=== PATIENT | female | born 1935 | race Caucasian/White ===

== ENCOUNTER 2016-04-01 12:51 | Inpatient (IN) | payer MEDICARE ==
[~2016-04-01] VITALS: Ht 152.4 cm; Wt 54.7 kg
[~2016-04-01 12:51] MED LIST: ASP325T PO; ATR20T PO; DEPRESSION MED; METO-333 PO; SERT50TA PO
[2016-04-01] MEDS ORDERED: AZITHROMYCIN IV ADD-VANTAGE 500 MG in SODIUM CHLORIDE (ADD-VANTAGE) 250 ML IV NR (13:07)
[2016-04-01] MEDS ORDERED: RT-ALBUTEROL/IPRATROPIUM 3 ML (DUONEB) VIAL INH NR (13:15)
--- NOTE | 2016-04-01 13:15 | History & Physicial ---
History of Present Illness History of Present Illness Reason for visit/HPI MRS. ASHER PRESENTED TO THE [facility] [place] WITH CONCERN FOR CONFUSION, WEAKNESS , FEVER. HER GRANDDAUGHTER TOOK HER OUT TO BE ACUTELY EVALUATED BECAUSE OF THE AFOREMENTIONED CONCERNS. SHE WAS FOUND TO HAVE A FEVER OF 102F, POSITIVE FOR INFLUENZA A AND CHEST XRAY SHOWED POSSIBLE PNEUMONIA. UA WAS OBTAINED WELL WHICH WAS POSITIVE FOR URINARY TRACT INFECTION. THE NURSE PRACTITIONER AT THE URGENT CARE CALLED FOR ADMISSION OF PT TO THE HOSPITAL. Date of Admission I consulted on this patient on 04/01/16 13:10 Attending Physician Jeanette Balbuena MD Admitting Physician JEANETTE BALBUENA MD Consult Allergies and Home Medications Allergies Coded Allergies: No Known Drug Allergies (Unverified , 08/15/13) Home Medications (Reported) Aspirin 325 Mg Tab #30 325 MG PO DAILY@0900 Prescribed by: RUBEN BAEZ on 08/17/13 0750 Atorvastatin 20 Mg Tablet #30 1 EACH PO DAILY Prescribed by: RACHID COBIAN on 08/17/13 0807 Metoprolol Tartrate 25 Mg Tablet #60 1 EACH PO BID Prescribed by: RACHID COBIAN on 08/17/13 0807 Sertraline Hcl 50 Mg Tablet 50 MG PO DAILY (Reported) Past Gurngom-Edeuvq-Jfvgwi Hx Patient Social History Marrital Status: Living Status: LIVES AT HOME ALONE, FAMILY CHECKS ON PT FREQUENTLY Employed/Student: retired Alcohol Use: Rarely Uses Smoking Status: Current Everyday Smoker (1/2PPD) 2nd Hand Smoke Exposure: Yes Physical Abuse Screen: No Sexual Abuse: No Recent Foreign Travel: No Contact w/other who traveled: No Recent Hopitalizations: No Recent Infectious Disease Expo: No Immunizations Up To Date Tetanus Booster (TDap): Unknown Seasonal Allergies Seasonal Allergies: No Surgeries HX Surgeries: Yes (PT HAS REFUSED COLONOSCOPY IN THE PAST) Surgeries: Cystectomy (MAY 1999) Respiratory Hx Respiratory Disorders: No Cardiovascular Hx Cardiovascular Disorders: Yes Cardiac Disorders: Coronary Artery Disease (NONSTMI), High Cholesterol, Hypertension Neurological Hx Neurological Disorders: Yes Neurological Disorders: Stroke (PT REFUSES TO TAKE PLAVIX) Reproductive System : No Female Reproductive Disorders: Denies PORTER BATH Hx: Menopausal Genitourinary Hx Genitourinary Disorders: No Gastrointestinal Hx Gastrointestinal Disorders: No Musculoskeletal Hx Musculoskeletal Disorders: Yes Musculoskeletal Disorders: Arthritis Endocrine Hx Endocrine Disorders: No HEENT HX ENT Disorders: No Loss of Vision: Denies Hearing Impairment: Denies Cancer Hx Cancer: No Psychosocial Hx Psychiatric Problems: Yes Behavioral Health Disorders: Anxiety, Depression Integumentary HX Skin/Integumentary Disorder: No Blood Transfusions Adverse Reaction to a Blood Tr: No Reviewed Nursing Assessment Reviewed/Agree w Nursing PMH: Yes Family Medical History Significant Family History: Diabetes (DAUGHTER), Hypertension (DAUGHTER AND PT' S FATHER) Constitutional: chills fever malaise weakness EENTM: No hoarseness, No mouth pain, No throat pain, No throat swelling Respiratory: coughNo dyspnea on exertion, No short of breath Cardiovascular: No chest pain, No edema, No palpitations Gastrointestinal: No abdominal pain, No constipation, No diarrhea, No nausea Genitourinary: frequency Musculoskeletal: No back pain, muscle stiffness Skin: no symptoms reportedNo lesions, No lumps, No rash Psychiatric/Neurological: Depressed Weakness All Other Systems Reviewed Negative Unless Noted: Yes Physical Exam Vital Signs Capillary Refill : General Appearance: No Apparent Distress WD/WN Eyes: Bilateral Eye EOMI, Bilateral Eye Normal Inspection, Bilateral Eye PERRL HEENT: PERRL/EOMI Pharynx Normal Neck: Full Range of Motion Supple Respiratory: Chest Non Tender No Accessory Muscle Use No Respiratory Distress Crackles Cardiovascular: Regular Rate, Rhythm No Edema Gastrointestinal: Normal Bowel Sounds No Organomegaly Non Tender Soft Rectal: Deferred Back: Normal Inspection Extremity: Normal Capillary Refill No Pedal Edema Neurologic/Psychiatric: Alert Oriented x3 No Motor/Sensory Deficits Normal 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 URINARY TRACT INFECTION - REPEAT UA - CULTURE IF POSITIVE, PT STARTED ON ROCEPHIN, SHOULD COVER MOST URINARY ORGANISMS. HYPERTENSION - MONITOR PRESSURE - IF NEEDED RESTART HOME MEDS - PT HAS NOT BEEN REFILLING HER MEDICATIONS - NOT SURE IF SHE IS TAKING ANY MEDICATIONS AT ALL AT THIS TIME. HYPERLIPIDEMIA - CHECK LABS PRIOR TO DISCHARGE HX OF NON STMI- PT HAS BEEN NON COMPLIANT AND REFUSES USE OF PLAVIX, WILL CONTINUE WITH ASPIRIN. HX OF CVA - REFUSED PLAVIX ON PREVIOUS EXAM AND CONTINUE WITH ASPIRIN DEPRESSION - ANXIETY- PT RECENTLY LOST HER AND DAUGHTER ON THE SAME DAY WITHIN 4 HOURS OF PASSING, HER DAUGHTER . Admission Diagnosis INFLUENZA POSITIVE PNEUMONIA URINARY TRACT INFECTION HYPERTENSION HYPERLIPIDEMIA HX OF NON STMI HX OF CVA DEPRESSION ANXIETY JEANETTE BALBUENA MD Apr 01, 2016 13:15
--- OUTSIDE RECORDS SUMMARY | 2016-04-01 13:51 | XMS REPORT | Continuity of Care Document ---
Author Author [facility] Organization [facility] Address Unknown Phone Unavailable Allergies Medications Problems Procedures Results Encounters ACCT No. Visit Date/Time Discharge Status Pt. Type Provider Facility Loc./Unit Complaint [id number] 08/15/2013 14:05:00 2013 09:41:00 DIS Inpatient
[2016-04-01] MEDS ORDERED: CATHETER FLUSH 10 ML SYR IV PRN (14:15)
[2016-04-01] MEDS ORDERED: ONDANSETRON 4 MG/2 ML (SDV) Z0FRAN IVP PRN (14:30)
[2016-04-01] MEDS ORDERED: ACETAMINOPHEN 500 MG TAB (TYLENOL) PO PRN (14:30)
[2016-04-01] MEDS ORDERED: FLU TRIvalent (5 YOA+) 2016-17 (AFLURIA) 0.5 ML IM ONE (14:45)
--- NOTE | 2016-04-01 15:08 | Diagnostic Imaging Report ---
INDICATION: Shortness of breath. EXAMINATION: PA and lateral chest. FINDINGS: Heart size and pulmonary vascularity are normal. Lungs are clear. There are no effusions or pneumothoraces. IMPRESSION: Negative chest. Dictated by: Dictated on workstation # [id number]
[2016-04-01] MEDS: NS IV 1000 ML 1,000 ML IV SCH ×2 (15:22→23:15)
[2016-04-01] MEDS: ENOXAPARIN 40 MG/0.4 ML (LOVENOX) SYR SC SCH (15:22)
[2016-04-01] MEDS: cefTRIAXone INJECTION 1,000 MG in NS (IVPB) 50 ML IV SCH (15:22)
[2016-04-01] MEDS: LACTOBACILLUS Acidoph/Bulgar 1 GM (LACTINEX) PACKET PO SCH ×2 (15:22→20:12)
[2016-04-01] MEDS ORDERED: ASPI-808 PO (15:25)
[2016-04-01] MEDS ORDERED: FAMO20TA45 PO (15:25)
[2016-04-01 16:03] LABS: BILIRUBIN,URINE NEGATIVE (NEGATIVE); KETONES,URINE 1+ (NEGATIVE); LEUKOCYTE ESTERASE ,URINE NEGATIVE (NEGATIVE); NITRITE,URINE NEGATIVE (NEGATIVE); PH,URINE 6 (5-9); PROTEIN,URINE 1+ (NEGATIVE); UROBILINOGEN,URINE NORMAL (NORMAL)
[2016-04-01] MEDS ORDERED: RT-ALBUTEROL/IPRATROPIUM 3 ML (DUONEB) VIAL INH PRN (16:30)
[2016-04-01 16:45] VITALS: BP 157/78
[2016-04-01 16:48] LABS: BASOPHILS % (AUTO) 0 % (0-10); EOSINOPHILS % (AUTO) 0 % (0-10); LYMPHOCYTES # (AUTO) 0.7 X 10^3 (1.0-4.0); LYMPHOCYTES % (AUTO) 15 % (12-44); MEAN CORPUSCULAR HEMOGLOBIN 31 PG (25-34); MEAN CORPUSCULAR HGB CONC 34 G/DL (32-36); MEAN CORPUSCULAR VOLUME 90 FL (80-99); MEAN PLATELET VOLUME 11.4 FL (7.4-10.4); MONOCYTES # (AUTO) 0.3 X 10^3 (0.0-1.0); MONOCYTES % (AUTO) 7 % (0-12); NEUTROPHILS # (AUTO) 3.3 X 10^3 (1.8-7.8); NEUTROPHILS % (AUTO) 77 % (42-75); PLATELET COUNT 126 10^3/uL (130-400); RED BLOOD COUNT 4.31 10^6/uL (4.35-5.85); RED CELL DISTRIBUTION WIDTH 14.4 % (10.0-14.5); WHITE BLOOD COUNT 4.3 10^3/uL (4.3-11.0)
[2016-04-01 17:10] LABS: ALANINE AMINOTRANSFERASE 16 U/L (0-55); ALBUMIN 3.7 G/DL (3.2-4.5); ANION GAP 12 MMOL/L (5-14); ASPARTATE AMINO TRANSFERASE 20 U/L (5-34); BILIRUBIN,TOTAL 0.4 MG/DL (0.1-1.0); BLOOD UREA NITROGEN 11 MG/DL (7-18); BUN/CREATININE RATIO 14; CALCIUM 8.3 MG/DL (8.5-10.1); CARBON DIOXIDE 23 MMOL/L (21-32); CHLORIDE 104 MMOL/L (98-107); CREATININE SERUM 0.78 MG/DL (0.60-1.30); GFR ESTIMATED > 60; GLUCOSE 88 MG/DL (70-105); POTASSIUM 3.3 MMOL/L (3.6-5.0); SODIUM 139 MMOL/L (135-145); TOTAL PROTEIN 6.2 G/DL (6.4-8.2)
[2016-04-01] MEDS: RT-ALBUTEROL/IPRATROPIUM 3 ML (DUONEB) VIAL INH SCH (20:05)
[2016-04-01] MEDS: FAMOTIDINE 20 MG (PEPCID) TABLET PO SCH (20:12)
[2016-04-01] MEDS: OSELTAMIVIR 75 MG (TAMIFLU) BOX OF 10 PO SCH (20:12)
[2016-04-01 20:30] VITALS: BP 192/85
[2016-04-02 00:47] VITALS: BP 160/84
[2016-04-02 04:00] VITALS: BP 120/64
[2016-04-02 06:25] LABS: RED BLOOD COUNT 3.94 10^6/uL (4.35-5.85); RED CELL DISTRIBUTION WIDTH 14.2 % (10.0-14.5); WHITE BLOOD COUNT 5.2 10^3/uL (4.3-11.0)
[2016-04-02] MEDS: LACTOBACILLUS Acidoph/Bulgar 1 GM (LACTINEX) PACKET PO SCH ×4 (06:33→20:50)
[2016-04-02 06:50] LABS: ALANINE AMINOTRANSFERASE 81 U/L (0-55); ALBUMIN 3.2 G/DL (3.2-4.5); ANION GAP 9 MMOL/L (5-14); ASPARTATE AMINO TRANSFERASE 98 U/L (5-34); BILIRUBIN,TOTAL 0.3 MG/DL (0.1-1.0); BLOOD UREA NITROGEN 11 MG/DL (7-18); BUN/CREATININE RATIO 15; CALCIUM 7.8 MG/DL (8.5-10.1); CARBON DIOXIDE 23 MMOL/L (21-32); CHLORIDE 107 MMOL/L (98-107); CREATININE SERUM 0.73 MG/DL (0.60-1.30); GFR ESTIMATED > 60; GLUCOSE 120 MG/DL (70-105); POTASSIUM 3.1 MMOL/L (3.6-5.0); SODIUM 139 MMOL/L (135-145); TOTAL PROTEIN 5.2 G/DL (6.4-8.2)
[2016-04-02] MEDS: RT-ALBUTEROL/IPRATROPIUM 3 ML (DUONEB) VIAL INH SCH ×3 (07:00→20:35)
[2016-04-02] MEDS: OSELTAMIVIR 75 MG (TAMIFLU) BOX OF 10 PO SCH ×2 (07:38→20:51)
[2016-04-02] MEDS: FAMOTIDINE 20 MG (PEPCID) TABLET PO SCH ×2 (07:38→20:50)
[2016-04-02] MEDS: NS IV 1000 ML 1,000 ML IV SCH (07:40)
[2016-04-02 08:00] VITALS: BP 142/75
--- NOTE | 2016-04-02 08:09 | Progress Note (SOAP) ---
Subjective Subjective/Events-last exam PT REPORTS THAT SHE IS FEELING BETTER TODAY - SHE STATES THAT SHE WOULD LIKE TO GO HOME TODAY. SHE REPORTS THAT SHE DOES NOT HAVE ANY ABDOMINAL PAIN, NO NAUSEA, NO CHEST PAIN , NO SHORTNESS OF BREATH. Review of Systems General: No Chills, No Fatigue HEENT: No Head Aches Pulmonary: No Dyspnea, Cough Cardiovascular: No: Chest Pain, Palpitations Gastrointestinal: No: Abdominal Pain, Nausea Genitourinary: No Dysuria Musculoskeletal: No: back pain Neurological: No: Confusion, Weakness Objective Exam Vital Signs Date Time Temp Pulse Resp B/P Pulse Ox O2 Delivery O2 Flow Rate FiO2 04/02/16 07:00 92 04/02/16 04:00 98.4 83 18 120/64 95 Nasal Cannula 2.00 04/02/16 02:02 100.3 04/02/16 00:57 101.1 04/02/16 00:47 101.1 112 16 160/84 95 Nasal Cannula 2.00 04/01/16 23:08 93 04/01/16 21:00 Nasal Cannula 1.00 04/01/16 20:30 98.2 100 24 192/85 92 Room Air 04/01/16 20:05 92 04/01/16 16:45 97.8 74 18 157/78 95 Room Air 04/01/16 16:05 93 I & O 04/02/16 07:00 Intake Total 1240 ml Output Total 500 ml Balance 740 ml Capillary Refill : General Appearance: No Apparent Distress WD/WN Thin HEENT: PERRL/EOMI Pharynx Normal Neck: Full Range of Motion Supple Respiratory: Chest Non Tender Decreased Breath Sounds Cardiovascular: Regular Rate, Rhythm No Edema Gastrointestinal: normal bowel sounds non tender soft no organomegaly Extremity: Normal Capillary Refill No Pedal Edema Neurologic/Psychiatric: Alert Oriented x3 No Motor/Sensory Deficits Normal Mood/Affect Skin: Warm/Dry Lymphatic: No Adenopathy Results Lab Laboratory Tests 04/01/16 15:30: Urine Bacteria NEGATIVE, Urine Bilirubin NEGATIVE, Urine Casts NONE, Urine Clarity CLEAR, Urine Color YELLOW, Urine Crystals NONE, Urine Culture Indicated NO, Urine Glucose (UA) NEGATIVE, Urine Ketones 1+H, Urine Leukocyte Esterase NEGATIVE, Urine Mucus NEGATIVE, Urine Nitrite NEGATIVE, Urine Protein 1+H, Urine RBC 0-2, Urine RBC (Auto) 5+H, Urine Specific [place] 1.010L, Urine Squamous Epithelial Cells 2-5, Urine Urobilinogen NORMAL, Urine WBC NONE, Urine pH 6 04/01/16 16:30: Alanine Aminotransferase (ALT/SGPT) 16, Albumin 3.7, Alkaline Phosphatase 55, Anion Gap 12, Aspartate Amino Transf (AST/SGOT) 20, BUN/Creatinine Ratio 14, Basophils # (Auto) 0.0, Basophils (%) (Auto) 0, Blood Urea Nitrogen 11, Calcium Level 8.3L, Carbon Dioxide Level 23, Chloride Level 104, Creatinine 0.78, Eosinophils # (Auto) 0.0, Eosinophils (%) (Auto) 0, Estimat Glomerular Filtration Rate > 60, Glucose Level 88, Hematocrit 39, Hemoglobin 13.3, Lactic Acid Level 1.2, Lymphocytes # (Auto) 0.7L, Lymphocytes (%) (Auto) 15, Mean Corpuscular Hemoglobin 31, Mean Corpuscular Hemoglobin Concent 34, Mean Corpuscular Volume 90, Mean Platelet Volume 11.4H, Monocytes # (Auto) 0.3, Monocytes (%) (Auto) 7, Neutrophils # (Auto) 3.3, Neutrophils (%) (Auto) 77H, Platelet Count 126L, Potassium Level 3.3L, Red Blood Count 4.31L, Red Cell Distribution Width 14.4, Sodium Level 139, Total Bilirubin 0.4, Total Protein 6.2L, White Blood Count 4.3 04/02/16 06:10: Alanine Aminotransferase (ALT/SGPT) 81H, Albumin 3.2, Alkaline Phosphatase 61, Anion Gap 9, Aspartate Amino Transf (AST/SGOT) 98H, BUN/Creatinine Ratio 15, Blood Urea Nitrogen 11, Calcium Level 7.8L, Carbon Dioxide Level 23, Chloride Level 107, Creatinine 0.73, Estimat Glomerular Filtration Rate > 60, Glucose Level 120H, Hematocrit 35, Hemoglobin 12.0, Mean Corpuscular Hemoglobin 31, Mean Corpuscular Hemoglobin Concent 34, Mean Corpuscular Volume 90, Mean Platelet Volume 11.0H, Platelet Count 111L, Potassium Level 3.1L, Red Blood Count 3.94L, Red Cell Distribution Width 14.2, Sodium Level 139, Total Bilirubin 0.3, Total Protein 5.2L, White Blood Count 5.2 Assessment/Plan Assessment/Plan Assess & Plan/Chief Complaint INFLUENZA POSITIVE PNEUMONIA URINARY TRACT INFECTION HYPERTENSION HYPERLIPIDEMIA HX OF NON STMI HX OF CVA DEPRESSION ANXIETY ELEVATED LIVER ENZYMES INFLUENZA POSITIVE AND DX OF PNEUMONIA BY OUTSIDE XRAY - REPEAT CHEST XRAY NEGATIVE - STARTED ON TAMIFLU FOR TREATMENT OF FLU, MONITOR SERIAL CHEST XRAYS, MAT PROTOCOL AND BREATHING TREATMENTS. URINARY TRACT INFECTION - REPEAT UA - CULTURE IF POSITIVE, PT STARTED ON ROCEPHIN, SHOULD COVER MOST URINARY ORGANISMS. HYPERTENSION - MONITOR PRESSURE - IF NEEDED RESTART HOME MEDS - PT HAS NOT BEEN REFILLING HER MEDICATIONS - NOT SURE IF SHE IS TAKING ANY MEDICATIONS AT ALL AT THIS TIME. HYPERLIPIDEMIA - CHECK LABS PRIOR TO DISCHARGE HX OF NON STMI- PT HAS BEEN NON COMPLIANT AND REFUSES USE OF PLAVIX, WILL CONTINUE WITH ASPIRIN. HX OF CVA - REFUSED PLAVIX ON PREVIOUS EXAM AND CONTINUE WITH ASPIRIN DEPRESSION - ANXIETY- PT RECENTLY LOST HER AND DAUGHTER ON THE SAME DAY WITHIN 4 HOURS OF PASSING, HER DAUGHTER . ELEVATED LIVER ENZYMES - REPEAT LABS - CONTINUE WITH FLUIDS Diagnosis/Problems: Clinical Quality Measures DVT/VTE Risk/Contraindication: Risk Factor Score Per Nursin RFS Level Per Nursing on Admit: 3=High JEANETTE MASTERS MD Apr 02, 2016 08:09
[2016-04-02] MEDS ORDERED: KCL 20 MEQ TAB (K-DUR) PO NR (08:31)
[2016-04-02 12:00] VITALS: BP 157/82
[2016-04-02] MEDS ORDERED: cefTRIAXone 1 GM (ROCEPHIN) VIAL ONE (13:38)
[2016-04-02] MEDS ORDERED: NS (IVPB) 50 ML ONE (13:38)
[2016-04-02] MEDS: ENOXAPARIN 40 MG/0.4 ML (LOVENOX) SYR SC SCH (14:05)
[2016-04-02] MEDS: cefTRIAXone INJECTION 1,000 MG in NS (IVPB) 50 ML IV SCH (14:06)
[2016-04-02 22:15] VITALS: BP 170/86
[2016-04-03] VITALS: BP 160/78
[2016-04-03 04:00] VITALS: BP 128/64
[2016-04-03] MEDS ORDERED: DILTIAZEM 60 MG (CARDIZEM) TAB PO ONE (05:15)
[2016-04-03 05:33] LABS: MEAN PLATELET VOLUME 12.3 FL (7.4-10.4); RED BLOOD COUNT 4.32 10^6/uL (4.35-5.85); RED CELL DISTRIBUTION WIDTH 14.4 % (10.0-14.5); WHITE BLOOD COUNT 5.1 10^3/uL (4.3-11.0)
[2016-04-03] MEDS ORDERED: MAGNESIUM 1 GM/100 ML IVPB 100 ML IV ONE (05:45)
[2016-04-03] MEDS ORDERED: ENOXAPARIN 100 MG/1 ML (LOVENOX) SYR SC SCH ×2 (05:45→06:22)
[2016-04-03] MEDS ORDERED: KCL 10 MEQ TAB (MICRO K) PO ONE (05:45)
[2016-04-03 05:55] LABS: ANION GAP 13 MMOL/L (5-14); BLOOD UREA NITROGEN 9 MG/DL (7-18); BUN/CREATININE RATIO 12; CALCIUM 8.2 MG/DL (8.5-10.1); CARBON DIOXIDE 22 MMOL/L (21-32); CHLORIDE 105 MMOL/L (98-107); CREATININE SERUM 0.76 MG/DL (0.60-1.30); GFR ESTIMATED > 60; GLUCOSE 96 MG/DL (70-105); POTASSIUM 3.8 MMOL/L (3.6-5.0); SODIUM 140 MMOL/L (135-145)
[2016-04-03] MEDS: LACTOBACILLUS Acidoph/Bulgar 1 GM (LACTINEX) PACKET PO SCH ×4 (06:00→21:00)
[2016-04-03 08:00] VITALS: BP 94/54
[2016-04-03] MEDS: FAMOTIDINE 20 MG (PEPCID) TABLET PO SCH ×2 (08:30→21:05)
[2016-04-03] MEDS: OSELTAMIVIR 75 MG (TAMIFLU) BOX OF 10 PO SCH ×2 (08:31→21:04)
[2016-04-03] MEDS: RT-ALBUTEROL/IPRATROPIUM 3 ML (DUONEB) VIAL INH SCH ×3 (09:10→19:29)
--- NOTE | 2016-04-03 10:53 | Progress Note (SOAP) ---
Subjective Subjective/Events-last exam PT REPORTS THAT SHE IS FEELING FATIGUED THIS MORNING, BUT SHE HAS LESS OF A COUGH THIS MORNING THAN YESTERDAY SHE REPORTS THAT HER APPETITE IS OKAY. SHE DENIES ANY CHEST PAIN OR SHORTNESS OF BREATH, DENIES FEELING THE PALPITATIONS. Review of Systems General: Fatigue HEENT: No Head Aches, No Dysphasia Pulmonary: No Dyspnea, No Cough Cardiovascular: No: Chest Pain, Palpitations Gastrointestinal: No: Abdominal Pain, Nausea Genitourinary: Frequency Musculoskeletal: No: back pain Neurological: No: Confusion, Weakness Objective Exam Vital Signs Date Time Temp Pulse Resp B/P Pulse Ox O2 Delivery O2 Flow Rate FiO2 04/03/16 09:10 90 3.00 04/03/16 04:00 98.4 120 20 128/64 97 Nasal Cannula 2.00 04/03/16 00:00 98.0 89 24 160/78 96 Nasal Cannula 3.00 04/02/16 22:15 170/86 04/02/16 21:05 98.7 107 20 99 Nasal Cannula 2.00 04/02/16 20:50 Nasal Cannula 3.00 04/02/16 20:36 92 4.00 04/02/16 16:50 100.0 93 20 99 Nasal Cannula 2.00 04/02/16 13:51 98 04/02/16 12:00 99.0 80 20 157/82 98 Nasal Cannula 2.00 I & O 04/03/16 07:00 Intake Total 2050 ml Output Total 250 ml Balance 1800 ml Capillary Refill : General Appearance: No Apparent Distress WD/WN HEENT: PERRL/EOMI Pharynx Normal Neck: Full Range of Motion Supple Respiratory: Chest Non Tender Lungs Clear Normal Breath Sounds No Accessory Muscle Use No Respiratory Distress Cardiovascular: Irregularly Irregular Gastrointestinal: normal bowel sounds non tender soft no organomegaly no pulsatile mass Extremity: No Pedal Edema Neurologic/Psychiatric: Alert Oriented x3 No Motor/Sensory Deficits Normal Mood/Affect Skin: Warm/Dry Lymphatic: No Adenopathy Results Lab Laboratory Tests 04/03/16 04:40: Anion Gap 13, BUN/Creatinine Ratio 12, Blood Urea Nitrogen 9, Calcium Level 8.2L , Carbon Dioxide Level 22, Chloride Level 105, Creatinine 0.76, Estimat Glomerular Filtration Rate > 60, Glucose Level 96, Hematocrit 39, Hemoglobin 13.1, Mean Corpuscular Hemoglobin 30, Mean Corpuscular Hemoglobin Concent 34, Mean Corpuscular Volume 90, Mean Platelet Volume 12.3H, Platelet Count 119L, Potassium Level 3.8, Red Blood Count 4.32L, Red Cell Distribution Width 14.4, Sodium Level 140, White Blood Count 5.1 Microbiology 04/01/16 Blood Culture - Preliminary, Resulted No growth 04/01/16 Gram Stain - Final, Resulted 04/01/16 Sputum Culture - Preliminary, Resulted Usual/normal carmen isolated. Assessment/Plan Assessment/Plan Assess & Plan/Chief Complaint INFLUENZA POSITIVE ATRIAL FIBRILLATION HYPERTENSION HYPERLIPIDEMIA HX OF NON STMI HX OF CVA DEPRESSION ANXIETY ELEVATED LIVER ENZYMES INFLUENZA POSITIVE AND DX OF PNEUMONIA BY OUTSIDE XRAY - REPEAT CHEST XRAY NEGATIVE - STARTED ON TAMIFLU FOR TREATMENT OF FLU, MONITOR SERIAL CHEST XRAYS, MAT PROTOCOL AND BREATHING TREATMENTS. URINARY TRACT INFECTION - REPEAT UA -NEGATIVE HYPERTENSION - MONITOR PRESSURE - IF NEEDED RESTART HOME MEDS - PT HAS NOT BEEN REFILLING HER MEDICATIONS - NOT SURE IF SHE IS TAKING ANY MEDICATIONS AT ALL AT THIS TIME. HYPERLIPIDEMIA - CHECK LABS PRIOR TO DISCHARGE HX OF NON STMI- PT HAS BEEN NON COMPLIANT AND REFUSES USE OF PLAVIX, WILL CONTINUE WITH ASPIRIN. HX OF CVA - REFUSED PLAVIX ON PREVIOUS EXAM AND CONTINUE WITH ASPIRIN DEPRESSION - ANXIETY- PT RECENTLY LOST HER AND DAUGHTER ON THE SAME DAY WITHIN 4 HOURS OF PASSING, HER DAUGHTER . ELEVATED LIVER ENZYMES - REPEAT LABS - PT REFUSED FLUIDS YESTERDAY - THEREFORE THEY WERE DISCONTINUED - MONITOR LAB THIS MORNING. ACUTE ONSET ATRIAL FIBRILLATION - IN THE MIDDLE OF THE NIGHT - PT GIVEN CARDIZEM , PLACED ON TELEMETRY, AND CONSULT PLACED TO DR. MALAVE. PT TO HAVE AN ECHO TODAY - AND START ON ELIQUIS 2.5MG BID DUE TO AGE AND WEIGHT. Diagnosis/Problems: Clinical Quality Measures DVT/VTE Risk/Contraindication: Risk Factor Score Per Nursin RFS Level Per Nursing on Admit: 3=High JEANETTE MASTERS MD Apr 03, 2016 10:53
[2016-04-03 11:15] LABS: ALBUMIN 3.4 G/DL (3.2-4.5); BILIRUBIN,DIRECT 0.2 MG/DL (0.0-0.3); BILIRUBIN,INDIRECT 0.2 MG/DL; BILIRUBIN,TOTAL 0.4 MG/DL (0.1-1.0); TOTAL PROTEIN 5.7 G/DL (6.4-8.2)
--- NOTE | 2016-04-03 11:28 | Consultation-Cardiology ---
HPI-Cardiology Cardiology Consultation: Date of Consultation 04/03/16 Date of Admission 04-01-16 Attending Physician Jeanette Balbuena MD Admitting Physician Jeanette Balbuena MD Consulting Physician Theodore Malave MD HPI: Chief Complaint: New onset a-fib with RVR Ms. Mann is an 80 year old female who was admitted on 04-01-16 with increasing dyspnea and productive cough. She tested positive of influenza. She developed new onset a-fib with RVR during the night. This morning she reports she is feeling much better. She does not report any CP, palpitations, syncope or near syncope. She states she is feeling better. She reports her breathing is better today. She reports productive cough. Her daughter is at the bedside. She smokes approx 1/2 pack of cigs per day. She only takes ASA 325mg daily for home medications. She reports intermittent ankle edema which is least upon awakening in the morning and increases as the day goes on. Review of Systems-Cardiology Review of Systems Constitutional: As described under HPI Eyes: No blurred vision, No drainage, No pain, No vision change Ears/Nose/Throat: No ear discharge, No ear pain, No nasal drainage, No ulcerations Respiratory: As described under HPI Cardiovascular: As described under HPI Gastrointestinal: No constipation, No diarrhea, No nausea, No vomiting, No stool coloration changes Genitourinary: No dysuria, No discharge, No frequency, No hematuria, No urgency Skin: No rash, No skin related problems, No ulcerations Psychiatric/Neurological: No anxiety, No depression, No focal weakness, No seizure, No syncope Hematologic: No bleeding abnormalities All Other Systems Reviewed Negative Unless Noted: Yes ELO-[id number] Hx Patient Social History Marrital Status: Living Status: LIVES AT HOME ALONE, FAMILY CHECKS ON PT FREQUENTLY Employed/Student: retired Alcohol Use: Denies Use Recreational Drug Use: No Smoking Status: Current Everyday Smoker Type Used: Cigarettes 2nd Hand Smoke Exposure: Yes Recent Foreign Travel: No Recent Infectious Disease Expo: No Physical Abuse Screen: No Sexual Abuse: No Immunizations Up To Date Tetanus Booster (TDap): Unknown Past Medical History PMH As described under Assessment. Family Medical History Family Medical History: She denies any family h/o CAD or SCD. Family History: G8 BROTHER Family history: Hypertension Hypercholesterolemia Allergies and Home Medications Allergies Coded Allergies: No Known Drug Allergies (Unverified , 08/15/13) Home Medications Aspirin 325 Mg Tablet 325 MG PO DAILY (Reported) Famotidine 20 Mg Tablet 20 MG PO DAILY PRN PRN INDIGESTION (Reported) Physical Exam-Cardiology Physical Exam Vital Signs/I&O Vital Sign - Last 12Hours 04/03/16 04/03/16 04/03/16 04/03/16 08:00 09:10 12:00 13:48 Temp 99.4 100.3 Pulse 71 87 Resp 20 24 B/P 94/54 126/93 Pulse Ox 91 90 93 97 O2 Delivery Nasal Cannula Nasal Cannula O2 Flow Rate 2.00 3.00 2.00 Intake and Output 04/03/16 00:00 Intake Total 1050 ml Output Total 250 ml Balance 800 ml Capillary Refill : Constitutional: appears stated ageNo apparent distress, well-developed well- nourished HEENT: PERRLNo discharge, hearing is well preserved oral hygience is goodNo ulceration, No xanthelasmas are seen Neck: No carotid bruit, carotid pulses are 2 + bilaterally Respiratory: No accessory muscle use, No respiratory distress, other ( diminished bases bilat) Cardiovascular: regular rate-rhythmNo JVD, S1 and S2 Gastrointestinal: No tender, soft roundNo spleenomegaly Extremities: No clubbing, No cyanosis, No significant edema Neurologic/Psychiatric: alert oriented x 3 power is 5/5 both on sides Skin: No rash, No ulcerations Data Review Labs Laboratory Tests 04/03/16 04:40: Alanine Aminotransferase (ALT/SGPT) 79H, Albumin 3.4, Alkaline Phosphatase 70, Anion Gap 13, Aspartate Amino Transf (AST/SGOT) 73H, BUN/Creatinine Ratio 12, Blood Urea Nitrogen 9, Calcium Level 8.2L, Carbon Dioxide Level 22, Chloride Level 105, Creatinine 0.76, Direct Bilirubin 0.2, Estimat Glomerular Filtration Rate > 60, Glucose Level 96, Hematocrit 39, Hemoglobin 13.1, Indirect Bilirubin 0.2, Mean Corpuscular Hemoglobin 30, Mean Corpuscular Hemoglobin Concent 34, Mean Corpuscular Volume 90, Mean Platelet Volume 12.3H, Platelet Count 119L, Potassium Level 3.8, Red Blood Count 4.32L, Red Cell Distribution Width 14.4, Sodium Level 140, Total Bilirubin 0.4, Total Protein 5.7L, White Blood Count 5.1 Microbiology 2/6/17 Blood Culture - Preliminary, Resulted No growth 04/01/16 Gram Stain - Final, Complete 04/01/16 Sputum Culture - Final, Complete Usual/normal carmen isolated. Radiology NAME: ERIK MANN [facility] REC#: [id number] PT STATUS: ADM IN : 1935 PHYSICIAN: JEANETTE BALBUENA MD ADMIT DATE: 04/01/16 Signed Date of Exam: 04/01/16 CHEST PA/LAT (2 VIEW) INDICATION: Shortness of breath. EXAMINATION: PA and lateral chest. FINDINGS: Heart size and pulmonary vascularity are normal. Lungs are clear. There are no effusions or pneumothoraces. IMPRESSION: Negative chest. Dictated by: Dictated on workstation # [id number] Dict: 04/01/16 1506 Trans: 04/01/16 1526 [id number] Interpreted by: SAHRA COLLAZO Electronically signed by:SAHRA COLLAZO 04/01/16 1528 ECG Impression ECG Initial ECG Impression: Atrial Fibrillation w/RVR A/P-Cardiology Assessment/Admission Diagnosis New onset a-fib with RVR - currently SR with controlled rate H/O CVA per MRI of 2013 - no residual H/O NSTEMI in 2013 - evaluated by Dr. Obregon, pt refused cardiac cath and desired conservative and empiric management Echocardiogram of [address] Obregon showed LVEF 60%; mild MR /TR; PASP 40 mmHg HTN HLP Influenza - management per medical services Tobaccoism - cessation advised Discussion and Recomendations New onset of a-fib with RVR. She has converted to SR with a controlled rate. We will continue Cardizem CD. The other issue is of OAC. She has a previous h/ o non-hemorrhagic CVA in 2013 with no significant carotid disease per u/s. We will start her OAC with Eliquis. We will do an echocardiogram to evaluate structure and LVEF. We will check fasting lipid panel. We will reduce ASA to 81mg daily. We have discussed all of the above with her and her daughter. They verbalize understanding agreement. We have spoken with Dr. Balbuena. We would like to thank her for this consult. This consult is being scribed by Natalia Medina APRN on behalf of Dr. Malave after discussion regarding plan of care. Clinical Quality Measures DVT/VTE Risk/Contraindication: Risk Factor Score Per Nursin RFS Level Per Nursing on Admit: 3=High Physician Assessment Physician Assessment Lungs: clear Cor: irreg A&R * As documented in our note above * Relatively complex management due to multiple comorbidities * Long-acting dilt for vent rate control and apixaban for stroke prophylaxis * I discussed her CV issues with her in detail and answered questions * I also discussed her case with Dr Balbuena this am PITER MEDINA Apr 03, 2016 11:28 THEODORE MALAVE MD [facility] Apr 03, 2016 17:02
[2016-04-03 12:00] VITALS: BP 126/93
[2016-04-03] MEDS ORDERED: APIXABAN 5 MG (ELIQUIS) TABLET PO NR (12:00)
[2016-04-03] MEDS: cefTRIAXone INJECTION 1,000 MG in NS (IVPB) 50 ML IV SCH (14:57)
[2016-04-03 16:30] VITALS: BP 127/60
[2016-04-03] MEDS ORDERED: DILTIAZEM 240 MG (CARDIZEM CD) CAP PO SCH (18:00)
[2016-04-03 20:20] VITALS: BP 122/64
[2016-04-03] MEDS: APIXABAN 2.5 MG (ELIQUIS) TABLET PO SCH (21:05)
[2016-04-04] VITALS: BP 128/86
[2016-04-04 04:00] VITALS: BP 122/77
[2016-04-04] MEDS: LACTOBACILLUS Acidoph/Bulgar 1 GM (LACTINEX) PACKET PO SCH (06:00)
[2016-04-04 07:40] LABS: ALANINE AMINOTRANSFERASE 71 U/L (0-55); ANION GAP 7 MMOL/L (5-14); ASPARTATE AMINO TRANSFERASE 55 U/L (5-34); BILIRUBIN,TOTAL 0.5 MG/DL (0.1-1.0); BLOOD UREA NITROGEN 7 MG/DL (7-18); BUN/CREATININE RATIO 10; CALCIUM 7.8 MG/DL (8.5-10.1); CARBON DIOXIDE 26 MMOL/L (21-32); CHLORIDE 107 MMOL/L (98-107); CHOLESTEROL 162 MG/DL (< 200); DIRECT LDL 105 MG/DL (1-129); GFR ESTIMATED > 60; GLUCOSE 90 MG/DL (70-105); MAGNESIUM 2.1 MG/DL (1.8-2.4); POTASSIUM 3.2 MMOL/L (3.6-5.0); SODIUM 140 MMOL/L (135-145); TRIGLYCERIDES 102 MG/DL (<150); VLDL CHOLESTEROL 20 MG/DL (5-40)
[2016-04-04] MEDS: RT-ALBUTEROL/IPRATROPIUM 3 ML (DUONEB) VIAL INH SCH (07:44)
[2016-04-04 08:00] VITALS: BP 135/62
--- NOTE | 2016-04-04 08:40 | Discharge Summary ---
Diagnosis/Chief Complaint Date of Admission Apr 01, 2016 at 13:43 Date of Discharge 04/04/16 Admission Diagnosis Admission Diagnosis INFLUENZA POSITIVE PNEUMONIA URINARY TRACT INFECTION HYPERTENSION HYPERLIPIDEMIA HX OF NON STMI HX OF CVA DEPRESSION ANXIETY Discharge Diagnosis INFLUENZA POSITIVE PNEUMONIA URINARY TRACT INFECTION HYPERTENSION HYPERLIPIDEMIA HX OF NON STMI HX OF CVA DEPRESSION ANXIETY Reason Hospital Visit MRS. ASHER PRESENTED TO THE [facility] WITH CONCERN FOR CONFUSION, WEAKNESS , FEVER. HER GRANDDAUGHTER TOOK HER OUT TO BE ACUTELY EVALUATED BECAUSE OF THE AFOREMENTIONED CONCERNS. SHE WAS FOUND TO HAVE A FEVER OF 102F, POSITIVE FOR INFLUENZA A AND CHEST XRAY SHOWED POSSIBLE PNEUMONIA. UA WAS OBTAINED WELL WHICH WAS POSITIVE FOR URINARY TRACT INFECTION. THE NURSE PRACTITIONER AT THE URGENT CARE CALLED FOR ADMISSION OF PT TO THE HOSPITAL. Discharge Summary Discharge Physical Examination Allergies: Coded Allergies: No Known Drug Allergies (Unverified , 08/15/13) Vitals & I&Os General Appearance: Alert, Oriented X3, Cooperative HEENT: Atraumatic, PERRLA Respiratory: Clear to Auscultation Cardiovascular: Regular Rate Abdominal: Normal Bowel Sounds, Soft Skin: No Breakdown Neuro: Strength at 5/5 X4 Ext, Cranial Nerves 3-12 NL Psych/Mental Status: Mental Status NL, Mood NL Hospital Course NFLUENZA POSITIVE PNEUMONIA URINARY TRACT INFECTION HYPERTENSION HYPERLIPIDEMIA HX OF NON STMI HX OF CVA DEPRESSION ANXIETY INFLUENZA POSITIVE AND DX OF PNEUMONIA BY OUTSIDE XRAY - REPEAT CHEST XRAY - START ON PNEUMONIA PROTOCOL, STARTED ON TAMIFLU FOR TREATMENT OF FLU, MONITOR SERIAL CHEST XRAYS, MAT PROTOCOL AND BREATHING TREATMENTS. URINARY TRACT INFECTION - CONTINUE TREATMENT HYPERTENSION - MONITOR PRESSURE - IF NEEDED RESTART HOME MEDS - PT HAS NOT BEEN REFILLING HER MEDICATIONS - NOT SURE IF SHE IS TAKING ANY MEDICATIONS AT ALL AT THIS TIME. HYPERLIPIDEMIA - CHECKED LABS PRIOR TO DISCHARGE - STARTED ON STATIN HX OF NON STMI- PT HAS BEEN NON COMPLIANT AND REFUSES USE OF PLAVIX, WILL CONTINUE WITH ASPIRIN. HX OF CVA - REFUSED PLAVIX ON PREVIOUS EXAM AND CONTINUE WITH ASPIRIN DEPRESSION - ANXIETY- PT RECENTLY LOST HER AND DAUGHTER ON THE SAME DAY WITHIN 4 HOURS OF PASSING, HER DAUGHTER . Pending Labs Discharge Condition at discharge IMPROVED Instructions to patient/family Please see electonic discharge instructions given to patient. Discharge Medications Reviewed and agree with Discharge Medication list on patient's Discharge Instruction sheet Clinical Quality Measures DVT/VTE Risk/Contraindication: Risk Factor Score Per Nursin RFS Level Per Nursing on Admit: 3=High JEANETTE MASTERS MD Apr 04, 2016 08:40
[2016-04-04] MEDS ORDERED: APIX2.5T PO (08:42)
[2016-04-04] MEDS ORDERED: ASPI-999 PO (08:42)
[2016-04-04] MEDS ORDERED: DILT240C90 PO (08:42)
[2016-04-04] MEDS ORDERED: OSLT75C PO (08:43)
--- NOTE | 2016-04-04 08:45 | Discharge Inst-Complex ---
PDI Med Rec & Follow Up Appt. New Medications: Apixaban (Eliquis) 2.5 Mg Tablet 2.5 MG PO BID #60 Ref 6 TAB Aspirin (Aspirin) 81 Mg Tab.chew 81 MG PO DAILY #90 Ref 3 TAB Diltiazem HCl (Diltiazem 24Hr Cd) 240 Mg Cap.er.24h 240 MG PO DAILY@1800 #30 Ref 11 CAP Oseltamivir Phosphate (Tamiflu) 75 Mg Cap 0 EACH PO BID #1 PACKET Continued Medications: Famotidine (Pepcid AC) 20 Mg Tablet 20 MG PO DAILY PRN INDIGESTION TAB Discontinued Medications: Aspirin (Aspirin) 325 Mg Tablet 325 MG PO DAILY TAB Prescription: Transmitted to Pharmacy Patient Instructions: two week follow up with jeanmarie ramirez two week follow up with dr. bhatia Activity, Diet and PDI Resume Normal Activity: Yes Discharge Diet: Regular Diet Diet After 24 Hours: Clear Liquid if Nauseous Drink 6-8 Glasses of Fluid/Day: Yes Driving Instructions: No Driving for 24 Hours Symptoms to Reoprt to : Fever Over 101 Degrees F, Pain/Pressure in Chest, Questions/Concerns, Nausea/Vomiting, Shortness of Breath For Problems or Questions: Contact Your Physician, Go to Emergency Room JEANETTE MASTERS MD Apr 04, 2016 08:45
[2016-04-04] MEDS: APIXABAN 2.5 MG (ELIQUIS) TABLET PO SCH (09:00)
[2016-04-04] MEDS ORDERED: OSELTAMIVIR 75 MG (TAMIFLU) BOX OF 10 PO SCH (09:00)
[2016-04-04] MEDS ORDERED: ASPIRIN 81 MG CHEW (CHILDREN'S ASA) PO SCH (09:00)
[2016-04-04] MEDS: FAMOTIDINE 20 MG (PEPCID) TABLET PO SCH (09:00)
[2016-04-04] MEDS: OSELTAMIVIR 75 MG (TAMIFLU) BOX OF 10 PO SCH (09:01)
--- NOTE | 2016-04-04 09:25 | ECHOCARDIOGRAPHY REPORT ---
PROCEDURE PHYSICIAN: RACHID COBIAN DATE OF PROCEDURE: 04/03/2016 TWO DIMENSIONAL ECHOCARDIOGRAM REPORT PRIMARY PHYSICIAN: OTHER PHYSICIAN: REFERRING PHYSICIAN: Dr. Tayla Balbuena ORDERING PHYSICIAN: INDICATION FOR THE PROCEDURE: 1. UTI. 2. Pneumonia. MEASUREMENTS DERIVED VALUES LV DIAMETER (LAX) NORMALS NORMALS Diastolic 3.5 (3.6-5.2) Eject. Fract. 45% (60%+/-6%) Systolic (2.3-3.9) Diastolic Vol. % Shortening (0.22-0.42) Systolic Vol. Aortic Root IVS THICKNESS Diastolic 1.5 (0.6-1.1) LVPW THICKNESS Diastolic 1.6 (0.6-1.1) LA DIAMETER Systolic 3.5 (2.1-3.7) FINDINGS: 1. Technical quality is acceptable. 2. The left ventricle is normal in size with moderate to severe left ventricular hypertrophy noted diffusely. Severe hypokinesia involving the anterior wall and anterior septum. Systolic function is reduced. Estimated ejection fraction 45%. 3. The left atrium is enlarged. There is no clot or thrombus were seen within the left atrium. I believe the measurement of the left atrium is significantly larger than the 3.5 recorded number. 4. The right atrium is enlarged. Right ventricle is normal in size. No clot or thrombus were seen. 5. Mitral valve is calcified with mild mitral regurgitation noted by color Doppler flow. No mitral valve prolapse. No mitral valve stenosis. 6. Aortic valve is functioning normally. There is no significant aortic valve stenosis or regurgitation was seen. 7. Tricuspid valve is normal in morphology with moderate tricuspid regurgitation noted by color Doppler flow. Doppler across tricuspid valve estimated pulmonary artery pressure of 22+ right atrial pressure. 8. Pulmonic valve is functioning normally. 9. No pericardial effusion. IN CONCLUSION: 1. Moderate to severe left ventricular hypertrophy noted diffusely. Hypokinesia involving the anterior wall and anterior septum. Systolic function is reduced. Estimated ejection fraction 45%. 2. Left atrial enlargement. 3. Dilated right atrium with prominent right heart chambers. 4. Mild mitral regurgitation. Moderate tricuspid regurgitation. 5. Estimated pulmonary artery pressure of 35 mmHg. Job ID: [id number] Dictated Date: 04/03/2016 16:35:12 Accountant Controller Date: 04/04/2016 09:20:58 / brittny
--- NOTE | 2016-04-04 10:13 | Progress Note-Cardiology ---
Cardiology SOAP Progress Note Subjective: Sitting up in a chair at the bedside. States she feels good and wants to go home. No c/o CP, dyspnea, palpitations, syncope or near syncope. Objective: I&O/Vital Signs Vital Sign - Last 12Hours 04/04/16 04/04/16 04/04/16 04/04/16 07:00 07:46 08:00 08:51 Temp 97.7 Pulse 67 71 Resp 20 B/P 135/62 Pulse Ox 98 97 O2 Delivery Nasal Cannula Nasal Cannula O2 Flow Rate 3.00 3.00 3.00 Intake and Output 04/04/16 00:00 Intake Total 1610 ml Output Total 250 ml Balance 1360 ml Weight (Pounds): 120 Weight (Ounces): 8.0 Weight (Calculated Kilograms): 54.318677 Constitutional: appears stated ageNo apparent distress, well-developed well- nourished Respiratory: No accessory muscle use, No respiratory distress, other ( diminished bases bilat) Cardiovascular: regular rate-rhythmNo JVD, S1 and S2 Gastrointestional: No tender, soft roundNo spleenomegaly Extremities: No clubbing, No cyanosis, No significant edema Neurologic/Psychiatric: alert oriented x 3 power is 5/5 both on sides Skin: No rash, No ulcerations Results/Procedures: Labs Laboratory Tests 04/04/16 06:57: Alanine Aminotransferase (ALT/SGPT) 71H, Albumin 3.0L, Alkaline Phosphatase 56, Anion Gap 7, Aspartate Amino Transf (AST/SGOT) 55H, BUN/Creatinine Ratio 10, Blood Urea Nitrogen 7, Calcium Level 7.8L, Carbon Dioxide Level 26, Chloride Level 107, Cholesterol Level 162, Creatinine 0.70, Estimat Glomerular Filtration Rate > 60, Glucose Level 90, HDL Cholesterol 38L, LDL Cholesterol Direct 105, Magnesium Level 2.1, Potassium Level 3.2L, Sodium Level 140, Total Bilirubin 0.5, Total Protein 5.0L, Triglycerides Level 102, VLDL Cholesterol 20 Microbiology 04/01/16 Blood Culture - Preliminary, Resulted No growth 04/01/16 Gram Stain - Final, Complete 04/01/16 Sputum Culture - Final, Complete Usual/normal carmen isolated. A/P: Assessment: New onset a-fib with RVR - currently SR with controlled rate H/O CVA per MRI of 2013 - no residual H/O NSTEMI in 2013 - evaluated by Dr. Obregon, pt refused cardiac cath and desired conservative and empiric management Echocardiogram of [address] Obregon showed LVEF 60%; mild MR /TR; PASP 40 mmHg HTN HLP Influenza - management per medical services Tobaccoism - cessation advised Plan: New onset of a-fib with RVR She has converted to SR with a controlled rate. We will continue Cardizem CD We will continue OAC with Eliquis We have discussed with her the importance of medication compliance We will see her in f/u in 2 weeks Physician Assessment Physician Assessment Lungs: clear Cor: reg A&R * As documented in our note above * I spoke with her in detail and answered questions * Outpatient f/u advised * Pros and cons of card med reviewed PITER HERNANDEZ Apr 04, 2016 10:13 KAYLA MALAVE MD FACP [facility] Apr 04, 2016 17:58 She has converted to SR with a controlled rate. We will continue Cardizem CD We will continue OAC with Eliquis We have discussed with her the importance of medication compliance We will see her in f/u in 2 weeks PITER HERNANDEZ Apr 04, 2016 10:13
[2016-04-04] MEDS ORDERED: cefTRIAXone INJECTION 1,000 MG in NS (IVPB) 50 ML IV SCH (14:00)
== END 2016-04-04 10:37 | disposition home or self-care (01) | DRG 153 ==
LOC: EDBD → MERGE 12:51 → 4TH 13:43
PROVIDERS: ADMIT Family Medicine; ATTEND Family Medicine
DX: J11.1 Influenza due to unidentified influenza virus with other respiratory manifestations (principal); N39.0 Urinary tract infection, site not specified; F17.210 Nicotine dependence, cigarettes, uncomplicated; I10 Essential (primary) hypertension; I48.91 Unspecified atrial fibrillation; I25.10 Atherosclerotic heart disease of native coronary artery without angina pectoris; I25.2 Old myocardial infarction; Z66 Do not resuscitate; I08.1 Rheumatic disorders of both mitral and tricuspid valves; E78.00 Pure hypercholesterolemia, unspecified; E78.5 Hyperlipidemia, unspecified; F32.9 Major depressive disorder, single episode, unspecified; F41.9 Anxiety disorder, unspecified; R74.8 Abnormal levels of other serum enzymes; Z91.19 Patient's noncompliance with other medical treatment and regimen; Z86.73 Personal history of transient ischemic attack (TIA), and cerebral infarction without residual deficits; Z79.82 Long term (current) use of aspirin
CPT/HCPCS: 36415; 71020; 80048; 80053; 80061; 80076; 81000; 83605; 83735; 85025; 85027; 87040; 87070; 87205; 93005; 93306; 94640; 94664; 94760

== ENCOUNTER 2022-03-03 14:11 | Inpatient (IN) | payer MEDICARE ==
[~2022-03-03] VITALS: Ht 150 cm; Wt 46.3 kg
[~2022-03-03 14:11] MED LIST changes: +APIX2.5T PO; +ASPI-808 PO; +ASPI-999 PO; +DILT240C90 PO; +FAMO20TA45 PO; +OSLT75C PO
--- NOTE | 2022-03-03 14:29 | ED Neurological Problem ---
General Chief Complaint: Neuro-Stroke Like Symptoms Stated Complaint: POSS STROKE Source: patient, family, EMS Exam Limitations: no limitations History of Present Illness Date Seen by Provider: Mar 03, 2022 Time Seen by Provider: 14:15 Initial Comments History was obtained from a combination of patient, EMS, and daughter. Patient is a 86-year-old female who presents to the emergency department via EMS for evaluation of increased left-sided weakness that began this morning when patient woke up. Patient states she did not have this level of weakness in the left side last night when she went to bed. She does endorse nausea and vomiting last night but none today. Patient states she woke up and had to use the res troom but was unable to get out of the bed or walk. Patient's great granddaughter was staying with her. Great granddaughter called patient's daughter who then called EMS. Daughter states patient has had some decline in her level of functioning and mentation over the last 2 to 3 weeks. Other than the vomiting last night, patient denies any recent illness. Patient currently only takes an 81 mg dose of aspirin daily. She denies taking any other medications normally. Patient is a current smoker. Patient did have a history of stroke approximately 2 years ago per daughter. Patient reportedly has a residual deficit in her left hand from that stroke. Allergies and Home Medications Allergies Coded Allergies: No Known Drug Allergies (Unverified , 08/15/13) Patient Home Medication List Home Medication List Reviewed: Yes Apixaban (Eliquis) 2.5 Mg Tablet, 2.5 MG PO BID Prescribed by: JEANETTE MASTERS on 04/04/16 08 Aspirin (Aspirin) 81 Mg Tab.chew, 81 MG PO DAILY Prescribed by: JEANETTE MASTERS on 04/04/16 08 Diltiazem HCl (Diltiazem 24Hr Cd) 240 Mg Cap.er.24h, 240 MG PO DAILY@1800 Prescribed by: JEANETTE MASTERS on 04/04/16 08 Famotidine (Pepcid AC) 20 Mg Tablet, 20 MG PO DAILY PRN for INDIGESTION, (Reported) Entered as Reported by: LISA LIM on 04/01/16 152 Oseltamivir Phosphate (Tamiflu) 75 Mg Cap, 0 EACH PO BID Prescribed by: JEANETTE MASTERS on 04/04/16 0843 Review of Systems Review of Systems Constitutional: no symptoms reported Eyes: No Symptoms Reported Ears, Nose, Mouth, Throat: no symptoms reported Respiratory: no symptoms reported Cardiovascular: no symptoms reported Gastrointestinal: no symptoms reported Genitourinary: no symptoms reported Skin: no symptoms reported Psychiatric/Neurological: See HPI, Numbness, Unable to Move Lower Ext, Unable to Move Upper Ext, Weakness Endocrine: No Symptoms Reported Hematologic/Lymphatic: No Symptoms Reported Past [id number] Hx Patient Social History Tobacco Use?: Yes Immunizations Up To Date Tetanus Booster (TDap): Unknown Seasonal Allergies Seasonal Allergies: No Past Medical History Surgeries: Yes Cystectomy Respiratory: No Currently Using CPAP: No Currently Using BIPAP: No Cardiac: No Coronary Artery Disease, High Cholesterol, Hypertension Neurological: Yes Stroke Reproductive Disorders: No Female Reproductive Disorders: Denies Sexually Transmitted Disease: No HIV/AIDS: No Genitourinary: No Gastrointestinal: Yes Gastroesophageal Reflux Musculoskeletal: Yes Arthritis Endocrine: No HEENT: No Loss of Vision: Denies Hearing Impairment: Denies Cancer: No Psychosocial: No Depression Integumentary: No Blood Disorders: No Adverse Reaction/Blood Tranf: No Family Medical History Family history: Hypertension G8 BROTHER Hypercholesterolemia G8 BROTHER No Pertinent Family Hx Physical Exam Vital Signs Vital Signs - First Documented 03/03/22 14:15 Temp 36.2 Pulse 98 Resp 24 B/P (MAP) 182/133 (149) Pulse Ox 95 O2 Delivery Room Air Capillary Refill : Height, Weight, BMI Height: 5'0.00" Weight: 120lbs. 8.0oz. 54.639958so; 23.5 BMI Method:Estimated General Appearance: WD/WN, no apparent distress HEENT: PERRL/EOMI, normal ENT inspection, TMs normal, pharynx normal Neck: non-tender, full range of motion, supple, normal inspection Respiratory: chest non-tender, no respiratory distress, no accessory muscle use, wheezing, expiration Cardiovascular: regular rate, rhythm Gastrointestinal: normal bowel sounds, non tender, soft, no organomegaly, no pulsatile mass Back: normal inspection, no vertebral tenderness Neurologic/Psychiatric: alert, motor weakness, sensory deficit Skin: normal color, warm/dry Stroke Onset of Symptoms Date of Onset of Symptoms: Mar 03, 2022 Symptoms onset unknown: Yes NIH Stroke Scale Assessment Select: Initial Level of Consciousness: 0=Alert (0), Level of Consciousness- Questions: 1=Answers one question (1), LOC Commands: 0=Performs both tasks (0), Gaze: Normal (0), Visual Ramirez: 0=No visual loss (0), Facial Movement (Facial Paresis): 0=Normal symmetrical mnt (0), Motor Function-Arms Right: 0=No drift (0), Motor Function-Arms Left: 4=No movement (4), Motor Function- Legs Right: 0=No drift (0), Motor Function-Legs Left: 4=No movement (4), Limb Ataxia: 1=Present in one limb (1), Sensory: 2=Severe to total loss (2), Best Language: 0=No aphasia (0), Dysarthria: 0=Normal (0), Extinction & Inattention: 0=No abnormality (0), Total: 12 Stroke Thrombolytic Exclusion Age 18 or Over: Yes History of CVA: Yes Uncontrolled Coagulation Defec: No Intracranial Hemorrhage: No Severe Hypertension: Yes GI or Bleed: No Subarachnoid Hemorrhage: No Intracranial Neoplasm/Aneurysm: No Oral Anticoagulants: No Surgery or Trauma: No Puncture of Non-Compressible V: No Recent CPR: No Diabetic Hemorrhagic Retinopat: No Organ Biopsy: No Recent Obstetric Delivery: No Glucose: No Significant Hepatic Dysfunctio: No NIH Stoke Scale >22: No Bacterial Endocarditis: No Pericarditis: No Improving Symptoms: No Platelets: No TPA Contraindication: No Progress/Results/Core Measures Results/Orders Lab Results Laboratory Tests Test 03/03/22 14:20 03/03/22 14:21 03/03/22 16:23 Range/Units White Blood Count 5.7 4.3-11.0 10^3/uL Red Blood Count 4.62 3.80-5.11 10^6/uL Hemoglobin 13.7 11.5-16.0 g/dL Hematocrit 42 35-52 % Mean Corpuscular Volume 91 80-99 fL Mean Corpuscular Hemoglobin 30 25-34 pg Mean Corpuscular Hemoglobin Concent 33 32-36 g/dL Red Cell Distribution Width 14.5 10.0-14.5 % Platelet Count 224 130-400 10^3/uL Mean Platelet Volume 11.5 9.0-12.2 fL Immature Granulocyte % (Auto) 0 % Neutrophils (%) (Auto) 69 42-75 % Lymphocytes (%) (Auto) 24 12-44 % Monocytes (%) (Auto) 5 0-12 % Eosinophils (%) (Auto) 1 0-10 % Basophils (%) (Auto) 1 0-10 % Neutrophils # (Auto) 3.9 1.8-7.8 10^3/uL Lymphocytes # (Auto) 1.4 1.0-4.0 10^3/uL Monocytes # (Auto) 0.3 0.0-1.0 10^3/uL Eosinophils # (Auto) 0.1 0.0-0.3 10^3/uL Basophils # (Auto) 0.1 0.0-0.1 10^3/uL Immature Granulocyte # (Auto) 0.0 0.0-0.1 10^3/uL Prothrombin Time 13.7 12.2-14.7 SEC INR Comment 1.0 0.8-1.4 Activated Partial Thromboplast Time 31 24-35 SEC D-Dimer 1.91 H 0.00-0.49 UG/ML Sodium Level 140 135-145 MMOL/L Potassium Level 4.4 3.6-5.0 MMOL/L Chloride Level 107 98-107 MMOL/L Carbon Dioxide Level 22 21-32 MMOL/L Anion Gap 11 5-14 MMOL/L Blood Urea Nitrogen 14 7-18 MG/DL Creatinine 0.77 0.60-1.30 MG/DL Estimat Glomerular Filtration Rate 75 BUN/Creatinine Ratio 18 Glucose Level 97 70-105 MG/DL Calcium Level 9.2 8.5-10.1 MG/DL Corrected Calcium 9.1 8.5-10.1 MG/DL Total Bilirubin 1.0 0.1-1.0 MG/DL Aspartate Amino Transf (AST/SGOT) 19 5-34 U/L Alanine Aminotransferase (ALT/SGPT) 13 0-55 U/L Alkaline Phosphatase 61 40-136 U/L Troponin I 0.155 H <0.028 NG/ML Total Protein 7.1 6.4-8.2 GM/DL Albumin 4.1 3.2-4.5 GM/DL Triglycerides Level 137 <150 MG/DL Cholesterol Level 261 H < 200 MG/DL LDL Cholesterol Direct 176 H 1-129 MG/DL VLDL Cholesterol 27 5-40 MG/DL HDL Cholesterol 66 H 40-60 MG/DL Glucometer 88 70-110 MG/DL Urine Color YELLOW Urine Clarity SL CLOUDY Urine pH 5.5 5-9 Urine Specific [place] 1.020 1.016-1.022 Urine Protein NEGATIVE NEGATIVE Urine Glucose (UA) NEGATIVE NEGATIVE Urine Ketones TRACE H NEGATIVE Urine Nitrite NEGATIVE NEGATIVE Urine Bilirubin NEGATIVE NEGATIVE Urine Urobilinogen 0.2 < = 1.0 MG/DL Urine Leukocyte Esterase NEGATIVE NEGATIVE Urine RBC (Auto) 2+ H NEGATIVE Urine RBC 5-10 H /HPF Urine WBC 0-2 /HPF Urine Squamous Epithelial Cells 0-2 /HPF Urine Crystals NONE /LPF Urine Bacteria NEGATIVE /HPF Urine Casts NONE /LPF Urine Mucus NEGATIVE /LPF Urine Culture Indicated NO My Orders Orders - BUDDY CREWS MANAGER PROGRAM Cbc With Automated Diff (03/03/22 14:21) Protime With Inr (03/03/22 14:21) Partial Thromboplastin Time (03/03/22 14:21) Comprehensive Metabolic Panel (03/03/22 14:21) Fibrin Degradation Products (03/03/22 14:21) Troponin I [place] (03/03/22 14:21) Ua Culture If Indicated (03/03/22 14:21) Chest 1 View, Ap/Pa Only (03/03/22 14:21) Ekg Tracing (03/03/22 14:21) Nothing By Mouth (03/03/22 Lunch) Accucheck Stat ONCE (03/03/22 14:21) Ed Iv/Invasive Line Start (03/03/22 14:21) Ed Iv/Invasive Line Start (03/03/22 14:21) Vital Signs Stroke Patient Q15M (03/03/22 14:21) Ct Head Wo-R/O Stroke (03/03/22 14:21) O2 (03/03/22 14:21) Monitor-Rhythm Ecg Trace Only (03/03/22 14:21) Post Thrombolytic Adminstratio (03/03/22 14:21) Ondansetron Injection (Zofran Injectio (03/03/22 14:30) Ondansetron Injection (Zofran Injectio (03/03/22 14:31) Ct Angio Head/Neck (03/03/22 15:29) Iohexol Injection (Omnipaque 350 Mg/Ml 1 (03/03/22 15:45) Received Contrast (Hold Metformin- Contr (03/03/22 15:45) Ns (Ivpb) (Sodium Chloride 0.9% Ivpb Bag (03/03/22 15:45) Ed Admission (Communication) (03/03/22 17:03) Medications Given in ED Current Medications Medications Dose Ordered Sig/Marquis Route Start Time Stop Time Status Last Admin Dose Admin Iohexol 100 ml ONCE ONCE IV 03/03/22 15:45 03/03/22 15:46 DC 03/03/22 15:34 75 ML Ondansetron HCl 4 mg ONCE ONCE IVP 03/03/22 14:30 03/03/22 14:31 DC 03/03/22 14:33 4 MG Sodium Chloride 100 ml ONCE ONCE IV 03/03/22 15:45 03/03/22 15:46 DC 03/03/22 15:35 80 ML Vital Signs/I&O 03/03/22 14:15 Temp 36.2 Pulse 98 Resp 24 B/P (MAP) 182/133 (149) Pulse Ox 95 O2 Delivery Room Air Progress Progress Note : Progress Note Patient has reported history of stroke approximately 2 years ago per daughter. Patient has residual left hand weakness related to that stroke per daughter. Patient previously had a brain MRI in July 2013 at this facility. I am currently unable to open the report due to an apparent IT issue. Patient is nontoxic on exam. Vital signs are notable for hypertension but are otherwise reassuring. She does have inability to move her left upper or lower extremities. No facial asymmetry appreciated. Cranial nerves II through XII grossly intact. No obvious visual deficit on exam. Patient denies any pain. Specifically she denies headache, stiff neck, or chest pain. Patient does currently smoke. She does have some mild expiratory wheezing but denies any subjective shortness of breath. Patient appears to be tolerating oral secretions without issue. No significant dysphagia or dysarthria noted. Last known normal was prior to going to bed last night. Initial NIH noted to be 12 upon arrival. Patient is outside the window for tPA. Stroke protocol was ordered including CBC, CMP, troponin, D-dimer, chest x-ray, and head CT. Differential diagnosis includes ischemic stroke or hemorrhagic stroke. Less likely etiologies include brain mass, brain abscess, encephalopathy. CBC without marked discrepancy. CMP without marked discrepancy. Troponin is elevated. D-dimer is elevated. Chest x-ray acutely negative on my wet read. Radiology report notes some cardiac enlargement and vascular congestion. CT of the head shows remote infarcts but nothing acute. CTA of the head/neck with significant arthrosclerotic disease as well as A2 level thrombus. This was discussed with the radiologist, Dr. Post. None of these findings are interventional in nature. I had a lengthy discussion with patient and daughter regarding the results. I stated admission to the hospital for further evaluation and treatment will be necessary. They agreed to this plan. I spoke with the hospitalist, Dr. Bermudez, who kindly agreed to admit. I had a discussion with both patient and daughter regarding CODE STATUS. Patient stated she "did not want to be brought back". She specifically stated she did not want to be intubated, have CPR, or to be given medicines to "restart her heart". The daughter was at bedside during this discussion. At the time of this discussion, patient was awake and alert. EKG : EKG Time: 14:46 Rate: 87 Rhythm: Normal Sinus ECG Impression: Nonspecific Changes Comment Nonspecific ST changes noted Departure Impression Primary Impression: Acute ischemic stroke Additional Impression: Elevated troponin Disposition: ADMITTED INPATIENT Condition: Stable Admissions Decision to Admit Reason: Admit from ER (General) Decision to Admit/Date: Mar 03, 2022 Departure-Patient Inst. Referrals: JEANETTE MASTERS MD (PCP/Family) Primary Care Physician BUDDY CREWS APRN Mar 03, 2022 14:29
[2022-03-03] MEDS ORDERED: ONDANSETRON 4 MG/2 ML (SDV) Z0FRAN IVP ONE (14:30)
[2022-03-03 14:31] LABS: BASOPHILS # (AUTO) 0.1 10^3/uL (0.0-0.1); BASOPHILS % (AUTO) 1 % (0-10); EOSINOPHILS # (AUTO) 0.1 10^3/uL (0.0-0.3); EOSINOPHILS % (AUTO) 1 % (0-10); HEMATOCRIT 42 % (35-52); HEMOGLOBIN 13.7 g/dL (11.5-16.0); LYMPHOCYTES # (AUTO) 1.4 10^3/uL (1.0-4.0); LYMPHOCYTES % (AUTO) 24 % (12-44); MEAN CORPUSCULAR HEMOGLOBIN 30 pg (25-34); MEAN CORPUSCULAR HGB CONC 33 g/dL (32-36); MEAN CORPUSCULAR VOLUME 91 fL (80-99); MEAN PLATELET VOLUME 11.5 fL (9.0-12.2); MONOCYTES # (AUTO) 0.3 10^3/uL (0.0-1.0); MONOCYTES % (AUTO) 5 % (0-12); NEUTROPHILS # (AUTO) 3.9 10^3/uL (1.8-7.8); NEUTROPHILS % (AUTO) 69 % (42-75); PLATELET COUNT 224 10^3/uL (130-400); WHITE BLOOD COUNT 5.7 10^3/uL (4.3-11.0)
[2022-03-03] MEDS ORDERED: ONDANSETRON 4 MG/2 ML (SDV) Z0FRAN ONE (14:31)
[2022-03-03 14:47] LABS: FIBRIN DEGRADATION PRODUCTS 1.91 UG/ML (0.00-0.49); PROTHROMBIN TIME PATIENT 13.7 SEC (12.2-14.7)
[2022-03-03 14:51] LABS: ALBUMIN 4.1 GM/DL (3.2-4.5); CALCIUM 9.2 MG/DL (8.5-10.1); CREATININE SERUM 0.77 MG/DL (0.60-1.30); POTASSIUM 4.4 MMOL/L (3.6-5.0); TOTAL PROTEIN 7.1 GM/DL (6.4-8.2)
--- NOTE | 2022-03-03 14:54 | Diagnostic Imaging Report ---
PROCEDURE: CT head wo r/o stroke. TECHNIQUE: Multiple contiguous axial images were obtained through the brain without the use of intravenous contrast. Auto Exposure Controls were utilized during the CT exam to meet ALARA standards for radiation dose reduction. INDICATION: Neurological deficits. Evaluate for stroke. Comparison is made with a prior MRI performed 08/16/2013. FINDINGS: There are prior remote ischemic changes present within the right parietal lobe with associated volume loss. There additionally are chronic microvascular changes present within the deep white matter. There also is a small focus of low attenuation within the medial left occipital lobe. No new territorial loss of harrison-white differentiation evident. There are no findings of acute hemorrhage. There is no mass effect. There is no evidence of hydrocephalus. There is no extra-axial collection. The basilar cisterns are patent. The posterior fossa demonstrates a remote lacunar infarct in the left cerebellum. No acute posterior fossa abnormality is evident. There are atherosclerotic calcifications within the carotid siphons, but no identified asymmetric hyperdense blood vessel. The mastoid air cells are clear. The middle ears are clear. The paranasal sinuses are clear. The orbital contents are unremarkable. There is no acute calvarial abnormality. IMPRESSION: 1. Remote right parietal, left occipital, and left cerebellar infarcts. 2. There are additional chronic microvascular changes present within the deep white matter. 3. No CT evidence of new territorial loss of harrison-white differentiation to suggest acute ischemia. There are no findings of hemorrhage, mass effect, or hydrocephalus. 4. Atherosclerosis without identified asymmetric hyperdense blood vessel. Dictated by: Dictated on workstation # [id number]
--- NOTE | 2022-03-03 14:55 | Diagnostic Imaging Report ---
INDICATION: Stroke. COMPARISON: Exam compared with 08/15/2013. FINDINGS: The heart is enlarged and probably increased from prior. There is background COPD noted; however, some vascular congestion and new interstitial opacities suggestive of mild interstitial edema. No consolidating pneumonia. No pleural fluid. IMPRESSION: Increased heart size, vascular caliber, and likely mild interstitial edema. Dictated by: Dictated on workstation # [id number]
[2022-03-03] MEDS ORDERED: HOLD METFORMIN - RECEIVED CONTRAST 20 ML VIAL IV SCH (15:45)
[2022-03-03] MEDS ORDERED: NS 100 ML (IVPB) BAG IV ONE (15:45)
[2022-03-03] MEDS ORDERED: IOHEXOL 350 MG/ML 100 ML (OMNIPAQUE 350) VIAL IV ONE (15:45)
[2022-03-03 16:29] LABS: BILIRUBIN,URINE NEGATIVE (NEGATIVE); CLARITY,URINE SL CLOUDY; COLOR,URINE YELLOW; GLUCOSE, URINE (UA) NEGATIVE (NEGATIVE); KETONES,URINE TRACE (NEGATIVE); LEUKOCYTE ESTERASE ,URINE NEGATIVE (NEGATIVE); NITRITE,URINE NEGATIVE (NEGATIVE); PH,URINE 5.5 (5-9); PROTEIN,URINE NEGATIVE (NEGATIVE)
[2022-03-03 16:36] LABS: BACTERIA,URINE NEGATIVE /HPF; SQUAMOUS EPITHELIAL CELL,UR 0-2 /HPF; WBC,URINE 0-2 /HPF
--- NOTE | 2022-03-03 17:15 | Diagnostic Imaging Report ---
PROCEDURE: CT angiography of the head and CT angiography of the neck with and without contrast. TECHNIQUE: Contiguous noncontrast images were obtained from the skull base through the vertex. After intravenous contrast administration, helical CT angiography of the neck was performed. Source data was reformatted into 3D MIP projections. Delayed post contrast acquisition was also obtained. Auto Exposure Controls were utilized during the CT exam to meet ALARA standards for radiation dose reduction. INDICATION: Left-sided arm weakness. CT HEAD: Delayed postcontrast enhanced head CT showed some atrophy and periventricular white matter disease. No contrast extravasation or enhancing mass. Periventricular white matter changes are asymmetric, greater right, and most notable in the upper high posterior parietal lobe. The dural venous sinuses patent. CT ANGIOGRAM NECK: Thoracic aortic arch atherosclerotic. Focal aneurysmal dilatation just beyond the takeoff of the left subclavian where there is mural thrombus and caliber is maximal 4.5 cm. Descending aorta beyond that level is ectatic but nonaneurysmal and shows more mild atherosclerotic changes. Soft plaques narrow the lumen of the proximal right subclavian by less than 50%. Cervical vertebral arteries are tortuous and codominant, nonfocal. There is marked tortuosity of the cervical common internal and external carotid arteries. There is dense calcified plaque at the carotid bulbs and bifurcations. Left proximal ICA is stenosed about 60% proximally, the right less than 50%. Stenosis at the takeoff of the left external carotid is likely 60-70%. Beyond that level the ICAs are very tortuous but widely patent. CT ANGIOGRAM HEAD: Left intradural vertebral artery is occluded distally beyond the takeoff of the PICA and AICA and may distally reconstitute just prior to its confluence with the basilar. There is severe stenosis at the proximal basilar. Multifocal calcified basilar atherosclerotic plaques flow within the audio director bilaterally as predominantly, if not exclusively, via wide caliber PCOMs. There are calcified plaques in the ectatic intracranial ICAs without hemodynamically significant intracranial carotid stenosis. The bilateral A1 segments are patent. The right A2 segment is proximally occluded. Beyond that level there was some flow and a small caliber distal right A2 vascularity. Left anterior cerebral appears normal. There are diffuse atherosclerotic changes of the bilateral middle cerebral arterial segments but no MCA branch occlusion or intraluminal thrombus is found. No aneurysm or vascular malformation. IMPRESSION: 1. 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 2. Intradural left vertebral artery occlusions. Severe atherosclerotic changes throughout the diminutive basilar with multifocal high-grade basilar stenoses with TRACK WORKER flow via widely patent dominant PCOMs, bilaterally. 3. Right A2 occlusion with distal reconstitution. This is of uncertain acuity. 4. Intracranial carotid calcified plaques with diffuse carotid ectasia. No carotid stenosis. 5. Severe diffuse middle cerebral arterial atherosclerotic changes present, bilaterally, greater right but no MCA branch occlusion or intraluminal thrombus. Results phoned to the Emergency Room. Dictated by: Dictated on workstation # [id number]
[2022-03-03 18:00] VITALS: BP 198/104
[2022-03-03] MEDS ORDERED: NICOTINE 14 MG (NICODERM) PATCH TD ONE (18:30)
[2022-03-03] MEDS ORDERED: CALCIUM CARBONATE 500 MG (TUMS) TAB.CHEW PO PRN (18:30)
[2022-03-03] MEDS ORDERED: ACETAMINOPHEN 325 MG TABLET PO PRN (18:30)
[2022-03-03] MEDS ORDERED: MILK OF MAGNESIA 400 MG/5 ML 30 ML UDC PO PRN (18:30)
[2022-03-03] MEDS ORDERED: BISACODYL 10 MG SUPP (DULCOLAX) PR PRN (18:30)
[2022-03-03] MEDS ORDERED: NS IV 500 ML 500 ML IV PRN (18:30)
[2022-03-03] MEDS ORDERED: LACTULOSE SYRUP 10GM/15ML (ENULOSE) 30ML UDC PO PRN (18:30)
[2022-03-03] MEDS ORDERED: ONDANSETRON 4 MG/2 ML (SDV) Z0FRAN IV PRN (18:30)
[2022-03-03] MEDS ORDERED: MELATONIN 3 MG TABLET PO PRN (18:30)
[2022-03-03] MEDS ORDERED: polyethylene glycoL POWDER 17 GM (MIRALAX) PACK PO PRN (18:30)
[2022-03-03] MEDS ORDERED: ANTACID SUSP 30 ML UDC (MYLANTA) PO PRN (18:30)
[2022-03-03] MEDS ORDERED: ONDANSETRON 4 MG (ZOFRAN) ORAL DISSOLVE TAB PO PRN (18:30)
[2022-03-03 18:44] LABS: TRIGLYCERIDES 137 MG/DL (<150); VLDL CHOLESTEROL 27 MG/DL (5-40)
[2022-03-03 18:49] LABS: CHOLESTEROL 261 MG/DL (< 200)
[2022-03-03 18:50] LABS: HDL CHOLESTEROL 66 MG/DL (40-60)
[2022-03-03 19:45] VITALS: BP_SYST 193; BP_SYST 203; BP_DIAS 100; BP_DIAS 99
[2022-03-03 20:07] VITALS: BP 182/87
[2022-03-03] MEDS: DOCUSATE SODIUM 100 MG (COLACE) CAP PO SCH (21:00)
[2022-03-03] MEDS: SENNOSIDES 8.6 MG (SENOKOT) TAB PO SCH (21:00)
[2022-03-03] MEDS ORDERED: ENOXAPARIN INJECTION 30 MG/0.3 ML SYR SC SCH (21:00)
[2022-03-03] MEDS: hydrALAZINE (APESOLINE) 20 MG/ML VIAL IV PRN (21:31)
[2022-03-03 21:32] VITALS: BP 203/84
[2022-03-03 22:23] VITALS: BP 172/81
[2022-03-04] VITALS (9 sets, daily range): BP systolic 149–185; BP diastolic 73–94
[2022-03-04] MEDS: POTASSIUM CL 10MEQ/50ML IVPB 50 ML IV SCH (06:00)
[2022-03-04] MEDS: MAGNESIUM 1 GM/100 ML IVPB 100 ML IV SCH (06:00)
[2022-03-04] MEDS: KCL 20 MEQ TAB (K-DUR) PO SCH (06:00)
[2022-03-04 06:14] LABS: BASOPHILS % (AUTO) 0 % (0-10); EOSINOPHILS % (AUTO) 0 % (0-10); HEMATOCRIT 41 % (35-52); HEMOGLOBIN 13.2 g/dL (11.5-16.0); LYMPHOCYTES # (AUTO) 0.3 10^3/uL (1.0-4.0); LYMPHOCYTES % (AUTO) 4 % (12-44); MEAN CORPUSCULAR HEMOGLOBIN 30 pg (25-34); MEAN CORPUSCULAR HGB CONC 33 g/dL (32-36); MEAN CORPUSCULAR VOLUME 91 fL (80-99); MEAN PLATELET VOLUME 11.8 fL (9.0-12.2); MONOCYTES # (AUTO) 0.2 10^3/uL (0.0-1.0); MONOCYTES % (AUTO) 2 % (0-12); NEUTROPHILS % (AUTO) 93 % (42-75); PLATELET COUNT 193 10^3/uL (130-400); WHITE BLOOD COUNT 8.6 10^3/uL (4.3-11.0)
[2022-03-04 06:34] LABS: CREATININE SERUM 0.81 MG/DL (0.60-1.30); MAGNESIUM 2.2 MG/DL (1.6-2.4)
[2022-03-04 06:45] LABS: ELLIPT/OVALOCYTES SLIGHT; LYMPHOCYTES % (MANUAL) 4 %; MONOCYTES % (MANUAL) 2 %; NEUTROPHILS % (MANUAL) 94 %
[2022-03-04] MEDS: DOCUSATE SODIUM 100 MG (COLACE) CAP PO SCH ×2 (08:49→21:54)
[2022-03-04] MEDS: SENNOSIDES 8.6 MG (SENOKOT) TAB PO SCH ×2 (08:50→21:55)
[2022-03-04] MEDS: NICOTINE 14 MG (NICODERM) PATCH TD SCH (08:50)
[2022-03-04] MEDS ORDERED: ASPIRIN 81 MG CHEW (CHILDREN'S ASA) PO SCH (09:00)
--- NOTE | 2022-03-04 09:06 | History & Physical ---
JUSTA LYONS [birth year]: History of Present Illness History of Present Illness Reason for visit/HPI 86 year old female with history of stroke w/ residual left-sided weakness, hypercholesterolemia, HTN, GERD, and arthritis presented to the ED 03/03/22 via EMS for worsening of left-sided weakness upon waking. Her daughter Steph is with her today and reports that she has no function of left arm and leg residual to a stroke 2 years ago. She reports that the reason she was brought in was due to the patient slouching more to the left than normal upon wakening and she had slightly worse mentation than her baseline. Today she is alert to self only. She did have one episode of emesis 03/02/22 in the evening. Upon arrival to the ED labwork including troponin and D-Dimer were drawn and found to be elevated and her NIH assessment score was 12. Patient reports N/V this morning, as well as increased cough for the past week. She denies headache, CP, SOB, abd pain, new weakness/numbness in arms or legs. She currently lives at home by herself and has family members who take turns checking in on her and taking care of her. Date of Admission Mar 03, 2022 at 17:04 Date Seen by a Provider: Mar 04, 2022 Time Seen by a Provider: 09:06 I consulted on this patient on 03/04/22 09:06 Attending Physician Tayla Balbuena MD Admitting Physician Admitting Physician: Kristin Bermudez MD Attending Physician: Kristin Bermudez MD Consult Allergies and Home Medications Allergies Coded Allergies: No Known Drug Allergies (Unverified , 08/15/13) Patient Home Medication List Home Medication List Reviewed: Yes Aspirin (Aspirin) 81 Mg Tab.chew, 81 MG PO DAILY, (Reported) Entered as Reported by: NETTIE PEACE on 03/04/22 3079 Last Action: Reviewed Past Skprmcx-Fwuunq-Undutf Hx Patient Social History Tobacco Use?: Yes Tobacco type used: Cigarettes Smoking Status: Current Everyday Smoker Use of E-Cig and/or Vaping dev: No Substance use?: No Substance type: Caffeine Alcohol Use?: No Pt feels they are or have been: No Immunizations Up To Date Tetanus Booster (TDap): Unknown Hepatitis A: No Hepatitis B: No Seasonal Allergies Seasonal Allergies: No Current Status Advance Directives: No Communicates: Verbally Primary Language: Cypriot Preferred Spoken Language: Cypriot Is interpretation needed?: No Sensory deficits: Vision impairment Implanted or Applied Medical D: None Past Medical History Surgeries: Gallbladder (cholecystectomy) Currently Using CPAP: No Currently Using BIPAP: No Coronary Artery Disease, High Cholesterol, Hypertension Stroke Sexually Transmitted Disease: No HIV/AIDS: No Gastroesophageal Reflux Arthritis Loss of Vision: Denies Hearing Impairment: Denies Depression Blood Disorders: No Adverse Reaction/Blood Tranf: No Family Medical History Family history: Hypertension G8 BROTHER Hypercholesterolemia G8 BROTHER Hypertension (brother) Review of Systems ROS-Unable to Obtain: ROS difficult to obtain given patients mental status Constitutional: No chills, No fever; weakness (chronic) EENTM: No hearing loss, No vision loss Respiratory: cough; No dyspnea on exertion, No orthopnea, No short of breath Genitourinary: No decreased output, No dysuria; incontinence (chronic) Physical Exam Vital Signs Vital Signs - First Documented 03/03/22 14:15 Temp 36.2 Pulse 98 Resp 24 B/P (MAP) 182/133 (149) Pulse Ox 95 O2 Delivery Room Air Capillary Refill : Less Than 3 Seconds Height, Weight, BMI Height: 5'0.00" Weight: 120lbs. 8.0oz. 54.485303ff; 20.44 BMI Method:Estimated General Appearance: No No Apparent Distress; WD/WN, Thin Eyes: Bilateral Eye PERRL, Bilateral Eye EOMI HEENT: PERRL/EOMI, Pharynx Normal, Moist Mucous Membranes Neck: Normal Inspection, Non Tender, Supple Respiratory: Chest Non Tender, Lungs Clear, Normal Breath Sounds, No Accessory Muscle Use, No Respiratory Distress Cardiovascular: Regular Rate, Rhythm, No Edema, No Murmur, Normal Peripheral Pulses Gastrointestinal: Normal Bowel Sounds, No Pulsatile Mass, Non Tender, Soft Rectal: Deferred Back: No CVA Tenderness, No Vertebral Tenderness Extremity: Normal Capillary Refill, Non Tender, No Calf Tenderness, No Pedal Edema Neurologic/Psychiatric: chicken cleaner II-XII Norm as Tested, Disoriented (oriented to self only); No Facial Droop; Motor Weakness (+3/5 strength in right arm and leg. 0/5 strength in left arm and leg.), Sensory Deficit (decreased sensation in left arm and leg) Skin: Normal Color, Warm/Dry Lymphatic: No Adenopathy Assessment/Plan Assessment and Plan CVA w/ left sided deficits (chronic vs. acute) Patient has residual left-sided weakness of arm and leg from stroke 2 years ago Patient was not given TPA in the ER Head CT 03/03/22 showed remote right parietal, left occipital, and left cerebellar infarcts w/ no acute ischemia or masses noted Head CTA on 03/04/22 showed severe cervical & intercranial atherosclerotic disease affecting intradural LCA, CONTENT PRODUCTION SPECIALIST, and MCAA. No carotid stenosis noted. Head MRI 03/04/22 showed [id number]-tx-[id number] infarct of right anterior cerebral artery with hemorrhagic conversion measuring up to 1.6cm in parasagittal superior, anterior right frontal lobe [facility] neurology consulted who advised against surgical intervention at this time. This has been discussed with patient's family who agrees that conservative management is best at this time. Will repeat CT tomorrow. Difficult to assess what symptoms patient is having is chronic versus acute Swallow study today to see if patient is aspirating Consult PT/OT for assessment Upon discharge, patient will likely need placement in a rehab or nursing facility. Monitor for now Elevated Troponin / NSTEMI 03/03/22 1420 Trop 0.155 ; 03/03/22 21:12 Trop 0.184 ; 03/04/22 05:20 Trop 0.136 Patients troponin was elevated on admission and appears to be trending down. Cardiology consulted Paroxysmal atrial fibrillation w/ RVR Diagnosed during hospital stay in 2017 Doesn't take recommended medications other than aspirin 81mg PO QD. Likely the underlying cause of CVA on 03/03/22 Patient has [id number] score of at least 6 making her a candidate for DAPT Consult cardiology for management Hypertension Patient does't take any medications at home other than 81mg aspirin QD. Reports not liking the doctor or taking medicine. Hydralazine 10mg Q4h PRN IV for now. BP this morning okay at 158/73 mmHg. Will let cardiology manage at this time Cough COPD vs. Pneumonia vs. HF CXR on 03/03/22 showed cardiomegally and mild interstital edema with no signs of congestion/infiltrate suggestive of infectious process WBC 8.6. Afebrile Found to be COVID (+) 03/04/22. [address] in isolation and monitor respiratory status closely. Hyperlipidemia Tri: 147, Total chol: 261, LDL 176, VLDL 27, HDL 66 Started on atorvostatin 80mg QD Microscopic Hematuria 2+ RBC on urinalysis 03/03/22 Nitrite & Leuk (-), no culture ordered Monitor for now DVT PPX Enoxaparin 30mg SC QD Smoking history 1/2ppd x 70 years. Not interested in quitting. nicotine 14mg TD patch QD for nicotine replacement Clinical Quality Measures Stroke: Date of last known well: Mar 03, 2022 Symptoms onset unknown: Yes RAZIA AMBRIZ MD 03/04/22 1346: Allergies and Home Medications Allergies Coded Allergies: No Known Drug Allergies (Unverified , 08/15/13) Patient Home Medication List Aspirin (Aspirin) 81 Mg Tab.chew, 81 MG PO DAILY, (Reported) Entered as Reported by: NETTIE PEACE on 03/04/22 8113 Last Action: Reviewed Past Kvnyihg-Pexzzd-Kohmsi Hx Family Medical History Family history: Hypertension G8 BROTHER Hypercholesterolemia G8 BROTHER Assessment/Plan Assessment and Plan Patient is an 86-year-old feel past medical history of atrial fibrillation who presented to the emergency department due to left-sided weakness. She is uncertain how long this has been going on for at least a few days. She has been noncompliant with her medications and has not seen her physicians in at least a couple of years. A CT was done yesterday which showed old infarcts and a CTA was obtained with severe cervical intracranial atherosclerotic disease with a low intradural left vertebral artery occlusion and severe atherosclerotic changes. She also had a right A2 occlusion with distal reconstitution. The ER discussed the case with radiology and he indicated that there is no indication for intervention at this time. She was admitted for further management. This morning she remains flaccid on the left side and complains of a cough. She is vomiting as well. MRI of her brain was ordered and showed small hemorrhagic transformation of 1.6 cm. I discussed the case with her daughter and daughter reaffirms that she is a DNR and they are uncertain if she would want neurosurgical intervention. They plan to discuss this with family. I did call and speak with the stroke neurologist FABRIZIO who states at this time no indication for neurosurgical intervention but that he would repeat CT head in the morning to assure stability. I updated patient's daughter of this and they are in agreement with plan. Admission Diagnosis Admission Status: Inpatient Order (span 2 midnights) Reason for Inpatient Admission: see above Supervisory-Addendum Brief Verification & Attestation Participated in pt care: history, MDM, physical Personally performed: exam, history, MDM, supervision of care Care discussed with: Medical Student Procedures: n/a Results interpretation: Verified all documentation Verification and Attestation of Medical Student E/M Service A medical student performed and documented this service in my presence. I reviewed and verified all information documented by the medical student and made modifications to such information, when appropriate. I personally performed the physical exam and medical decision making. Razia Ambriz, Mar 04, 2022,13:41 JUSTA LYONS Mar 04, 2022 09:06 RAZIA AMBRIZ MD Mar 04, 2022 13:46
--- NOTE | 2022-03-04 09:23 | Consultation-Cardiology ---
HPI-Cardiology Cardiology Consultation: Date of Consultation 03/04/22 Date of Admission 03/03/21 Attending Physician Jeanette Balbuena MD Admitting Physician Admitting Physician: Kristin Bermudez MD Attending Physician: Kristin Bermudez MD Consulting Physician JAYE NUNN JR, MD HPI: Time Seen by a Provider: 17:11 Chief Complaint: REASON FOR CONSULTATION: Acute cerebrovascular accident in the setting of history of paroxysmal atrial fibrillation. At the pleasure of seeing Juliana on the medical/surgical unit at [facility] in [place], [place] today. She has had previous history of strokes with left-sided hemiparesis as well as paroxysmal atrial fibrillation. Since being admitted, she was having a cough and the nurses tested her for COVID which was positive. As such, I conducted my interview with the patient from the doorway. However, due to her altered mental status, she could not provide much history. She is oriented to person only. She states that her lungs hurt but denies chest pain or shortness of breath. Even before she was placed in isolation, other providers have been having difficulty obtaining any meaningful history from the patient due to her altered mental status. According to the medical records, the patient's daughter had her brought to the emergency room because she was slumping towards the left. Earlier today she underwent an MRI that showed an acute/subacute infarct involving the right anterior cerebral artery with areas of hemorrhagic conversion. All of her anticoagulation and antiplatelet agents have been discontinued since this report. Because of the history of paroxysmal atrial fibrillation, a cardiology consultation was requested. Certain portions of this document may have been dictated utilizing voice recognition technology. Inherent to this technology, typographical and grammatical errors may exist. As much as I am diligent to identify and correct these mistakes, some errors may remain in the document. Review of Systems-Cardiology Review of Systems Other comments Review of systems is not obtainable due to the patient's altered mental status. RME-Zbewyt-Qoelya Hx Patient Social History Smoking Status: Current Everyday Smoker 2nd Hand Smoke Exposure: Yes Have you traveled recently?: No Alcohol Use?: No Substance type: Caffeine Pt feels they are or have been: No Tobacco type used: Cigarettes Immunizations Up To Date Tetanus Booster (TDap): Unknown Past Medical History PMH As described under Assessment. Family Medical History Family Medical History: She denies any family h/o CAD or SCD. Family History: Family history: Hypertension G8 BROTHER Hypercholesterolemia G8 BROTHER Allergies and Home Medications Allergies Coded Allergies: No Known Drug Allergies (Unverified , 08/15/13) Patient Home Medication List Home Medication List Reviewed: Yes Aspirin (Aspirin) 81 Mg Tab.chew, 81 MG PO DAILY, (Reported) Entered as Reported by: NETTIE PEACE on 03/04/22 1533 Last Action: Reviewed Discontinued Medications Apixaban (Eliquis) 2.5 Mg Tablet, 2.5 MG PO BID Discontinued Reason: No Longer Taking Prescribed by: JEANETTE BALBUENA on 04/04/16841 Last Action: Discontinued Aspirin (Aspirin) 81 Mg Tab.chew, 81 MG PO DAILY Discontinued Reason: No Longer Taking Prescribed by: JEANETTE BALBUENA on 04/04/16841 Last Action: Discontinued Diltiazem HCl (Diltiazem 24Hr Cd) 240 Mg Cap.er.24h, 240 MG PO DAILY@1800 Discontinued Reason: No Longer Taking Prescribed by: JEANETTE BALBUENA on 04/04/16841 Last Action: Discontinued Famotidine (Pepcid AC) 20 Mg Tablet, 20 MG PO DAILY PRN for INDIGESTION, (Reported) Discontinued Reason: No Longer Taking Entered as Reported by: LISA LIM on 04/01/161524 Last Action: Discontinued Oseltamivir Phosphate (Tamiflu) 75 Mg Cap, 0 EACH PO BID Discontinued Reason: No Longer Taking Prescribed by: JEANETTE BALBUENA on 04/04/16842 Last Action: Discontinued Exam Vital Signs Vital Signs Date Time Temp Pulse Resp B/P (MAP) Pulse Ox O2 Delivery O2 Flow Rate FiO2 03/04/22 16:44 83 03/04/22 16:20 37.4 16 185/94 (124) 94 Room Air Physical Exam Due to the patient's COVID status, I spoke with the patient from the doorway. General: The patient is breathing spontaneously. HENT: Normocephalic. Atraumatic. She is edentulous. Skin: There is no pallor. Neurologic: Awake but drowsy and oriented to person only. Cranial nerves III through XII grossly intact. Left hemiparesis. Psychiatric: Appears cooperative but confused. Labs Laboratory Tests Test 03/03/22 21:12 03/04/22 05:20 03/04/22 11:37 Range/Units Troponin I 0.184 H 0.136 H <0.028 NG/ML White Blood Count 8.6 4.3-11.0 10^3/uL Red Blood Count 4.45 3.80-5.11 10^6/uL Hemoglobin 13.2 11.5-16.0 g/dL Hematocrit 41 35-52 % Mean Corpuscular Volume 91 80-99 fL Mean Corpuscular Hemoglobin 30 25-34 pg Mean Corpuscular Hemoglobin Concent 33 32-36 g/dL Red Cell Distribution Width 14.6 H 10.0-14.5 % Platelet Count 193 130-400 10^3/uL Mean Platelet Volume 11.8 9.0-12.2 fL Immature Granulocyte % (Auto) 1 % Neutrophils (%) (Auto) 93 H 42-75 % Lymphocytes (%) (Auto) 4 L 12-44 % Monocytes (%) (Auto) 2 0-12 % Eosinophils (%) (Auto) 0 0-10 % Basophils (%) (Auto) 0 0-10 % Neutrophils # (Auto) 8.0 H 1.8-7.8 10^3/uL Lymphocytes # (Auto) 0.3 L 1.0-4.0 10^3/uL Monocytes # (Auto) 0.2 0.0-1.0 10^3/uL Eosinophils # (Auto) 0.0 0.0-0.3 10^3/uL Basophils # (Auto) 0.0 0.0-0.1 10^3/uL Immature Granulocyte # (Auto) 0.0 0.0-0.1 10^3/uL Neutrophils % (Manual) 94 % Lymphocytes % (Manual) 4 % Monocytes % (Manual) 2 % Elliptocytes SLIGHT Sodium Level 141 135-145 MMOL/L Potassium Level 4.0 3.6-5.0 MMOL/L Chloride Level 104 98-107 MMOL/L Carbon Dioxide Level 24 21-32 MMOL/L Anion Gap 13 5-14 MMOL/L Blood Urea Nitrogen 15 7-18 MG/DL Creatinine 0.81 0.60-1.30 MG/DL Estimat Glomerular Filtration Rate 70 BUN/Creatinine Ratio 19 Glucose Level 149 H 70-105 MG/DL Calcium Level 9.0 8.5-10.1 MG/DL Magnesium Level 2.2 1.6-2.4 MG/DL Thyroid Stimulating Hormone (TSH) 0.58 0.35-4.94 UIU/ML Influenza Type A (RT-PCR) Not Detected Not Detecte Influenza Type B (RT-PCR) Not Detected Not Detecte SARS-CoV-2 RNA (RT-PCR) Detected H Not Detecte Radiology ECHOCARDIOGRAM (03/04/2022): 1. Left ventricle: The cavity size is normal. There is severe concentric hypertrophy. Systolic function is normal. The estimated ejection fraction is 60- 65%. There were no regional wall motion abnormalities identified. Features are consistent with a pseudonormal left ventricular filling pattern, with concomitant abnormal relaxation and increased filling pressure (grade 2 diastolic dysfunction). 2. Left atrium: The left atrium is severely dilated with a volume index ranging from 48-53 mL/m. 3. Right atrium: The right atrium is moderately dilated with a diameter 25 cm. 4. Aortic valve: There is mild aortic valve sclerosis. 5. Mitral valve: There is mild mitral regurgitation. 6. Tricuspid valve: There is moderate tricuspid regurgitation. 7. Pericardium, extracardiac: A trivial pericardial effusion is identified. 8. Pulmonary arteries: The estimated pulmonary artery systolic pressure is 38 mmHg assuming a right atrial pressure of 5 mmHg. 9. Atrial septum: The intra-atrial septum is aneurysmal bowing to the right. An agitated saline injection was performed and there is no obvious evidence of a right to left shunt. However, transthoracic echocardiograms are suboptimal for detecting intracardiac shunting with a bubble study. ECG Impression ECG Comment Electrocardiogram from the emergency room on 03/03 shows sinus rhythm with left anterior hemiblock and left ventricular hypertrophy with repolarization abnormality. Diagnosis/Problems Diagnosis/Problems (1) Acute cerebrovascular accident Assessment & Plan: She appears to have suffered a probable ischemic stroke now with hemorrhagic conversion. Due to the hemorrhagic conversion, all an ticoagulant and antiplatelet medications are on hold. 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 Her overall prognosis is poor. (2) Hemorrhagic stroke Assessment & Plan: As above, she has had hemorrhagic conversion of her ischemic stroke. According to her nurse, communication was made with the stroke center at [facility] and they did not feel she was a good candidate for advanced treatment. The family is discussing future treatment plans. (3) Paroxysmal atrial fibrillation Assessment & Plan: She had paroxysmal atrial fibrillation in the past and at one point had been on diltiazem and apixaban. Her medication reconciliation for this admission appeared as though she was only taking aspirin. She has been in a sinus rhythm. As above, given the hemorrhagic conversion of her stroke, all blood thinners are now on hold. (4) Elevated troponin Status: Acute Assessment & Plan: She may have suffered a small, type II non-ST elevation myocardial infarction of undetermined etiology. As above, she is not currently a candidate for any antiplatelet or anticoagulant medications. Given her advanced age, previous stroke with significant residual deficits and her DNR status, she is not a candidate for a cardiac catheterization. I would recommend she continue on high-dose statin medication when she is able to swallow medications. I will consider adding carvedilol if she is able to swallow pills at some point. (5) Hypertensive urgency Assessment & Plan: She was having some significant elevation of her blood pressure last evening and required intravenous hydralazine. I would continue the as needed hydralazine for systolic blood pressures above 160 mmHg. (6) Mixed hyperlipidemia Assessment & Plan: Continue high-dose statin medication when she is able to swallow. (7) Cigarette smoker Assessment & Plan: She needs to quit smoking. JAYE NUNN JR, MD Mar 04, 2022 09:23
--- NOTE | 2022-03-04 09:27 | Speech Therapy Progress Note ---
Therapy Progress Note Speech pathology received the consultation for a clinical bedside swallowing evaluation and a cognitive assessment. At this time, the patient is being evaluated by the hospitalist service. ST will reattempt the assessment at a later time. Thank you for the consultation. TONIO KLEIN Mar 04, 2022 09:27
--- NOTE | 2022-03-04 10:42 | Physical Therapy Evaluation ---
PT Evaluation-General Medical Diagnosis Admission Date Mar 03, 2022 at 17:04 Medical Diagnosis: CVA Onset Date: Mar 03, 2022 Therapy Diagnosis Therapy Diagnosis: severe weakness/debility/flaccid left UE/LE Height/Weight Height (Feet): 5 Height (Inches): 0.00 Weight (Pounds): 120 Weight (Ounces): 8.0 Precautions Precautions/Isolations: Fall Prevention, Standard Precautions Referral Physician: Lara Reason for Referral: Evaluation/Treatment Medical History Pertinent Medical History: CAD, CVA, HTN, Smoking Current History EMS secondary to patient woke up and couldn't move her left side. Reviewed History: Yes Social History Home: Single Level Current Living Status: Children Prior Prior Level of Function SCALE: Activities may be completed with or without assistive devices. 4-Qsjqrbneuz-kuypvpq completes the activity by him/herself with no assistance from a helper. 5-Set-up or Clean-up Assistance-helper sets up or cleans up; patient completes activity. [place] assists only prior to or following the activity. 4-Supervision or Touching Assistance-helper provides verbal cues and/or touching/steadying and/or contact guard assistance as patient completes activit y. Assistance may be provided throughout the activity or intermittently. 3-Partial/Moderate Assistance-helper does LESS THAN HALF the effort. [place] lifts, holds or supports trunk or limbs, but provides less than half the effort. 2-Substantial/Maximal Assistance-helper does MORE THAN HALF the effort. [place] lifts or holds trunk or limbs and provides more than half the effort. 5-Gmaniwrzr-emzrnu does ALL the effort. Patient does none of the effort to complete the activity. Or, the assistance of 2 or more helpers is required for the patient to complete the activity. If activity was not attempted, code reason: 7-Patient Refused. 9-Not Applicable-not attempted and the patient did not perform the activity before the current illness, exacerbation or injury. 10-Not Attempted due to Environmental Limitations-(lack of equipment, weather restraints, etc.). 88-Not Attempted due to Medical Conditions or Safety Concerns. Bed Mobility: 3 Transfers (B,C,W/C): 3 Gait: 3 Indoor Mobility (Ambulation): Needed Some Help Stairs: Not Applicalbe Prior Devices Use: Walker per family, patient is inactive PLOF PT Evaluation-Current Subjective Patient and family agree to PT. Objective Patient Orientation: Person, Time, Situation ROM/Strength ROM Lower Extremities bilateral LE WFL Strength Lower Extremities left LE flaccid/right LE 2-/5 grossly Integumentary/Posture Bowel Incontinence: Yes Bladder Incontinence: Yes Posture kyphotic Neuromuscular (Tone, Coordination, Reflexes) severely diminished with all Sensory Vision: Functional Hearing: Functional Transfers Roll Left to Right (QC): 1 (x 2) Sit to Lying (QC): 1 (x 2) Lying to Sitting/Side of Bed(Q: 1 (x 2) Sit to Stand (QC): 88 Chair/Vza-dm-Pzjzf Xfer(QC): 88 patient unable to sit EOB without dependent assist with noted severe left lean Gait Does the Patient Walk?: No and Walking Goal NOT indicated Balance Sitting Static: Poor Sitting Dynamic: Poor Assessment/Needs Patient will benefit from skilled PT to address functional strength and mobility. Patient is currently flaccid left UE and LE and is dependent assist of 2 with all bed mobility with inability to sit EOB. Patient is currently not safe for OOB activity due to POOR sitting balance and left sided flaccid. Rehab Potential: Guarded PT Chcf Goals Chcf Goals PT Desktop Publisher Goals Time Frame: Mar 16, 2022 Roll Left & Right (QC): 2 Sit to Lying (QC): 2 Lying-Sitting on Side/Bed(QC): 2 Sit to Stand (QC): 2 Chair/Jcg-vl-Mrsym Xfer(QC): 2 PT Plan Problem List Problem List: Activity Tolerance, Functional Strength, Safety, Balance, Transfer, Bed Mobility Treatment/Plan Treatment Plan: Continue Plan of Care Treatment Plan: Bed Mobility, Education, Functional Activity Sharad, Functional Strength, Safety, Therapeutic Exercise, Transfers Treatment Duration: Mar 16, 2022 Frequency: 6 times per week Estimated Hrs Per Day: .25 hour per day Patient and/or Family Agrees t: Yes Discharge Recommendations Therapy Discharge Recommendati: Other, See Comments (halfway facility) Time Time In: 952 Time Out: 1004 DATE: Mar 04, 2022 Total Billed Treatment Time: 12 Total Billed Treatment 1 visit EVMod 12 min CAMMIE BEDOYA PT Mar 04, 2022 10:42
--- NOTE | 2022-03-04 11:40 | Occ Therapy Progress Note ---
Therapy Progress Note OT orders received and chart reviewed. Pt on hold this date per Skyla NAVARRO. OT will attempt evaluation next available date. NIKA UMANA OT Mar 04, 2022 11:40
--- NOTE | 2022-03-04 11:51 | Diagnostic Imaging Report ---
PROCEDURE: MR imaging of the brain without contrast. TECHNIQUE: Multiplanar, multisequence MR imaging of the brain was performed without contrast. INDICATION: Stroke. COMPARISON: CTA head and neck from 03/03/2022. FINDINGS: Examination is limited by motion. Confluent restricted water diffusion throughout most of the right anterior cerebral artery distribution. There is a small hemorrhage within the parasagittal anterosuperior left frontal lobe measuring approximately 1.6 x 1.0 cm. There are also small wedge-shaped regions of restricted water diffusion in the right cerebellum measuring up to 1.3 x 0.7 cm. Chronic infarcts in the left cerebellum. Advanced generalized parenchymal volume loss. Advanced T2 hyperintensities in the supratentorial and pontine white matter, compatible with chronic small vessel ischemic change. Normal morphology including the major midline structures, sella, posterior fossa and cerebellopontine angle. No hydrocephalus or extra-axial fluid collections. The orbits are unremarkable. Paranasal sinuses and mastoids are clear. Normal bone marrow signal. IMPRESSION: 1. Urdgg-ab-yqbdeutq infarct involving most of the right anterior cerebral artery distribution. Hemorrhagic conversion of this infarct in the parasagittal superior anterior right frontal lobe measures up to 1.6 cm. No significant mass effect. 2. Avehp-rs-diuivqmt infarcts in the right cerebellum. There are also chronic infarcts in the left cerebellum. 3. Advanced generalized parenchymal volume loss and chronic small vessel ischemic change. Dictated by: Dictated on workstation # [id number]
--- NOTE | 2022-03-04 12:59 | ST Cognitive Linguistic Eval ---
Speech Evaluation-General Medical Diagnosis CVA Onset Date: Mar 03, 2022 Medical History Pertinent Medical History: CAD, CVA, HTN, Smoking Reviewed History: Yes Social History Current Living Status: Children Speech-Plan Treatment Plan Rehab Potential: TONIO Zuniga Mar 04, 2022 12:59
--- NOTE | 2022-03-04 14:38 | ST Dysphagia Evaluation ---
Speech Evaluation-General Medical Diagnosis CVA Onset Date: Mar 03, 2022 Therapy Diagnosis Therapy Diagnosis: Suspected Oropharyngeal Dysphagia Precautions Precautions: Fall, Pressure Ulcer, Aspiration Precautions/Isolations: Aspiration, Pressure Ulcer Referral Referring Physician: Dr. Ambriz Reason for Referral: Evaluation/Treatment Medical History Pertinent Medical History: CAD, CVA, HTN, Smoking Reviewed History: Yes Social History Current Living Status: Children Speech PLF/Current-Dysphagia Prior Level of Function The patient's daughter stated, "She enjoys all the sweets." The patient stated she consumes "anything and everything I want." A clear diet consistency prior to admission was not established. Subjective The patient was seated upright in bed, with her eyes closed but visiting with her family members. The patient is agreeable to participation in the clinical bedside swallowing evaluation. A cognitive assessment was requested for this date, as well. At this time, the patient appears confused and tangential. The cognitive evaluation will be placed on HOLD pending decreased confusion. The patient is pulling thick, copious secretions from the oral cavity and expec torating the contents into a napkin. Per patient's daughter, "She smokes so she always has that cough." A baseline cough is present prior to P.O. attempts. Cognitive Status Patient Orientation: Confused Oral Motor Skills Dentition: Edentalous Ability to Follow Directions: Fair Oral Expression Ability: Moderate Impairment Observation: Excessive Secretions Oral Voice Voice Phonatory-Based Quality: Breathy, Glottal Lemus Voice Pitch: Normal Voice Loudness: Normal Face Facial Symmetry: Symmetrical Oral-Facial Assessment Oral-Facial Dentition: Normal Labial Seal Description: Weak Smile: Reduced ROM Puff Cheeks: Reduced Strength Lingual Protrusion: Normal Lingual ROM: Normal Volitional Dry Swallow: No Voluntary Cough: No Can Clear Throat Volitionally: No Productive Cough: Yes Productive Throat Clear: Yes Dysphagia Evaluation Consistencies Presented: Thin Liquid, [place] Thick Liquid, Pureed The patient requires increased verbal cueing to remove the contents of the teaspoon into the oral cavity. Intermittent oral holding of thin liquid was displayed. The patient displays multiple swallows attempts per small thin liquid bolus (one teaspoon). A delayed onset of the swallowing mechanism is suspected. Laryngeal elevation was present to palpation. The patient displayed an immediate, rigorous cough following trials of thin liquid via teaspoon (x1) and straw. A delayed cough was present following teaspoons of nectar-thick liquids and cup edge drinks. While overt s/s of suspected aspiration were not displayed with puree consistencies, the patient deferred trials following three attempts. Dietary Recommendations: NPO Liquid Recommendations: NPO Recommendations: - The patient should remain strict N.P.O. at this time. - Frequent and excellent oral care to reduce the transfer of oral bacteria to the lungs should aspiration of secretions occur. - Speech pathology to re-assess the patient's oropharyngeal swallowing function on the subsequent treatment date. The clinician discussed the results with the patient and the patient's family members (three), who were present at bedside. All present verbalized comprehension of the discussed material. The clinician attempted to contact the RN on two attempts to provide an update of the information, however, the RN was not reached. Dysphagia Evaluation Summary The patient displayed suspected oropharyngeal dysphagia secondary to decreased oral and lingual coordination, a suspected delayed onset of the pharyngeal swallow and poor airway protection in the presence of bolus material. Speech Short Term Goals Short Term Goals Short Term Goals 1. The patient will tolerate trials of the least restrictive diet consistency wi thout s/s of suspected aspiration. 2. The patient will follow safe swallowing strategies with 80% accuracy and mild clinician verbal cueing. Time Frame-STG: Three Days. Speech Investigator Operator Goals Alf Goals 1. The patient will tolerate the least restrictive diet consistency without s/s of suspected aspiration. Time Frame: Ten Days. Speech-Plan Treatment Plan Speech Therapy Treatment Plan: Continue Plan of Care Treatment Duration: Mar 15, 2022 Frequency: 4 times per week Estimated Hrs Per Day: .25 hour per day Rehab Potential: Guarded Safety Risks/Education Teaching Recipient: Patient, Family Teaching Methods: Discussion Response to Teaching: Reinforcement Needed Education Topics Provided: Results, Recommendations, Plan of Care Time Speech Therapy Time In: 12:03 Speech Therapy Time Out: 12:23 DATE: Mar 04, 2022 Total Billed Time: 20 Billed Treatment Time 1, ANDRAE HECK [facility] Mar 04, 2022 14:38
[2022-03-04] MEDS ORDERED: ASPI-999 PO (15:33)
[2022-03-04] MEDS: hydrALAZINE (APESOLINE) 20 MG/ML VIAL IV PRN (18:20)
[2022-03-04] MEDS ORDERED: ACETAMINOPHEN 650 MG SUPP (TYLENOL) PR PRN (18:45)
[2022-03-04] MEDS: NS IV 1000 ML 1,000 ML IV SCH (18:59)
[2022-03-05] VITALS (7 sets, daily range): BP systolic 110–185; BP diastolic 64–93
[2022-03-05] MEDS: hydrALAZINE (APESOLINE) 20 MG/ML VIAL IV PRN ×2 (02:55→13:07)
[2022-03-05 06:42] LABS: BASOPHILS % (AUTO) 1 % (0-10); EOSINOPHILS % (AUTO) 0 % (0-10); HEMATOCRIT 39 % (35-52); HEMOGLOBIN 12.8 g/dL (11.5-16.0); LYMPHOCYTES # (AUTO) 0.5 10^3/uL (1.0-4.0); LYMPHOCYTES % (AUTO) 6 % (12-44); MEAN CORPUSCULAR HEMOGLOBIN 30 pg (25-34); MEAN CORPUSCULAR HGB CONC 33 g/dL (32-36); MEAN CORPUSCULAR VOLUME 91 fL (80-99); MEAN PLATELET VOLUME 11.5 fL (9.0-12.2); MONOCYTES # (AUTO) 0.4 10^3/uL (0.0-1.0); MONOCYTES % (AUTO) 4 % (0-12); NEUTROPHILS # (AUTO) 7.4 10^3/uL (1.8-7.8); NEUTROPHILS % (AUTO) 88 % (42-75); PLATELET COUNT 176 10^3/uL (130-400); WHITE BLOOD COUNT 8.4 10^3/uL (4.3-11.0)
[2022-03-05] MEDS: NS IV 1000 ML 1,000 ML IV SCH (06:43)
[2022-03-05] MEDS: KCL 20 MEQ TAB (K-DUR) PO SCH (06:50)
[2022-03-05 07:09] LABS: CALCIUM 8.7 MG/DL (8.5-10.1); CREATININE SERUM 0.71 MG/DL (0.60-1.30); POTASSIUM 3.5 MMOL/L (3.6-5.0)
[2022-03-05] MEDS: POTASSIUM CL 10MEQ/50ML IVPB 50 ML IV SCH (07:15)
[2022-03-05] MEDS: MAGNESIUM 1 GM/100 ML IVPB 100 ML IV SCH (07:15)
[2022-03-05] MEDS: SENNOSIDES 8.6 MG (SENOKOT) TAB PO SCH ×2 (07:16→20:15)
[2022-03-05] MEDS: DOCUSATE SODIUM 100 MG (COLACE) CAP PO SCH ×2 (07:16→20:15)
[2022-03-05] MEDS: NICOTINE 14 MG (NICODERM) PATCH TD SCH (08:41)
--- NOTE | 2022-03-05 09:40 | Occupational Therapy Eval ---
OT Evaluation-General/PLF Medical Diagnosis Admission Date Mar 03, 2022 at 17:04 Medical Diagnosis: CVA/COVID + Onset Date: Mar 03, 2022 Therapy Diagnosis Therapy Diagnosis: Left sided weakness, Decreased ADL skills Height/Weight Height (Feet): 5 Height (Inches): 0.00 Weight (Pounds): 120 Weight (Ounces): 8.0 Precautions Precautions/Isolations: Fall Prevention, Standard Precautions Weight Bear Status Weight Bearing Restriction: Weight Bearing/Tolerated Referral Physician: Lara Referral Reason: Activity Tolerance, Self Care, Evaluation/Treatment, Strengthening/ROM Medical History Pertinent Medical History: Arthritis, CAD, CVA, GERD, HTN, Smoking Additional Medical History Pt. had CVA 2 years ago that left her with left sided weakness/flaccidity. Reviewed History: Yes Social History Home: Single Level Current Living Status: Children Entry Into Home: Level Entry ADL-Prior Level of Function SCALE: Activities may be completed with or without assistive devices. 7-Fruqwlekzl-usxekfi completes the activity by him/herself with no assistance from a helper. 5-Set-up or Clean-up Assistance-helper sets up or cleans up; patient completes activity. [place] assists only prior to or following the activity. 4-Supervision or Touching Assistance-helper provides verbal cues and/or touching/steadying and/or contact guard assistance as patient completes activity. Assistance may be provided throughout the activity or intermittently. 3-Partial/Moderate Assistance-helper does LESS THAN HALF the effort. [place] lifts, holds or supports trunk or limbs, but provides less than half the effort. 2-Substantial/Maximal Assistance-helper does MORE THAN HALF the effort. [place] lifts or holds trunk or limbs and provides more than half the effort. 6-Cruuriddz-vbmtbb does ALL the effort. Patient does none of the effort to complete the activity. Or, the assistance of 2 or more helpers is required for the patient to complete the activity. If activity was not attempted, code reason: 7-Patient Refused. 9-Not Applicable-not attempted and the patient did not perform the activity before the current illness, exacerbation or injury. 10-Not Attempted due to Environmental Limitations-(lack of equipment, weather restraints, etc.). 88-Not Attempted due to Medical Conditions or Safety Concerns. ADL PLOF Comments Pt's daughter in room. Pt seems confused as to prior level. OT will ask pt. questions and pt. will answer. However, daughter shakes her head and indicates that this is not accurate. Pt. and daughter indicate that pt. lives alone, but it seems that daughter and possibly other family assist her with all needs. Pt. states that she toilets herself, but daughter mouths the words that "she wets herself." Pt. states that she walks but daughter shakes her head. According to daughter, pt. has not left her house in two years. It is not fully known what pt. is able to do for herself. Self Care: Unknown Functional Cognition: Unknown DME/Equipment Comments Pt. states that she has some canes and a walker, but daughter mouths, "she doesn't walk." Unknown if pt. has wheelchair. Daughter did not elaborate in front of pt. OT Current Status Subjective Pt. does not state a pain level. Mental Status/Objective Patient Orientation: Confused Attachments: IV Current Glasses/Contacts: Yes Upper Extremity ROM Left UE no movement. Poor sensation and light touch response. Right UE- difficult to assess as pt. has difficulty following cues. She is able to bring a washcloth to face and brush to hair, but only "dabs" at both. ADL-Treatment Eating (QC): 88 (Pt. is not allowed to eat at this time due to swallow issues.) Toileting Hygiene (QC): 1 (Pt. has purewick on and has been incontinent of BM.) Other Treatments Pt. in bed with her eyes closed. She talks with OT but requires cues to open her eyes and attend. Daughter present, and answers some questions but is carefu l not to upset her mother. Pt. reports that she is basically independent but daughter shakes her head no. She does not fully answer OT in front of her mother about pt's prior status. It is gathered that pt. suffered CVA two years ago, and has not left her house since. She also has no active movement or very little active movement in left side. She is unable to move her arm, but states that she is when OT asks her to. OT gives her a warm wash cloth to wash her face. She dabs at it so OT washes for her. OT gives her a brush but she only pulls down her hair on her right side. She states that she is brushing her hair. Pt. does not lift head and so OT does this for her and finishes brushing hair to best of ability while at bed level. Completed gentle PROM to left UE. Slight tone noted when passively extending left elbow. No tone in shoulder noted, no pain with movement. CT came in to take pt. to CAT Scan. Education OT Patient Education: Correct positioning, Exercise program, Modified ADL techniques, Progress toward Goal/Update tx plan, Purpose of tx/functional activities, Reviewed precautions, Rehab process Teaching Recipient: Patient, Family Teaching Methods: Demonstration, Discussion Response to Teaching: Unable to Return Demonstration, Reinforcement Needed OT Short Term Goals Short Term Goals Time Frame: Mar 19, 2022 Eatin Oral hygiene: 3 OT Transformation Architect Goals Transformation Architect Goals Time Frame: Mar 26, 2022 Eating (QC): 4 Oral Hygiene (QC): 4 Toileting Hygiene (QC): 3 Additional Goals: 1-Demonstrate ADL Tasks, 2-Verbalize Understanding, 3- ImproveStrength/Sharad 1=Demonstrate adherence to instructed precautions during ADL tasks. 2=Patient will verbalize/demonstrate understanding of assistive devices/modifications for ADL. 3=Patient will improve strength/tolerance for activity to enable patient to perform ADL's. OT Education/Plan Problem List/Assessment Assessment: Decreased Activ Tolerance, Decreased Safety Aware, Decreased UE Strength, Dependent Transfers, Impaired Bed Mobility, Impaired Cognition, Impaired Coordination, Impaired Funct Balance, Impaired I ADL's, Impaired Self- Care Skills, Restricted Funct UE ROM Discharge Recommendations Plan/Recommendations: Continue POC Therapy Discharge Recommendati: 24 Hour Supervision, Post Acute OT Comment Equipment needs and discharge location to be determined. Treatment Plan/Plan of Care Treatment,Training & Education: Yes Patient would benefit from OT for education, treatment and training to promote independence in ADL's, mobility, safety and/or upper extremity function for ADL's. Plan of Care: ADL Retraining, Caregiver Training, Functional Mobility, UE Funct Exercise/Act Treatment Duration: Mar 26, 2022 Frequency: 3 times per week (3-5x/week) Estimated Hrs Per Day: .25 hour per day Agreement: Yes Rehab Potential: Guarded Time Start Time: 08:40 Stop Time: 09:02 DATE: Mar 05, 2022 Total Time Billed (hr/min): 22 Billed Treatment Time 1, JEFFRY MANNING OT Mar 05, 2022 09:40
--- NOTE | 2022-03-05 09:57 | Diagnostic Imaging Report ---
PROCEDURE: CT head without contrast. TECHNIQUE: Multiple contiguous axial images were obtained through the brain without the use of intravenous contrast. Auto Exposure Controls were utilized during the CT exam to meet ALARA standards for radiation dose reduction. INDICATION: 86-year-old female with acute ischemic stroke, followup. COMPARISON: 03/03/2022. MRI brain 03/04/2022. FINDINGS: The midline structures are not displaced. There are senescent changes in the brain with involutional changes and generalized atrophy. There are extensive background chronic areas of microvascular ischemic change. There is now edema with sulcal effacement associated with an evolving stroke in the A2 segment of the right SIGIFREDO. Along the anterior margin of the stroke, there are some petechial blood products. The remainder of the harrison-white differentiation is maintained. Subtle areas of low-attenuation in the right cerebellum correspond with the areas of diffusion restriction in the right cerebellum on the previous MRI. There is no midline shift or mass effect. There are no abnormal extra-axial fluid collections or hemorrhage. The basilar cisterns appear normal. The sinuses, orbits, and mastoid air cells are unremarkable. Bone windows show no calvarial changes. IMPRESSION: 1. Evolving right MCA A2 segment distribution CVA with edema and localized sulcal effacement. 2. There are some petechial blood products seen along the anterior margin of this A2 segment CVA. 3. Small foci of low-attenuation in the right cerebellum correspond with the areas of diffusion restriction seen on MRI. 4. Senescent brain with involutional changes and generalized atrophy with extensive background chronic areas of microvascular ischemic change. Dictated by: Dictated on workstation # [id number]
--- NOTE | 2022-03-05 10:22 | Physical Therapy Progress Note ---
Therapy Progress Note Hold per physician. CAMMIE BEDOYA PT Mar 05, 2022 10:22
[2022-03-05] MEDS ORDERED: NIRMATRELVIR/RITONAVIR (PAXLOVID) TABLET PO SCH ×2 (14:00→15:45)
--- NOTE | 2022-03-05 14:30 | ST Cognitive Linguistic Eval ---
Speech Evaluation-General Medical Diagnosis CVA/COVID + Onset Date: Mar 03, 2022 Therapy Diagnosis Therapy Diagnosis: Impaired Cognition Precautions Precautions: Fall, Pressure Ulcer, Aspiration Precautions/Isolations: Airborne Isolation, Aspiration, Fall Prevention, Pressure Ulcer Referral Referring Physician: Dr. Ambriz Reason for Referral: Evaluation/Treatment Medical History Pertinent Medical History: Arthritis, CAD, CVA, GERD, HTN, Smoking Reviewed History: Yes Social History Current Living Status: Children Speech PLF-Current Status Prior Level of Function The patient's daughter stated the patient lived at home alone, however, others lived "close by." The patient answers the clinician's answers inaccurately, as the patient's daughter mouths accurate responses behind the patient. The clinician is unsure of the patient's baseline cognitive status. Subjective The patient was seated upright in bed, eyes closed but verbally communicating to the clinician upon entrance to her room. The patient is agreeable to participation in the evaluation. The patient's daughter is present at bedside. Language Eval: Auditory Comprehends Simple Yes/No Ques: Functional Indent/Objects Multiple Ramirez: Functional Follows 1-Step Commands: Mild (With consistent verbal cueing and redirection.) Follows General Conversations: Moderate Language Eval: Verbal Language Completes Spontaneous Greeting: Functional Produces Auto, Serial Info: Functional Word Finding: Mild Requests Basic Needs: Mild States Basic Personal Info: Functional Cognitive Patient Orientation The patient was oriented to self. The patient was not oriented to month or year. Objective Cognitive Domain Attention: Moderate Composite Severity Rating: Moderate Objective Oral Motor/Speech Production The patient does not display dysarthria or apraxia of speech. The patient is 100% intelligible in known and unknown contexts. Impression The patient displayed decreased cognition on this date, however, improved in c omparison to the prior date's interactions throughout a clinical bedside swallowing evaluation. As the patient lives alone, the clinician is concerned with discharge home without 24 hour supervision. The clinician will continue to monitor the patient for improvement throughout her admission. Speech Short Term Goals Short Term Goals Short Term Goals 1. The patient will tolerate trials of the least restrictive diet consistency without s/s of suspected aspiration. 2. The patient will follow safe swallowing strategies with 80% accuracy and mild clinician verbal cueing. 3. The patient will display 80% accuracy with orientation information with moderate clinician verbal and visual cueing. Time Frame-STG: Three Days. Speech Aesthetics Instructor Goals [facility] Goals 1. The patient will tolerate the least restrictive diet consistency without s/s of suspected aspiration. 1. The patient will display increased cognitive linguistic skills for safe discharge to the least restrictive environment. Time Frame: Ten Days. Speech-Plan Treatment Plan Speech Therapy Treatment Plan: Continue Plan of Care Treatment Duration: Mar 15, 2022 Frequency: 4 times per week Estimated Hrs Per Day: .25 hour per day Rehab Potential: Guarded Safety Risks/Education Teaching Recipient: Patient, Family Teaching Methods: Discussion Response to Teaching: Reinforcement Needed Education Topics Provided: Results, Recommendations, Plan of Care Discharge Recommendations 24 Hour Supervision Time Speech Therapy Time In: 10:00 Speech Therapy Time Out: 10:08 DATE: Mar 05, 2022 Total Billed Time: 8 Billed Treatment Time 1, TONIO CAMPOS Mar 05, 2022 14:30
--- NOTE | 2022-03-05 14:34 | Progress Note - Hospitalist ---
JUSTA LYONS 03/05/22 2:34pm: Subjective HPI/CC On Admission Date Seen by Provider: Mar 05, 2022 Time Seen by Provider: 13:15 Subjective/Events-last exam Pt. was awake in her chair with her daughter with her when seen this afternoon. She remains oriented to self only. She reports feeling better today than yesterday. She continues to have left sided weakness, but has had improvement in swallowing today and is no longer NPO. CT this morning showed there is stability to her CVA from yesterday. She tested positive for COVID yesterday and continues to have a cough, but is stable on RA and her daughter reports her cough has been better today than yesterdat. Social work is working on finding placement in a group home/ rehab facility for patient which her daughter is agreeable to, but the patient is not as of this time. Patient denies lightheadedness or dizziness, chest pain, palpitations, abd pain, N/V/D. Review of Systems General: No Chills, No Night Sweats, No Fatigue HEENT: No Head Aches Pulmonary: No Dyspnea; Cough; No Pleuritic Chest Pain Cardiovascular: No: Chest Pain, Palpitations, Edema Gastrointestinal: No: Nausea, Vomiting, Diarrhea Genitourinary: No Dysuria; Incontinence (chronic) Neurological: Weakness (left sided); No: Change in speech Objective Exam Vital Signs Vital Signs Date Time Temp Pulse Resp B/P (MAP) Pulse Ox O2 Delivery O2 Flow Rate FiO2 03/05/22 13:12 101 03/05/22 12:51 36.6 20 182/93 (122) 95 Room Air Capillary Refill : Less Than 3 Seconds General Appearance: No Apparent Distress, Thin HEENT: PERRL/EOMI, Moist Mucous Membranes Neck: Non Tender, Supple Respiratory: Lungs Clear, No Accessory Muscle Use, No Respiratory Distress Cardiovascular: No Edema, No Murmur, Normal Peripheral Pulses, Other (frequent PVC's) Gastrointestinal: Normal Bowel Sounds, Non Tender, Soft Extremity: Normal Capillary Refill, Non Tender, No Calf Tenderness Neurologic/Psychiatric: inventory associate II-XII Norm as Tested, Motor Weakness (0/5 strength of left arm and leg. 3/5 strength of right extremities), Sensory Deficit (left sided numbness of extremities) Skin: Normal Color, Warm/Dry Lymphatic: No Adenopathy Results/Procedures Lab Laboratory Tests 03/05/22 06:26 Patient resulted labs reviewed. 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 No carotid stenosis noted. Head MRI 03/04/22 showed [id number] infarct of right anterior cerebral artery with hemorrhagic conversion measuring up to 1.6cm in parasagittal superior, anterior right frontal lobe [facility] neurology consulted who advised against surgical intervention at this time. This has been discussed with patient's family who agrees that conservative management is best at this time. Head CT 03/05/22 showed evolving right MCA A2 segment distribution CVA w/ edema and localized sulcal effacement as well as small amount of petechial clood products seen along anterior margin of this segment. Appears stable at this time. Speech Pathology working on swallowing with pt. as there were concerns of aspiration on 03/04/22 PT/OT for rehab SW is working on finding placement in rehab/group home for patient upon discharge. Elevated Troponin / NSTEMI 03/03/22 1420 Trop 0.155 ; 03/03/22 21:12 Trop 0.184 ; 03/04/22 05:20 Trop 0.136 Patients troponin was elevated on admission and appears to be trending down. Cardiology advised against DAPT due to CVA and recommended high dose statin therapy at this time with atorvostatin 80mg QD PO. Paroxysmal atrial fibrillation w/ RVR Diagnosed during hospital stay in 2017 Doesn't take recommended medications other than aspirin 81mg PO QD. Likely the underlying cause of CVA on 03/03/22 Patient has [id number] score of at least 6 but DAPT held due to recent CVA Patient is having PVC's and intermittent bouts of tachycardia Monitor closely and management per cardiology Hypertension Patient does't take any medications at home other than 81mg aspirin QD. Reports not liking the doctor or taking medicine Continue hydralazine 10mg Q4h PRN IV for now for systolic BP >160mmHg per cardiology recommendations Cough COPD vs. Pneumonia vs. HF CXR on 03/03/22 showed cardiomegally and mild interstital edema with no signs of congestion/infiltrate suggestive of infectious process WBC 8.6. Afebrile Found to be COVID (+) 03/04/22 and placed in isolation and monitor respiratory status closely. COVID Tested positive 03/04/22 after being tested due to CVA and recent cough Pt is a candidate for Paxlovid and will initiate today Patient is not vaccinated Hypokalemia 03/05/22 K+ 3.5 Mild at this time. Continue K+Cl 50ml IV QD & K+Cl 40mEq PO QD. Hyperlipidemia 03/03/22 Tri: 147, Total chol: 261, LDL 176, VLDL 27, HDL 66 Continue atorvostatin 80mg QD Microscopic Hematuria 2+ RBC on urinalysis 03/03/22 Nitrite & Leuk (-), no culture ordered Monitor for now DVT PPX SCDs Enoxaparin held due to CVA Smoking history pd x 70 years. Not interested in quitting. 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 No carotid stenosis noted. Head MRI 03/04/22 showed [id number] infarct of right anterior cerebral artery with hemorrhagic conversion measuring up to 1.6cm in parasagittal superior, anterior right frontal lobe [facility] neurology consulted who advised against surgical intervention at this time. This has been discussed with patient's family who agrees that conservative management is best at this time. Will repeat CT tomorrow. Difficult to assess what symptoms patient is having is chronic versus acute Swallow study today to see if patient is aspirating Consult PT/OT for assessment Upon discharge, patient will likely need placement in a rehab or nursing facility. Monitor for now Elevated Troponin / NSTEMI 03/03/22 1420 Trop 0.155 ; 03/03/22 21:12 Trop 0.184 ; 03/04/22 05:20 Trop 0.136 Patients troponin was elevated on admission and appears to be trending down. Cardiology consulted Paroxysmal atrial fibrillation w/ RVR Diagnosed during hospital stay in 2017 Doesn't take recommended medications other than aspirin 81mg PO QD. Likely the underlying cause of CVA on 03/03/22 Patient has [id number] score of at least 6 making her a candidate for DAPT Consult cardiology for management Hypertension Patient does't take any medications at home other than 81mg aspirin QD. Reports not liking the doctor or taking medicine. Hydralazine 10mg Q4h PRN IV for now. BP this morning okay at 158/73 mmHg. Will let cardiology manage at this time Cough COPD vs. Pneumonia vs. HF CXR on 03/03/22 showed cardiomegally and mild interstital edema with no signs of congestion/infiltrate suggestive of infectious process WBC 8.6. Afebrile Found to be COVID (+) 03/04/22. [address] in isolation and monitor respiratory status closely. Hyperlipidemia Tri: 147, Total chol: 261, LDL 176, VLDL 27, HDL 66 Started on atorvostatin 80mg QD Microscopic Hematuria 2+ RBC on urinalysis 03/03/22 Nitrite & Leuk (-), no culture ordered Monitor for now DVT PPX Enoxaparin 30mg SC QD Smoking history 1/2ppd x 70 years. Not interested in quitting. nicotine 14mg TD patch QD for nicotine replacement Stroke: Date of last known well: Mar 03, 2022 Symptoms onset unknown: Yes RAZIA AMBRIZ MD 03/05/22 2:54pm: Assessment/Plan Assessment and Plan Assess & Plan/Chief Complaint Patient reports doing much better today. She is much more alert and is coughing less. She was seen by speech therapy already and has been cleared to start a pured diet with thickened liquids. We discussed her CT findings this morning. We will continue admission here unless any drastic changes to her neurological status. Discussed with her and her daughter regarding discharge planning for when she is well enough to leave the hospital. Patient is very resistant to any idea of group home placement or rehab. She is insistent upon returning home. Daughter acknowledges that due to the debility from the stroke she will not be able to return home. Social work has been consulted. I also discussed with the patient her COVID status. She is unable to tell me at time of onset but she is unvaccinated and high risk for worsening given her cardiac conditions and likely COPD secondary to years of smoking. At first she was hesitant regarding starting Paxlovid though did consent. EUA status was discussed with the patient. Because of her Paxlovid statin will be held. We will continue PT OT and speech therapy. IRF referral was placed Supervisory-Addendum Brief Verification & Attestation Participated in pt care: history, MDM, physical Personally performed: exam, history, MDM, supervision of care Care discussed with: Medical Student Procedures: n/a Results interpretation: Verified all documentation Verification and Attestation of Medical Student E/M Service A medical student performed and documented this service in my presence. I reviewed and verified all information documented by the medical student and made modifications to such information, when appropriate. I personally performed the physical exam and medical decision making. Razia Ambriz, Mar 05, 2022,14:50 JUSTA LYONS Mar 05, 2022 2:34 pm RAZIA AMBRIZ MD Mar 05, 2022 2:54 pm
--- NOTE | 2022-03-05 14:35 | Speech Therapy Daily Note ---
Speech Daily Progress Note Subjective Date Seen by Provider: Mar 05, 2022 Time Seen by Provider: 10:08 The patient was seated upright in bed, eyes closed and responding verbally to the clinician's questions upon entrance to her room. The patient is agreeable to participation in the assessment stating, "I'll do anything for water." The patient's daughter remains at bedside. The patient has a rigorous, productive cough at bedside. The copious oral secretions from the day prior do appear improved and reduced. Objective The patient consumed teaspoon, cup edge, and straw drink trials of thin liquid and nectar-thick liquid, as well as, teaspoon trials of puree. Overt s/s of s uspected aspiration were not displayed with teaspoon trials of thin liquid, teaspoon trials of nectar-thick liquid, straw trials of nectar-thick liquid, or puree. The patient was challenged with consecutive large straw trials of nectar- thick liquid and overt s/s of suspected aspiration remained not present. The patient displayed an immediate, rigorous cough following straw trials of thin liquid. Recommendations: - PU4 (puree) with mildly thick (nectar-thick) liquids, as tolerated. - Fully upright and alert for P.O. intake. - Small, SINGLE bites and sips, only. - 1:1 feeding supervision and assistance. - Crush medication and place in puree for administration. - Monitor closely for s/s of suspected aspiration with P.O. intake. If demonstrated, place the patient N.P.O. and contact speech pathology. - Speech pathology to monitor diet tolerance daily. The results and recommendations were provided to the patient, the patient's daughter, and the patient's RN immediately following completion. Assessment Assessment Current Status: Fair Progress Treatment Plan Continue Plan of Care Speech Short Term Goals Short Term Goals Short Term Goals 1. The patient will tolerate trials of the least restrictive diet consistency without s/s of suspected aspiration. 2. The patient will follow safe swallowing strategies with 80% accuracy and mild clinician verbal cueing. 3. The patient will display 80% accuracy with orientation information with moderate clinician verbal and visual cueing. Time Frame-STG: Three Days. Speech Science Consultant Goals Assisted Goals 1. The patient will tolerate the least restrictive diet consistency without s/s of suspected aspiration. 1. The patient will display increased cognitive linguistic skills for safe discharge to the least restrictive environment. Time Frame: Ten Days. Speech-Plan Treatment Plan Speech Therapy Treatment Plan: Continue Plan of Care Treatment Duration: Mar 15, 2022 Frequency: 4 times per week Estimated Hrs Per Day: .25 hour per day Rehab Potential: Guarded Safety Risks/Education Teaching Recipient: Patient, Family Teaching Methods: Discussion Response to Teaching: Reinforcement Needed Education Topics Provided: Results, Recommendations, Plan of Care, Safe Swallowing Strategies Time Speech Therapy Time In: 10:08 Speech Therapy Time Out: 10:20 DATE: Mar 05, 2022 Total Billed Time: 12 Billed Treatment Time 1ANDREA ELIZABETH ST Mar 05, 2022 14:35
--- NOTE | 2022-03-05 14:56 | ST Cognitive Linguistic Eval ---
Speech Evaluation-General Medical Diagnosis CVA/COVID + Onset Date: Mar 03, 2022 Therapy Diagnosis Therapy Diagnosis: Impaired Cognition Precautions Precautions: Fall, Pressure Ulcer, Aspiration Precautions/Isolations: Airborne Isolation, Aspiration, Fall Prevention, Pressure Ulcer Referral Referring Physician: Dr. Ambriz Reason for Referral: Evaluation/Treatment Medical History Pertinent Medical History: Arthritis, CAD, CVA, GERD, HTN, Smoking Reviewed History: Yes Social History Current Living Status: Children Speech PLF-Current Status Prior Level of Function The patient's daughter stated the patient lived at home alone, however, others lived "close by." The patient answers the clinician's answers inaccurately, as the patient's daughter shakes her head and mouths accurate responses behind the patient. The clinician is unsure of the patient's baseline cognitive status, however, her level of confusion does not appear safe to be in the absence of 24 hour supervision. Subjective The patient was seated upright in her bed, awake and alert, upon entrance to her room. The patient greeted the clinician appropriately and was agreeable to participation in the cognitive linguistic treatment session. To note, informally the patient is able to participate in the evaluation today in comparison to the prior date where confusion appeared at a higher level. Language Eval: Auditory Comprehends Simple Yes/No Ques: Functional (However, inaccurate regarding home life and abilities.) Indent/Objects Multiple Ramirez: Functional Follows 1-Step Commands: Functional (Verbal redirection was often required.) Follows General Conversations: Moderate Language Eval: Verbal Language Completes Spontaneous Greeting: Functional Produces Auto, Serial Info: Functional Word Finding: Mild Requests Basic Needs: Functional States Basic Personal Info: Functional Cognitive Patient Orientation The patient was not oriented to month, day of week, or year. The patient is oriented to self. Objective Cognitive Domain Attention: Moderate (Consistent redirection was required for completion of tasks. ) Objective Oral Motor/Speech Production Dysarthria or apraxia of speech is not present. The patient is 100% intelligible in known and unknown contexts. Impression The patient continues to display impaired cognition (moderate)/confusion, however, the confusion does appear to have improved from the day prior. The clinician was concerned of the patient's ability to return home independently and does recommend 24 hour supervision at this time. Speech Short Term Goals Short Term Goals Short Term Goals 1. The patient will tolerate trials of the least restrictive diet consistency without s/s of suspected aspiration. 2. The patient will follow safe swallowing strategies with 80% accuracy and mild clinician verbal cueing. 3. The patient will display 80% accuracy with orientation information with moderate clinician verbal and visual cueing. Time Frame-STG: Three Days. Speech Compressor House Operator Goals Compressor House Operator Goals 1. The patient will tolerate the least restrictive diet consistency without s/s of suspected aspiration. 1. The patient will display increased cognitive linguistic skills for safe discharge to the least restrictive environment. Time Frame: Ten Days. Speech-Plan Treatment Plan Speech Therapy Treatment Plan: Continue Plan of Care Treatment Duration: Mar 15, 2022 Frequency: 4 times per week Estimated Hrs Per Day: .25 hour per day Rehab Potential: Guarded Safety Risks/Education Teaching Recipient: Patient, Family Teaching Methods: Discussion Response to Teaching: Reinforcement Needed Education Topics Provided: Results, Recommendations Time Speech Therapy Time In: 10:00 Speech Therapy Time Out: 10:08 DATE: Mar 06, 2022 Total Billed Time: 8 Billed Treatment Time 1, NICO BEAULIEU ELIZ[address]ETH ST Mar 05, 2022 14:56
--- NOTE | 2022-03-05 16:37 | Cardiology Progress Note ---
Progress Note-Cardiology Events since last exam Date Seen by Provider: Mar 05, 2022 Time Seen by Provider: 16:32 Events since last exam I am following her due to a cerebrovascular accident and chronic atrial fibr illation. She is much more awake and alert today and answering questions. She has been cleared by speech therapy to eat and take oral medication. She denies chest discomfort, dyspnea at rest, palpitations, syncope, or ankle edema. Certain portions of this document may have been dictated utilizing voice recognition technology. Inherent to this technology, typographical and grammatical errors may exist. As much as I am diligent to identify and correct these mistakes, some errors may remain in the document. Vitals Last set of Vitals Signs Vital Signs 03/05/22 15:24 Temp 37.6 Pulse 105 Resp 24 B/P (MAP) 165/64 (97) Pulse Ox 94 O2 Delivery Room Air Labs Labs Laboratory Tests 03/05/22 06:26 Exam Vital Signs Vital Signs Date Time Temp Pulse Resp B/P (MAP) Pulse Ox O2 Delivery O2 Flow Rate FiO2 03/05/22 15:24 37.6 105 24 165/64 (97) 94 Room Air Physical Exam Due to the patient's COVID status, I spoke with the patient from the doorway. She was sitting in a chair. General: The patient is breathing spontaneously. HENT: Normocephalic. Atraumatic. Skin: There is no pallor. Neurologic: Oriented to person and she knows she is in a hospital and it is February but she does not know what town we are in or the year. Cranial nerves III through XII grossly intact. Left arm paralysis with contractures. Psychiatric: Appears cooperative. Labs Laboratory Tests Test 03/05/22 06:26 Range/Units White Blood Count 8.4 4.3-11.0 10^3/uL Red Blood Count 4.32 3.80-5.11 10^6/uL Hemoglobin 12.8 11.5-16.0 g/dL Hematocrit 39 35-52 % Mean Corpuscular Volume 91 80-99 fL Mean Corpuscular Hemoglobin 30 25-34 pg Mean Corpuscular Hemoglobin Concent 33 32-36 g/dL Red Cell Distribution Width 14.8 H 10.0-14.5 % Platelet Count 176 130-400 10^3/uL Mean Platelet Volume 11.5 9.0-12.2 fL Immature Granulocyte % (Auto) 1 % Neutrophils (%) (Auto) 88 H 42-75 % Lymphocytes (%) (Auto) 6 L 12-44 % Monocytes (%) (Auto) 4 0-12 % Eosinophils (%) (Auto) 0 0-10 % Basophils (%) (Auto) 1 0-10 % Neutrophils # (Auto) 7.4 1.8-7.8 10^3/uL Lymphocytes # (Auto) 0.5 L 1.0-4.0 10^3/uL Monocytes # (Auto) 0.4 0.0-1.0 10^3/uL Eosinophils # (Auto) 0.0 0.0-0.3 10^3/uL Basophils # (Auto) 0.0 0.0-0.1 10^3/uL Immature Granulocyte # (Auto) 0.1 0.0-0.1 10^3/uL Sodium Level 142 135-145 MMOL/L Potassium Level 3.5 L 3.6-5.0 MMOL/L Chloride Level 109 H 98-107 MMOL/L Carbon Dioxide Level 22 21-32 MMOL/L Anion Gap 11 5-14 MMOL/L Blood Urea Nitrogen 21 H 7-18 MG/DL Creatinine 0.71 0.60-1.30 MG/DL Estimat Glomerular Filtration Rate 82 BUN/Creatinine Ratio 30 Glucose Level 109 H 70-105 MG/DL Calcium Level 8.7 8.5-10.1 MG/DL Magnesium Level 2.0 1.6-2.4 MG/DL Diagnosis/Problems Diagnosis/Problems (1) Acute cerebrovascular accident Assessment & Plan: She appears to have suffered a probable ischemic stroke now with hemorrhagic conversion. Due to the hemorrhagic conversion, all anticoagulant and antiplatelet medications are on hold. 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 Her overall prognosis is poor. If she survives this event, one could consider a Watchman device but this could be arranged as an outpatient after discharge if the patient or family want to pursue this. (2) Hemorrhagic stroke Assessment & Plan: As above, she has had hemorrhagic conversion of her ischemic stroke. According to her nurse, communication was made with the stroke center at [facility] and they did not feel she was a good candidate for advanced treatment. The family is still discussing future treatment plans. (3) Paroxysmal atrial fibrillation Assessment & Plan: She had paroxysmal atrial fibrillation in the past and at one point had been on diltiazem and apixaban. Her medication reconciliation for this admission appeared as though she was only taking aspirin. She has been in a sinus rhythm. As above, given the hemorrhagic conversion of her stroke, all blood thinners are now on hold. Depending upon how she does following this new neurologic insult, we could consider referring her for a Watchman device but this would need careful discussion with the patient and her family. (4) Hypertensive urgency Assessment & Plan: She was having some significant elevation of her blood pre ssure on the day of admission and required intravenous hydralazine. I will start her on diltiazem which should help with both the hypertension and rate control of the atrial fibrillation. (5) Elevated troponin Status: Acute Assessment & Plan: She may have suffered a small, type II non-ST elevation myocardial infarction of undetermined etiology. As above, she is not currently a candidate for any antiplatelet or anticoagulant medications. Given her advanced age, previous stroke with significant residual deficits and her DNR sta tus, she is not a candidate for a cardiac catheterization. I would recommend she continue on high-dose statin medication when she is able to swallow medications. I will consider adding carvedilol if she is able to swallow pills at some point. (6) Wide-complex tachycardia Assessment & Plan: She has been having some wide-complex tachycardia that could be aberrantly conducted atrial fibrillation versus ventricular tachycardia. I will start her on diltiazem which she had been taking in the past. Given her advanced age, recurrent strokes and DNR status, she is not an ideal candidate for additional cardiac testing. (7) Mixed hyperlipidemia Assessment & Plan: Continue high-dose statin medication when she is able to swallow. (8) Cigarette smoker Assessment & Plan: She needs to quit smoking. JAYE NNUN JR, MD Mar 05, 2022 16:37
[2022-03-05] MEDS ORDERED: dilTIAZem120 MG (CARDIZEM CD) CAP PO NR (17:00)
[2022-03-05] MEDS: NIRMATRELVIR/RITONAVIR (PAXLOVID) TABLET PO SCH ×2 (17:05→17:18)
[2022-03-06 03:01] VITALS: BP 125/67
[2022-03-06] MEDS: NIRMATRELVIR/RITONAVIR (PAXLOVID) TABLET PO SCH ×2 (04:56→20:02)
[2022-03-06 05:45] LABS: BASOPHILS % (AUTO) 0 % (0-10); EOSINOPHILS % (AUTO) 0 % (0-10); HEMATOCRIT 39 % (35-52); HEMOGLOBIN 12.6 g/dL (11.5-16.0); LYMPHOCYTES # (AUTO) 0.7 10^3/uL (1.0-4.0); LYMPHOCYTES % (AUTO) 6 % (12-44); MEAN CORPUSCULAR HEMOGLOBIN 30 pg (25-34); MEAN CORPUSCULAR HGB CONC 33 g/dL (32-36); MEAN CORPUSCULAR VOLUME 91 fL (80-99); MEAN PLATELET VOLUME 11.2 fL (9.0-12.2); MONOCYTES # (AUTO) 0.7 10^3/uL (0.0-1.0); MONOCYTES % (AUTO) 7 % (0-12); NEUTROPHILS # (AUTO) 8.6 10^3/uL (1.8-7.8); NEUTROPHILS % (AUTO) 85 % (42-75); PLATELET COUNT 167 10^3/uL (130-400); WHITE BLOOD COUNT 10.1 10^3/uL (4.3-11.0)
[2022-03-06 06:15] LABS: CALCIUM 8.8 MG/DL (8.5-10.1); CREATININE SERUM 0.73 MG/DL (0.60-1.30); MAGNESIUM 2.1 MG/DL (1.6-2.4); POTASSIUM 3.5 MMOL/L (3.6-5.0)
[2022-03-06] MEDS: KCL 20 MEQ TAB (K-DUR) PO SCH (06:57)
[2022-03-06] MEDS: MAGNESIUM 1 GM/100 ML IVPB 100 ML IV SCH (06:57)
[2022-03-06] MEDS: POTASSIUM CL 10MEQ/50ML IVPB 50 ML IV SCH ×4 (06:57→10:56)
[2022-03-06 07:35] VITALS: BP 112/75
[2022-03-06] MEDS: SENNOSIDES 8.6 MG (SENOKOT) TAB PO SCH ×2 (09:22→20:14)
[2022-03-06] MEDS: DOCUSATE SODIUM 100 MG (COLACE) CAP PO SCH ×2 (09:23→20:14)
[2022-03-06] MEDS: NICOTINE 14 MG (NICODERM) PATCH TD SCH (09:26)
[2022-03-06] MEDS: dilTIAZem120 MG (CARDIZEM CD) CAP PO SCH (09:27)
[2022-03-06] MEDS ORDERED: KCL 20 MEQ TAB (K-DUR) PO ONE (09:30)
--- NOTE | 2022-03-06 11:56 | Occ Therapy Progress Note ---
Therapy Progress Note OT attempted to see pt. Spoke with nursing first. Pt. very confused and refusing treatment. Nursing would like OT to hold at this time. [id number] JEFFRY RILEY OT Mar 06, 2022 11:56
[2022-03-06 11:58] VITALS: BP 117/79
--- NOTE | 2022-03-06 12:46 | Physical Therapy Progress Note ---
Therapy Progress Note Received info from OT that patient is on hold per nursing at this time due to increasing confusion and refusing therapy. Will check back tomorrow. JESUSITA ISRAEL PT Mar 06, 2022 12:46
--- NOTE | 2022-03-06 14:43 | Progress Note - Hospitalist ---
JUSTA LYONS 03/06/22 1443: Subjective HPI/CC On Admission Date Seen by Provider: Mar 06, 2022 Time Seen by Provider: 12:45 Subjective/Events-last exam Patient was awake in bed with her daughter Steph at the bedside when seen this afternoon. is requiring 1L supplemental O2 at this time which is a new development since yesterday. Of note, her daughter reports that the pt. has been seeing family members who on this same date several years ago. She continues to have poor appetite but had a BM yesterday. She continues to be oriented to self only. She has not had an more emesis since yesterday. Pt. denies headaches, lightheadeness, dizziness, CP, SOB, abd pain, N/V/D. She does continue to have a productive cough. Review of Systems General: No Chills, No Fatigue HEENT: No Head Aches, No Visual Changes Pulmonary: No Dyspnea; Cough; No Pleuritic Chest Pain Cardiovascular: No: Chest Pain, Palpitations, Edema Gastrointestinal: No: Nausea, Vomiting, Abdominal Pain Genitourinary: No Dysuria Musculoskeletal: other (Pt. denies pain anywhere in body.) Neurological: Weakness (diffuse left sided weakness and numbness), Numbness Objective Exam Vital Signs Vital Signs Date Time Temp Pulse Resp B/P (MAP) Pulse Ox O2 Delivery O2 Flow Rate FiO2 03/06/22 12:41 101 03/06/22 11:58 36.9 18 117/79 (92) 96 1.00 03/06/22 03:01 Room Air Capillary Refill : Less Than 3 Seconds General Appearance: No Apparent Distress, Thin HEENT: PERRL/EOMI, Pharynx Normal, Moist Mucous Membranes Neck: Non Tender, Supple Respiratory: Chest Non Tender, No Accessory Muscle Use, No Respiratory Distress, Wheezing (expiratory, bilaterally) Cardiovascular: No Edema, No Murmur, Normal Peripheral Pulses, Tachycardia (with what sound like frequent PVC's) Gastrointestinal: Normal Bowel Sounds, Non Tender, Soft Extremity: Normal Capillary Refill, Normal Range of Motion, Non Tender, No Calf Tenderness Neurologic/Psychiatric: Disoriented (oriented to self only), Motor Weakness (0/5 muscle strength of arm and legs, 3/5 on her right side), Sensory Deficit (Left extremities) Skin: Normal Color, Warm/Dry Lymphatic: No Adenopathy Results/Procedures Lab Laboratory Tests 03/06/22 05:25 Patient resulted labs reviewed. 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 No carotid stenosis noted. Head MRI 03/04/22 showed [id number] infarct of right anterior cerebral artery with hemorrhagic conversion measuring up to 1.6cm in parasagittal superior, anterior right frontal lobe [facility] neurology consulted who advised against surgical intervention at this time. This has been discussed with patient's family who agrees that conservative management is best at this time. Head CT 03/05/22 showed evolving right MCA A2 segment distribution CVA w/ edema and localized sulcal effacement as well as small amount of petechial clood products seen along anterior margin of this segment. Appears stable at this time. Speech Pathology working on swallowing with pt. as there were concerns of aspiration on 03/04/22 PT/OT for rehab SW is working on finding placement in [place] [facility] for patient upon discharge. Elevated Troponin / NSTEMI 03/03/22 1420 Trop 0.155 ; 03/03/22 21:12 Trop 0.184 ; 03/04/22 05:20 Trop 0.136 Patients troponin was elevated on admission and appears to be trending down. Cardiology advised against DAPT due to CVA and recommended high dose statin therapy at this time with atorvostatin 80mg QD PO. Paroxysmal atrial fibrillation w/ RVR Diagnosed during hospital stay in 2017 Doesn't take recommended medications other than aspirin 81mg PO QD. Likely the underlying cause of CVA on 03/03/22 Patient has [id number] score of at least 6 but DAPT held due to recent CVA Pt. started on diltiazem 120mg PO QD by cardiology for wide complex tachycardia. Pt. is continuing to have episodes of tachycardia. Monitor closely and management per cardiology Hypertension Patient does't take any medications at home other than 81mg aspirin QD. Reports not liking the doctor or taking medicine Continue hydralazine 10mg Q4h PRN IV for now for systolic BP >160mmHg per cardiology recommendations Cough COPD vs. Pneumonia vs. HF CXR on 03/03/22 showed cardiomegally and mild interstital edema with no signs of congestion/infiltrate suggestive of infectious process WBC 8.6. Afebrile Found to be COVID (+) 03/04/22 and placed in isolation and monitor respiratory status closely. COVID Tested positive 03/04/22 after being tested due to CVA and recent cough Day 2 of paxlovid. Pt. is requiring 1L supplemental O2 at this time Patient is not vaccinated Hypokalemia K+ 3.5, unchanged since yesterday Mild at this time. Continue K+Cl 50ml IV QD & K+Cl 40mEq PO QD. Hyperlipidemia 03/03/22 Tri: 147, Total chol: 261, LDL 176, VLDL 27, HDL 66 Continue atorvostatin 80mg QD Microscopic Hematuria 2+ RBC on urinalysis 03/03/22 Nitrite & Leuk (-), no culture ordered Monitor for now DVT PPX SCDs Enoxaparin held due to CVA Smoking history pd x 70 years. Not interested in quitting. 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 No carotid stenosis noted. Head MRI 03/04/22 showed [id number] infarct of right anterior cerebral artery with hemorrhagic conversion measuring up to 1.6cm in parasagittal superio r, anterior right frontal lobe [facility] consulted who advised against surgical intervention at this time. This has been discussed with patient's family who agrees that conservative management is best at this time. Will repeat CT tomorrow. Difficult to assess what symptoms patient is having is chronic versus acute Swallow study today to see if patient is aspirating Consult PT/OT for assessment Upon discharge, patient will likely need placement in a rehab or nursing facility. Monitor for now Elevated Troponin / NSTEMI 03/03/22 1420 Trop 0.155 ; 03/03/22 21:12 Trop 0.184 ; 03/04/22 05:20 Trop 0.136 Patients troponin was elevated on admission and appears to be trending down. Cardiology consulted Paroxysmal atrial fibrillation w/ RVR Diagnosed during hospital stay in 2017 Doesn't take recommended medications other than aspirin 81mg PO QD. Likely the underlying cause of CVA on 03/03/22 Patient has [id number] score of at least 6 making her a candidate for DAPT Consult cardiology for management Hypertension Patient does't take any medications at home other than 81mg aspirin QD. Reports not liking the doctor or taking medicine. Hydralazine 10mg Q4h PRN IV for now. BP this morning okay at 158/73 mmHg. Will let cardiology manage at this time Cough COPD vs. Pneumonia vs. HF CXR on 03/03/22 showed cardiomegally and mild interstital edema with no signs of congestion/infiltrate suggestive of infectious process WBC 8.6. Afebrile Found to be COVID (+) 03/04/[address]. [address] in isolation and monitor respiratory status closely. Hyperlipidemia Tri: 147, Total chol: 261, LDL 176, VLDL 27, HDL 66 Started on atorvostatin 80mg QD Microscopic Hematuria 2+ RBC on urinalysis 03/03/22 Nitrite & Leuk (-), no culture ordered Monitor for now DVT PPX Enoxaparin 30mg SC QD Smoking history 1/2ppd x 70 years. Not interested in quitting. nicotine 14mg TD patch QD for nicotine replacement Stroke: Date of last known well: Mar 03, 2022 Symptoms onset unknown: Yes RAZIA AMBRIZ MD 03/06/22 1503: Assessment/Plan Assessment and Plan Assess & Plan/Chief Complaint Patient less alert today. Daughter states she is not doing as well today and is seeing her late and daughter. We discussed the natural disease process with her stroke and also COVID. We discussed that she may be starting the dying process or just having a rough day. Discussed plan to monitor over the next 24 hours and see how she does. Daughter is very accepting of this. Apparently patient's daughter and both on this date in 2016 as well. Will assess tomorrow for how she is doing. Supervisory-Addendum Brief Verification & Attestation Participated in pt care: history, MDM, physical Personally performed: exam, history, MDM, supervision of care Care discussed with: Medical Student Procedures: n/a Results interpretation: Verified all documentation Verification and Attestation of Medical Student E/M Service A medical student performed and documented this service in my presence. I review ed and verified all information documented by the medical student and made modifications to such information, when appropriate. I personally performed the physical exam and medical decision making. Razia Ambriz, Mar 06, 2022,14:57 JUSTA LYONS Mar 06, 2022 14:43 RAZIA AMBRIZ MD Mar 06, 2022 15:03
--- NOTE | 2022-03-06 15:47 | Cardiology Progress Note ---
Progress Note-Cardiology Events since last exam Date Seen by Provider: Mar 06, 2022 Time Seen by Provider: 15:42 Events since last exam I am following her due to an acute ischemic stroke with hemorrhagic conversion in the setting of atrial fibrillation. When I saw her, she had been sleeping and when she woke up, she told me she just wanted to sleep. She would not answer any of my questions beyond that. Last evening she was having tachycardia and I gave her an extra short acting dose of diltiazem. Certain portions of this document may have been dictated utilizing voice recognition technology. Inherent to this technology, typographical and grammatical errors may exist. As much as I am diligent to identify and correct these mistakes, some errors may remain in the document. Vitals Last set of Vitals Signs Vital Signs 03/06/22 03/06/22 03/06/22 03:01 11:58 12:41 Temp 36.9 Pulse 101 Resp 18 B/P (MAP) 117/79 (92) Pulse Ox 96 O2 Delivery Room Air O2 Flow Rate 1.00 Labs Labs Laboratory Tests 03/06/22 05:25 Exam Vital Signs Vital Signs Date Time Temp Pulse Resp B/P (MAP) Pulse Ox O2 Delivery O2 Flow Rate FiO2 03/06/22 12:41 101 03/06/22 11:58 36.9 18 117/79 (92) 96 1.00 03/06/22 03:01 Room Air Physical Exam Due to the patient's COVID status, I spoke with the patient from the doorway. General: The patient is breathing spontaneously. HENT: Normocephalic. Atraumatic. Skin: There is no pallor. Neurologic: Oriented to person only. Cranial nerves III through XII grossly intact. Left hemiparesis. Psychiatric: Drowsy and did not want to talk. Labs Laboratory Tests Test 03/06/22 05:25 Range/Units White Blood Count 10.1 4.3-11.0 10^3/uL Red Blood Count 4.24 3.80-5.11 10^6/uL Hemoglobin 12.6 11.5-16.0 g/dL Hematocrit 39 35-52 % Mean Corpuscular Volume 91 80-99 fL Mean Corpuscular Hemoglobin 30 25-34 pg Mean Corpuscular Hemoglobin Concent 33 32-36 g/dL Red Cell Distribution Width 14.9 H 10.0-14.5 % Platelet Count 167 130-400 10^3/uL Mean Platelet Volume 11.2 9.0-12.2 fL Immature Granulocyte % (Auto) 1 % Neutrophils (%) (Auto) 85 H 42-75 % Lymphocytes (%) (Auto) 6 L 12-44 % Monocytes (%) (Auto) 7 0-12 % Eosinophils (%) (Auto) 0 0-10 % Basophils (%) (Auto) 0 0-10 % Neutrophils # (Auto) 8.6 H 1.8-7.8 10^3/uL Lymphocytes # (Auto) 0.7 L 1.0-4.0 10^3/uL Monocytes # (Auto) 0.7 0.0-1.0 10^3/uL Eosinophils # (Auto) 0.0 0.0-0.3 10^3/uL Basophils # (Auto) 0.0 0.0-0.1 10^3/uL Immature Granulocyte # (Auto) 0.1 0.0-0.1 10^3/uL Sodium Level 141 135-145 MMOL/L Potassium Level 3.5 L 3.6-5.0 MMOL/L Chloride Level 108 H 98-107 MMOL/L Carbon Dioxide Level 21 21-32 MMOL/L Anion Gap 12 5-14 MMOL/L Blood Urea Nitrogen 25 H 7-18 MG/DL Creatinine 0.73 0.60-1.30 MG/DL Estimat Glomerular Filtration Rate 80 BUN/Creatinine Ratio 34 Glucose Level 124 H 70-105 MG/DL Calcium Level 8.8 8.5-10.1 MG/DL Magnesium Level 2.1 1.6-2.4 MG/DL Diagnosis/Problems Diagnosis/Problems (1) Acute cerebrovascular accident Assessment & Plan: She appears to have suffered a probable ischemic stroke now with hemorrhagic conversion. Due to the hemorrhagic conversion, all anticoagulant and antiplatelet medications are on hold. 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 Her overall prognosis is poor. If she survives this event, one could consider a Watchman device but this could be arranged as an outpatient after discharge if the patient or family want to pursue this. (2) Hemorrhagic stroke Assessment & Plan: As above, she has had hemorrhagic conversion of her ischemic stroke. According to her nurse, communication was made with the stroke center at [facility] and they did not feel she was a good candidate for advanced treatment. The family is still discussing future treatment plans. (3) Paroxysmal atrial fibrillation Assessment & Plan: She had paroxysmal atrial fibrillation in the past and at one point had been on diltiazem and apixaban. Her medication reconciliation for this admission appeared as though she was only taking aspirin. She had been in a sinus rhythm but developed recurrent atrial fibrillation with a rapid ventricular rate. As above, given the hemorrhagic conversion of her stroke, all blood thinners are now on hold. Depending upon how she does following this new neurologic insult, we could consider referring her for a Watchman device but this would need careful discussion with the patient and her family. I have her on long-acting diltiazem for rate control. (4) Hypertensive urgency Assessment & Plan: She was having some significant elevation of her blood pressure on the day of admission and required intravenous hydralazine. I started her on diltiazem which should help with both the hypertension and rate control of the atrial fibrillation. Her blood pressure has improved. (5) Elevated troponin Status: Acute Assessment & Plan: She may have suffered a small, type II non-ST elevation myocardial infarction of undetermined etiology. As above, she is not currently a candidate for any antiplatelet or anticoagulant medications. Given her advanced age, previous stroke with significant residual deficits and her DNR status, she is not a candidate for a cardiac catheterization. I would recommend she continue on high-dose statin medication when she is able to swallow medications. I will consider adding carvedilol if she is able to swallow pills at some point. (6) Wide-complex tachycardia Assessment & Plan: She had been having some wide-complex tachycardia that could be aberrantly conducted atrial fibrillation versus ventricular tachycardia. I started her on diltiazem which she had been taking in the past. Given her advanced age, recurrent strokes and DNR status, she is not an ideal candidate for additional cardiac testing. (7) Mixed hyperlipidemia Assessment & Plan: Continue high-dose statin medication. (8) Cigarette smoker Assessment & Plan: She needs to quit smoking. JAYE NUNN JR, MD Mar 06, 2022 15:47
[2022-03-06 16:00] VITALS: BP 151/79
[2022-03-06 19:40] VITALS: BP 128/84
[2022-03-06] MEDS: ROSUVASTATIN 10 MG (CRESTOR) TABLET PO SCH (20:14)
[2022-03-06] MEDS ORDERED: ROSUVASTATIN 20 MG (CRESTOR) TABLET PO SCH (21:00)
[2022-03-07] VITALS (8 sets, daily range): BP systolic 112–156; BP diastolic 65–83
[2022-03-07 05:58] LABS: POTASSIUM 4.2 MMOL/L (3.6-5.0)
[2022-03-07 05:59] LABS: CALCIUM 8.3 MG/DL (8.5-10.1)
[2022-03-07 06:03] LABS: CREATININE SERUM 0.63 MG/DL (0.60-1.30)
[2022-03-07 06:11] LABS: BASOPHILS % (AUTO) 0 % (0-10); EOSINOPHILS % (AUTO) 0 % (0-10); HEMATOCRIT 37 % (35-52); HEMOGLOBIN 12.1 g/dL (11.5-16.0); LYMPHOCYTES # (AUTO) 0.7 10^3/uL (1.0-4.0); LYMPHOCYTES % (AUTO) 7 % (12-44); MEAN CORPUSCULAR HEMOGLOBIN 30 pg (25-34); MEAN CORPUSCULAR HGB CONC 33 g/dL (32-36); MEAN CORPUSCULAR VOLUME 92 fL (80-99); MEAN PLATELET VOLUME 12.1 fL (9.0-12.2); MONOCYTES # (AUTO) 0.6 10^3/uL (0.0-1.0); MONOCYTES % (AUTO) 6 % (0-12); NEUTROPHILS # (AUTO) 8.5 10^3/uL (1.8-7.8); NEUTROPHILS % (AUTO) 87 % (42-75); PLATELET COUNT 143 10^3/uL (130-400); WHITE BLOOD COUNT 9.8 10^3/uL (4.3-11.0)
[2022-03-07] MEDS: NIRMATRELVIR/RITONAVIR (PAXLOVID) TABLET PO SCH ×2 (06:12→19:00)
[2022-03-07] MEDS: MAGNESIUM 1 GM/100 ML IVPB 100 ML IV SCH (06:23)
[2022-03-07] MEDS: POTASSIUM CL 10MEQ/50ML IVPB 50 ML IV SCH (06:23)
[2022-03-07] MEDS: KCL 20 MEQ TAB (K-DUR) PO SCH (06:24)
[2022-03-07] MEDS: SENNOSIDES 8.6 MG (SENOKOT) TAB PO SCH ×2 (09:52→20:36)
[2022-03-07] MEDS: dilTIAZem120 MG (CARDIZEM CD) CAP PO SCH (09:52)
[2022-03-07] MEDS: DOCUSATE SODIUM 100 MG (COLACE) CAP PO SCH ×2 (09:52→20:36)
[2022-03-07] MEDS: NICOTINE 14 MG (NICODERM) PATCH TD SCH (09:53)
--- NOTE | 2022-03-07 10:36 | Progress Note - Hospitalist ---
JUSTA LYONS 03/07/22 1036: Subjective HPI/CC On Admission Date Seen by Provider: Mar 07, 2022 Time Seen by Provider: 08:15 Subjective/Events-last exam Pt. was asleep in bed when seen this morning but easily awoken. Her mental status today has improved and she is aware she has had a stroke and is oriented x3. Her daughter was not with her this morning. Pt. reports continued cough and weakness of Left arm and leg, but denies CP, palpitations, SOB, abd pain, N/V/D. Her nurse reports she continues to refuse meals and fluid consumption. Pt. has continued to urinate and have BM. Review of Systems General: No Chills, No Fatigue HEENT: No Head Aches Pulmonary: No Dyspnea; Cough Cardiovascular: No: Chest Pain, Palpitations Gastrointestinal: No: Nausea, Vomiting, Abdominal Pain, Diarrhea, Constipation Genitourinary: No Dysuria; Incontinence Musculoskeletal: back pain (mild lower back pain) Neurological: Other (weakness of left arm and leg) Objective Exam Vital Signs Vital Signs Date Time Temp Pulse Resp B/P (MAP) Pulse Ox O2 Delivery O2 Flow Rate FiO2 03/07/22 12:15 36.2 84 18 147/83 (104) 97 Nasal Cannula 1.00 Capillary Refill : Less Than 3 Seconds General Appearance: No Apparent Distress, Thin HEENT: PERRL/EOMI; No Moist Mucous Membranes Neck: Non Tender, Supple Respiratory: Chest Non Tender, No Accessory Muscle Use, No Respiratory Distress, Other (inspiratory and expiratory wheezing with some rhonchi diffusely.) Cardiovascular: No Murmur, Normal Peripheral Pulses, Other (regular rate with PVC's present) Gastrointestinal: Normal Bowel Sounds, Non Tender, Soft Extremity: Normal Capillary Refill, Non Tender, No Calf Tenderness, Other (0/5 strength of left extremities, 3/5 strength of right) Neurologic/Psychiatric: Alert, Oriented x3, Motor Weakness, Sensory Deficit Skin: Normal Color, Warm/Dry Lymphatic: No Adenopathy Results/Procedures Lab Laboratory Tests 03/07/22 05:35 Patient resulted labs reviewed. 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 No carotid stenosis noted. Head MRI 03/04/22 showed [id number] infarct of right anterior cerebral artery with hemorrhagic conversion measuring up to 1.6cm in parasagittal superior, anterior right frontal lobe [facility] neurology consulted who advised against surgical intervention. This has been discussed with patient's family who agrees that conservative management is best at this time. Head CT 03/05/22 showed evolving right MCA A2 segment distribution CVA w/ edema and localized sulcal effacement as well as small amount of petechial clood products seen along anterior margin of this segment. Appears stable at this ti me. Speech therapy working on swallowing with pt. as there were concerns of aspiration on 03/04/22 PT/OT for rehab SW will work on finding placement in rehab/chcf for patient upon discharge. Her recent covid diagnosis will create difficulties with placement. Elevated Troponin / NSTEMI 03/03/22 1420 Trop 0.155 ; 03/03/22 21:12 Trop 0.184 ; 03/04/22 05:20 Trop 0.136 Patients troponin was elevated on admission and appears to be trending down. Cardiology advised against DAPT due to CVA and recommended high dose statin therapy. currently taking rosuvastatin 10mg QD PO. Paroxysmal atrial fibrillation w/ RVR Diagnosed during hospital stay in 2017 Doesn't take recommended medications other than aspirin 81mg PO QD. Likely the underlying cause of CVA on 03/03/22 Patient has [id number] score of at least 6 but DAPT held due to recent CVA Pt. started on diltiazem 120mg PO QD by cardiology for wide complex tachycardia. Pt. is continuing to have episodes of tachycardia intermittently Monitor closely and management per cardiology Hypertension Patient does't take any medications at home other than 81mg aspirin QD. Reports not liking the doctor or taking medicine Continue hydralazine 10mg Q4h PRN IV for now for systolic BP >160mmHg per cardiology recommendations Cough COPD vs. Pneumonia vs. HF CXR on 03/03/22 showed cardiomegally and mild interstital edema with no signs of congestion/infiltrate suggestive of infectious process WBC 8.6. Afebrile Found to be COVID (+) 03/04/22 and placed in isolation and monitor respiratory status closely. COVID Tested positive 03/04/22 after being tested due to CVA and recent cough Day 3 of paxlovid. Pt. is requiring 1L supplemental O2 at this time Lungs sound worse today than yesterday although on same amount of supplemtal O2. Monitor for now Hypokalemia 03/07/22 K+ improved to 4.2 from 3.5 yesterday Continue K+Cl 50ml IV QD & K+Cl 40mEq PO QD. Hyperlipidemia 03/03/22 Tri: 147, Total chol: 261, LDL 176, VLDL 27, HDL 66 Continue atorvostatin 80mg QD Microscopic Hematuria 2+ RBC on urinalysis 03/03/22 Nitrite & Leuk (-), no culture ordered Monitor for now DVT PPX SCDs Enoxaparin held due to CVA Smoking history pd x 70 years. Not interested in quitting. 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 No carotid stenosis noted. Head MRI 03/04/22 showed [id number] infarct of right anterior cerebral artery with hemorrhagic conversion measuring up to 1.6cm in parasagittal superior, anterior right frontal lobe [facility] consulted who advised against surgical intervention at this time. This has been discussed with patient's family who agrees that conservative management is best at this time. Will repeat CT tomorrow. Difficult to assess what symptoms patient is having is chronic versus acute Swallow study today to see if patient is aspirating Consult PT/OT for assessment Upon discharge, patient will likely need placement in a rehab or nursing facility. Monitor for now Elevated Troponin / NSTEMI 03/03/22 1420 Trop 0.155 ; 03/03/22 21:12 Trop 0.184 ; 03/04/22 05:20 Trop 0.136 Patients troponin was elevated on admission and appears to be trending down. Cardiology consulted Paroxysmal atrial fibrillation w/ RVR Diagnosed during hospital stay in 2017 Doesn't take recommended medications other than aspirin 81mg PO QD. Likely the underlying cause of CVA on 03/03/22 Patient has [id number] score of at least 6 making her a candidate for DAPT Consult cardiology for management Hypertension Patient does't take any medications at home other than 81mg aspirin QD. Reports not liking the doctor or taking medicine. Hydralazine 10mg Q4h PRN IV for now. BP this morning okay at 158/73 mmHg. Will let cardiology manage at this time Cough COPD vs. Pneumonia vs. HF CXR on 03/03/22 showed cardiomegally and mild interstital edema with no signs of congestion/infiltrate suggestive of infectious process WBC 8.6. Afebrile Found to be COVID (+) 03/04/[address]. [address] in isolation and monitor respiratory status closely. Hyperlipidemia Tri: 147, Total chol: 261, LDL 176, VLDL 27, HDL 66 Started on atorvostatin 80mg QD Microscopic Hematuria 2+ RBC on urinalysis 03/03/22 Nitrite & Leuk (-), no culture ordered Monitor for now DVT PPX Enoxaparin 30mg SC QD Smoking history 1/2ppd x 70 years. Not interested in quitting. nicotine 14mg TD patch QD for nicotine replacement Stroke: Date of last known well: Mar 03, 2022 Symptoms onset unknown: Yes RAZIA AMBRIZ MD 03/07/22 1452: Assessment/Plan Assessment and Plan Assess & Plan/Chief Complaint Patient much more alert today and alert and oriented x4. I discussed with her my concerns from yesterday. She states that she is ready to start working with physical therapy and is hopeful to get better. PT saw her today. She continues to work with speech therapy. She will very likely need chcf placement which is complicated by her COVID-positive status. She should be out of isolation within 10 days as she was never in the ICU. We will continue supportive care for stroke until placement can be arranged. Cardiology consulted and assisting with atrial fibrillation and tachycardia management. Supervisory-Addendum Brief Verification & Attestation Participated in pt care: history, MDM, physical Personally performed: exam, history, MDM, supervision of care Care discussed with: Medical Student Procedures: n/a Results interpretation: Verified all documentation Verification and Attestation of Medical Student E/M Service A medical student performed and documented this service in my presence. I reviewed and verified all information documented by the medical student and made modifications to such information, when appropriate. I personally performed the physical exam and medical decision making. Razia Ambriz, Mar 07, 2022,14:50 JUSTA LYONS Mar 07, 2022 10:36 RAZIA AMBRIZ MD Mar 07, 2022 14:52
--- NOTE | 2022-03-07 10:38 | Speech Therapy Daily Note ---
Speech Daily Progress Note Subjective Date Seen by Provider: Mar 07, 2022 Time Seen by Provider: 10:06 The patient was lying in bed, open mouth posture and eyes opened, upon entrance to the room by the clinician. The patient greeted the clinician appropriately and was agreeable to participation in the cognitive linguistic and dysphagia treatment program. The patient remains with eyes opened and alert, however, does not make consistent eye contact with the clinician. Objective The clinician consistently attempted to encourage a neutral head/chin position, as the patient remains with chin elevated and head tilted backwards towards the ceiling. Maximum verbal cueing was required by the clinician for the patient to round her lips around the spoon with P.O. trials so the trial would not be "dumped" into the patient's oral cavity. The patient completed trials of thin liquid via teaspoon and single straw drink, nectar-thick liquid via teaspoon and single straw drink, and puree. The patient required the clinician to feed her all trials. Overt s/s of suspected aspiration were not displayed with teaspoons of thin liquid, teaspoons of nectar-thick liquid, straw drinks of nectar-thick liquid, or puree. The patient displayed a rigorous cough with straw drinks of thin liquid. To note, the patient did display a baseline productive cough prior to P.O. trials. The patient is oriented to self, only. The patient did not provide a response to the month or year question of the clinician's. The patient does display improved appropriate responses to conversational exchanges, with reduced verbal redirection to task and topic. The patient remained pleasant and cooperative throughout the treatment. Assessment Assessment Current Status: Fair Progress Treatment Plan Continue Plan of Care Speech Short Term Goals Short Term Goals Short Term Goals 1. The patient will tolerate trials of the least restrictive diet consistency without s/s of suspected aspiration. 2. The patient will follow safe swallowing strategies with 80% accuracy and mild clinician verbal cueing. 3. The patient will display 80% accuracy with orientation information with moderate clinician verbal and visual cueing. Time Frame-STG: Three Days. Speech Long-Term Goals Dicer Machine Operator Goals 1. The patient will tolerate the least restrictive diet consistency without s/s of suspected aspiration. 1. The patient will display increased cognitive linguistic skills for safe discharge to the least restrictive environment. Time Frame: Ten Days. Speech-Plan Treatment Plan Speech Therapy Treatment Plan: Continue Plan of Care Treatment Duration: Mar 15, 2022 Frequency: 4 times per week Estimated Hrs Per Day: .25 hour per day Rehab Potential: Guarded Safety Risks/Education Teaching Recipient: Patient Teaching Methods: Discussion Response to Teaching: Unable to Comprehend, Reinforcement Needed Education Topics Provided: Safe Swallowing Precautions, Orientation Strategies Time Speech Therapy Time In: 10:06 Speech Therapy Time Out: 10:26 DATE: Mar 07, 2022 Total Billed Time: 20 Billed Treatment Time 1, ANDREA, TONIO DALE Mar 07, 2022 10:37
--- NOTE | 2022-03-07 11:20 | Cardiology Progress Note ---
Progress Note-Cardiology Events since last exam Date Seen by Provider: Mar 07, 2022 Time Seen by Provider: 11:16 Events since last exam I am following her due to a stroke in the setting of atrial fibrillation. She is much more awake and alert today. She denies chest discomfort, dyspnea at rest, palpitations, syncope, or ankle edema. Certain portions of this document may have been dictated utilizing voice r ecognition technology. Inherent to this technology, typographical and grammatical errors may exist. As much as I am diligent to identify and correct these mistakes, some errors may remain in the document. Vitals Last set of Vitals Signs Vital Signs 03/07/22 08:28 Temp 36.2 Pulse 103 Resp 18 B/P (MAP) 156/83 (107) Pulse Ox 98 O2 Delivery Nasal Cannula O2 Flow Rate 1.00 Labs Labs Laboratory Tests 03/07/22 05:35 Exam Vital Signs Vital Signs Date Time Temp Pulse Resp B/P (MAP) Pulse Ox O2 Delivery O2 Flow Rate FiO2 03/07/22 08:28 36.2 103 18 156/83 (107) 98 Nasal Cannula 1.00 Physical Exam Due to the patient's COVID status, I spoke with the patient from the doorway. General: The patient is breathing spontaneously. HENT: Normocephalic. Atraumatic. Skin: There is no pallor. Neurologic: Oriented x 3. Cranial nerves III through XII grossly intact. Left hemiparesis. This is chronic. Psychiatric: Appears cooperative. Labs Laboratory Tests Test 03/07/22 05:35 Range/Units White Blood Count 9.8 4.3-11.0 10^3/uL Red Blood Count 4.03 3.80-5.11 10^6/uL Hemoglobin 12.1 11.5-16.0 g/dL Hematocrit 37 35-52 % Mean Corpuscular Volume 92 80-99 fL Mean Corpuscular Hemoglobin 30 25-34 pg Mean Corpuscular Hemoglobin Concent 33 32-36 g/dL Red Cell Distribution Width 14.8 H 10.0-14.5 % Platelet Count 143 130-400 10^3/uL Mean Platelet Volume 12.1 9.0-12.2 fL Immature Granulocyte % (Auto) 0 % Neutrophils (%) (Auto) 87 H 42-75 % Lymphocytes (%) (Auto) 7 L 12-44 % Monocytes (%) (Auto) 6 0-12 % Eosinophils (%) (Auto) 0 0-10 % Basophils (%) (Auto) 0 0-10 % Neutrophils # (Auto) 8.5 H 1.8-7.8 10^3/uL Lymphocytes # (Auto) 0.7 L 1.0-4.0 10^3/uL Monocytes # (Auto) 0.6 0.0-1.0 10^3/uL Eosinophils # (Auto) 0.0 0.0-0.3 10^3/uL Basophils # (Auto) 0.0 0.0-0.1 10^3/uL Immature Granulocyte # (Auto) 0.0 0.0-0.1 10^3/uL Sodium Level 139 135-145 MMOL/L Potassium Level 4.2 3.6-5.0 MMOL/L Chloride Level 108 H 98-107 MMOL/L Carbon Dioxide Level 21 21-32 MMOL/L Anion Gap 10 5-14 MMOL/L Blood Urea Nitrogen 24 H 7-18 MG/DL Creatinine 0.63 0.60-1.30 MG/DL Estimat Glomerular Filtration Rate 86 BUN/Creatinine Ratio 38 Glucose Level 101 70-105 MG/DL Calcium Level 8.3 L 8.5-10.1 MG/DL Magnesium Level 2.0 1.6-2.4 MG/DL Diagnosis/Problems Diagnosis/Problems (1) Acute cerebrovascular accident Assessment & Plan: She appears to have suffered a probable ischemic stroke now with hemorrhagic conversion. Due to the hemorrhagic conversion, all anticoagulant and antiplatelet medications are on hold. 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 Her overall prognosis is poor but today she looks better. If she survives this event, one could consider a Watchman device but this could be arranged as an outpatient after discharge if the patient or family want to pursue this. (2) Hemorrhagic stroke Assessment & Plan: As above, she has had hemorrhagic conversion of her ischemic stroke. According to her nurse, communication was made with the stroke center at [facility] and they did not feel she was a good candidate for advanced treatment. The family is still discussing future treatment plans. (3) Paroxysmal atrial fibrillation Assessment & Plan: She had paroxysmal atrial fibrillation in the past and at o ne point had been on diltiazem and apixaban. Her medication reconciliation for this admission appeared as though she was only taking aspirin. She had been in a sinus rhythm but developed recurrent atrial fibrillation with a rapid ventricular rate. As above, given the hemorrhagic conversion of her stroke, all blood thinners are now on hold. Depending upon how she does following this new neurologic insult, we could consider referring her for a Watchman device but this would need careful discussion with the patient and her family. I have her on long-acting diltiazem for rate control. She is having intermittent tachycardia despite the diltiazem but her blood pressure is on the low side at times. I will start her on metoprolol succinate in addition to the diltiazem. The metoprolol should have less of a tendency to lower her blood pressure as opposed to a higher dose of diltiazem. We will need to watch her heart rates closely to make sure she does not develop bradycardia with dual AV keri blockers. (4) Hypertensive urgency Assessment & Plan: She was having some significant elevation of her blood pressure on the day of admission and required intravenous hydralazine. I started her on diltiazem which has helped with both the hypertension and rate control of the atrial fibrillation. Her blood pressure has improved. (5) Elevated troponin Status: Acute Assessment & Plan: She may have suffered a small, type II non-ST elevation myocardial infarction of undetermined etiology. As above, she is not currently a candidate for any antiplatelet or anticoagulant medications. Given her advanced age, previous stroke with significant residual deficits and her DNR status, she is not a candidate for a cardiac catheterization. I would recommend she continue on high-dose statin medication when she is able to swallow medications. I will consider adding carvedilol if she is able to swallow pills at some point. (6) Wide-complex tachycardia Assessment & Plan: She had been having some wide-complex tachycardia that could be aberrantly conducted atrial fibrillation versus ventricular tachycardia. I started her on diltiazem which she had been taking in the past. I have also started metoprolol succinate as noted above. Given her advanced age, recurrent strokes and DNR status, she is not an ideal candidate for additional cardiac testing. (7) Mixed hyperlipidemia Assessment & Plan: Continue high-dose statin medication. (8) Cigarette smoker Assessment & Plan: She needs to quit smoking. JAYE NUNN JR, MD Mar 07, 2022 11:20
--- NOTE | 2022-03-07 13:17 | Physical Therapy Daily Note ---
PT Daily Note-Current Subjective Patient is alert on this date. Pain Section J - Health Conditions 1. Rarely or not at all 2. Occasionally 3. Frequently 4. Almost constantly 8. Unable to answer Pain Effect on Sleep: 1 Pain Interference with Therapy: 1 Pain Interference w/Day-to-Day: 1 Mental Status Patient Orientation: Person Attachments: IV Transfers SCALE: Activities may be completed with or without assistive devices. 3-[id number]-[id number] completes the activity by him/herself with no assistance from a helper. 5-Set-up or Clean-up Assistance-helper sets up or cleans up; patient completes activity. Granger assists only prior to or following the activity. 4-Supervision or Touching Assistance-helper provides verbal cues and/or touching/steadying and/or contact guard assistance as patient completes a ctivity. Assistance may be provided throughout the activity or intermittently. 3-Partial/Moderate Assistance-helper does LESS THAN HALF the effort. Granger lifts, holds or supports trunk or limbs, but provides less than half the effort. 2-Substantial/Maximal Assistance-helper does MORE THAN HALF the effort. Granger lifts or holds trunk or limbs and provides more than half the effort. 9-Bkelhrncb-oqgbjy does ALL the effort. Patient does none of the effort to complete the activity. Or, the assistance of 2 or more helpers is required for the patient to complete the activity. If activity was not attempted, code reason: 7-Patient Refused. 9-Not Applicable-not attempted and the patient did not perform the activity before the current illness, exacerbation or injury. 10-Not Attempted due to Environmental Limitations-(lack of equipment, weather restraints, etc.). 88-Not Attempted due to Medical Conditions or Safety Concerns. Roll Left & Right (QC): 1 Sit to Lying (QC): 1 Lying to Sitting/Side of Bed(Q: 1 patient unable to assist with bed mobility and required dependent assist to attain and maintain very minimally at EOB. Exercises Supine Ex: Heel Slides, Straight leg raise, Hip abd/add Supine Reps: 12 (PROM bilaterally) Assessment Patient tolerated minimal activity and is returned to supine in bed. Patient very talkative and appreciative of care. PT will continue to address patient mobility and strength needs. PT Bb Shot Packer Goals Mcfp Goals PT Bb Shot Packer Goals Time Frame: Mar 16, 2022 Roll Left & Right (QC): 2 Sit to Lying (QC): 2 Lying-Sitting on Side/Bed(QC): 2 Sit to Stand (QC): 2 Chair/[id number]-Yfngc Xfer(QC): 2 PT Plan Treatment/Plan Treatment Plan: Continue Plan of Care Treatment Plan: Bed Mobility, Education, Functional Activity Sharad, Functional Strength, Safety, Therapeutic Exercise, Transfers Treatment Duration: Mar 16, 2022 Frequency: 6 times per week Estimated Hrs Per Day: .25 hour per day Patient and/or Family Agrees t: Yes Time Time In: 1150 Time Out: 1202 DATE: Mar 07, 2022 Total Billed Treatment Time: 12 Total Billed Treatment 1 visit EX 12 min CAMMIE BEDOYA PT Mar 07, 2022 13:17
--- NOTE | 2022-03-07 14:09 | Occupational Ther Daily Note ---
OT Current Status-Daily Note Subjective Pt alert, lying in bed. Family present in room. Pt agrees to therapy. Mental Status/Objective Patient Orientation: Person Attachments: IV, Oxygen ADL-Treatment Therapy Code Descriptions/Definitions Functional [place] Measure: 0=Not Assessed/NA 4=Minimal Assistance 1=Total Assistance 5=Supervision or Setup 2=Maximal Assistance 6=Modified [place] 3=Moderate Assistance 7=Complete IndependenceSCALE: Activities may be completed with or without assistive devices. 1-Jxhsejtvwr-lhyvmid completes the activity by him/herself with no assistance from a helper. 5-Set-up or Clean-up Assistance-helper sets up or cleans up; patient completes activity. Independence assists only prior to or following the activity. 4-Supervision or Touching Assistance-helper provides verbal cues and/or touching/steadying and/or contact guard assistance as patient completes activity. Assistance may be provided throughout the activity or intermittently. 3-Partial/Moderate Assistance-helper does LESS THAN HALF the effort. Independence lifts, holds or supports trunk or limbs, but provides less than half the effort. 2-Substantial/Maximal Assistance-helper does MORE THAN HALF the effort. Independence lifts or holds trunk or limbs and provides more than half the effort. 8-Qsbtjzxsh-eooqpy does ALL the effort. Patient does none of the effort to complete the activity. Or, the assistance of 2 or more helpers is required for the patient to complete the activity. If activity was not attempted, code reason: 7-Patient Refused. 9-Not Applicable-not attempted and the patient did not perform the activity before the current illness, exacerbation or injury. 10-Not Attempted due to Environmental Limitations-(lack of equipment, weather restraints, etc.). 88-Not Attempted due to Medical Conditions or Safety Concerns. Other Treatment PROM to L UE through all planes. Pt's L UE flaccid, pt states that she is moving L UE though no muscle contraction/movement noted. Neck pillow fashioned to position pt's head in forward flexion. Pt unable to turn head L to midline then unable to hold head in upright midline position when placed without positioning devices. After therapy, pt lying in bed with call light/phone in reach. All needs met in room. OT Short Term Goals Short Term Goals Time Frame: Mar 19, 2022 Eatin Oral hygiene: 3 OT Detention Goals Detention Goals Time Frame: Mar 26, 2022 Eating (QC): 4 Oral Hygiene (QC): 4 Toileting Hygiene (QC): 3 Additional Goals: 1-Demonstrate ADL Tasks, 2-Verbalize Understanding, 3- ImproveStrength/Sharad 1=Demonstrate adherence to instructed precautions during ADL tasks. 2=Patient will verbalize/demonstrate understanding of assistive devices/modifications for ADL. 3=Patient will improve strength/tolerance for activity to enable patient to perform ADL's. OT Education/Plan Problem List/Assessment Assessment: Decreased Activ Tolerance, Decreased Safety Aware, Decreased UE Strength, Impaired Cognition, Impaired Coordination, Impaired Funct Balance, Impaired Self-Care Skills, Restricted Funct UE ROM Discharge Recommendations Plan/Recommendations: Continue POC Treatment Plan/Plan of Care Patient would benefit from OT for education, treatment and training to promote independence in ADL's, mobility, safety and/or upper extremity function for ADL's. Plan of Care: ADL Retraining, Caregiver Training, Functional Mobility, UE Funct Exercise/Act Treatment Duration: Mar 26, 2022 Frequency: 3 times per week (3-5x/week) Estimated Hrs Per Day: .25 hour per day Agreement: Yes Rehab Potential: Guarded Time Start Time: 13:10 Stop Time: 13:28 DATE: Mar 07, 2022 Total Time Billed (hr/min): 18 Billed Treatment Time 1 visit-EX 1 (18 min) SAMUEL MORSE Mar 07, 2022 14:08
[2022-03-07] MEDS: ROSUVASTATIN 10 MG (CRESTOR) TABLET PO SCH (20:36)
[2022-03-08 03:46] VITALS: BP 116/70
[2022-03-08 06:03] LABS: POTASSIUM 4.6 MMOL/L (3.6-5.0)
[2022-03-08 06:04] LABS: CALCIUM 9.1 MG/DL (8.5-10.1)
[2022-03-08 06:08] LABS: CREATININE SERUM 1.09 MG/DL (0.60-1.30)
[2022-03-08 06:10] LABS: MAGNESIUM 1.9 MG/DL (1.6-2.4)
[2022-03-08] MEDS: NIRMATRELVIR/RITONAVIR (PAXLOVID) TABLET PO SCH ×2 (06:18→18:33)
[2022-03-08 06:31] LABS: BASOPHILS % (AUTO) 0 % (0-10); EOSINOPHILS % (AUTO) 0 % (0-10); HEMOGLOBIN 12.9 g/dL (11.5-16.0); MEAN CORPUSCULAR VOLUME 92 fL (80-99)
[2022-03-08 06:33] LABS: HEMATOCRIT 40 % (35-52); LYMPHOCYTES # (AUTO) 0.5 10^3/uL (1.0-4.0); LYMPHOCYTES % (AUTO) 5 % (12-44); MEAN CORPUSCULAR HEMOGLOBIN 30 pg (25-34); MEAN CORPUSCULAR HGB CONC 32 g/dL (32-36); MEAN PLATELET VOLUME 11.7 fL (9.0-12.2); MONOCYTES # (AUTO) 0.5 10^3/uL (0.0-1.0); MONOCYTES % (AUTO) 5 % (0-12); NEUTROPHILS # (AUTO) 8.6 10^3/uL (1.8-7.8); NEUTROPHILS % (AUTO) 89 % (42-75); PLATELET COUNT 141 10^3/uL (130-400); WHITE BLOOD COUNT 9.7 10^3/uL (4.3-11.0)
[2022-03-08] MEDS: KCL 20 MEQ TAB (K-DUR) PO SCH (06:38)
[2022-03-08] MEDS: MAGNESIUM 1 GM/100 ML IVPB 100 ML IV SCH (06:38)
[2022-03-08] MEDS: POTASSIUM CL 10MEQ/50ML IVPB 50 ML IV SCH (06:38)
[2022-03-08 08:11] VITALS: BP 153/83
--- NOTE | 2022-03-08 08:38 | Cardiology Progress Note ---
Progress Note-Cardiology Events since last exam Date Seen by Provider: Mar 08, 2022 Time Seen by Provider: 08:37 Events since last exam We are following her due to paroxysmal atrial fibrillation in the setting of an ischemic stroke with hemorrhagic conversion. On 03/07 she was completely awake and talking. This morning she is sleeping and not waking up. Her daughter is at the bedside and said the patient is not answering any questions. I am not able to obtain any history from the patient today due to her altered mental status. Certain portions of this document may have been dictated utilizing voice re cognition technology. Inherent to this technology, typographical and grammatical errors may exist. As much as I am diligent to identify and correct these mistakes, some errors may remain in the document. Vitals Last set of Vitals Signs Vital Signs 03/08/22 11:53 Temp 36.8 Pulse 90 Resp 18 B/P (MAP) 135/84 (101) Pulse Ox 96 O2 Delivery Nasal Cannula O2 Flow Rate 1.00 Labs Labs Laboratory Tests 03/08/22 06:25 Exam Vital Signs Vital Signs Date Time Temp Pulse Resp B/P (MAP) Pulse Ox O2 Delivery O2 Flow Rate FiO2 03/08/22 11:53 36.8 90 18 135/84 (101) 96 Nasal Cannula 1.00 Physical Exam Due to the patient's COVID status, I spoke with the patient from the doorway. General: The patient is breathing spontaneously. HENT: Normocephalic. Atraumatic. Skin: There is no pallor. Neurologic: Essentially unresponsive. Cranial nerves III through XII grossly intact. Psychiatric: Essentially unresponsive. Labs Laboratory Tests Test 03/08/22 06:25 Range/Units White Blood Count 9.7 4.3-11.0 10^3/uL Red Blood Count 4.32 3.80-5.11 10^6/uL Hemoglobin 12.9 11.5-16.0 g/dL Hematocrit 40 35-52 % Mean Corpuscular Volume 92 80-99 fL Mean Corpuscular Hemoglobin 30 25-34 pg Mean Corpuscular Hemoglobin Concent 32 32-36 g/dL Red Cell Distribution Width 14.7 H 10.0-14.5 % Platelet Count 141 130-400 10^3/uL Mean Platelet Volume 11.7 9.0-12.2 fL Immature Granulocyte % (Auto) 1 % Neutrophils (%) (Auto) 89 H 42-75 % Lymphocytes (%) (Auto) 5 L 12-44 % Monocytes (%) (Auto) 5 0-12 % Eosinophils (%) (Auto) 0 0-10 % Basophils (%) (Auto) 0 0-10 % Neutrophils # (Auto) 8.6 H 1.8-7.8 10^3/uL Lymphocytes # (Auto) 0.5 L 1.0-4.0 10^3/uL Monocytes # (Auto) 0.5 0.0-1.0 10^3/uL Eosinophils # (Auto) 0.0 0.0-0.3 10^3/uL Basophils # (Auto) 0.0 0.0-0.1 10^3/uL Immature Granulocyte # (Auto) 0.1 0.0-0.1 10^3/uL Percent Immature Platelet Fraction 6.0 0.0-7.6 % Sodium Level 140 135-145 MMOL/L Potassium Level 4.6 3.6-5.0 MMOL/L Chloride Level 105 98-107 MMOL/L Carbon Dioxide Level 25 21-32 MMOL/L Anion Gap 10 5-14 MMOL/L Blood Urea Nitrogen 18 7-18 MG/DL Creatinine 1.09 0.60-1.30 MG/DL Estimat Glomerular Filtration Rate 49 BUN/Creatinine Ratio 17 Glucose Level 95 70-105 MG/DL Calcium Level 9.1 8.5-10.1 MG/DL Magnesium Level 1.9 1.6-2.4 MG/DL Diagnosis/Problems Diagnosis/Problems (1) Acute cerebrovascular accident Assessment & Plan: She appears to have suffered a probable ischemic stroke now with hemorrhagic conversion. Due to the hemorrhagic conversion, all anticoagul ant and antiplatelet medications are on hold. 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 Her overall prognosis is poor but her mental status has waxed and waned. If she survives this event, one could consider a Watchman device but this could be arranged as an outpatient after discharge if the patient or family want to pursue this. (2) Hemorrhagic stroke Assessment & Plan: As above, she has had hemorrhagic conversion of her ischemic stroke. All anticoagulant and antiplatelet agents have been discontinued. (3) Paroxysmal atrial fibrillation Assessment & Plan: She had paroxysmal atrial fibrillation in the past and at one point had been on diltiazem and apixaban. Her medication reconciliation for this admission appeared as though she was only taking aspirin. She had been in a sinus rhythm but developed recurrent atrial fibrillation with a rapid ventricular rate. As above, given the hemorrhagic conversion of her stroke, all blood thinners are now on hold. Depending upon how she does following this new neurologic insult, we could consider referring her for a Watchman device but this would need careful discussion with the patient and her family. I have her on long-acting diltiazem for rate control. She is having intermittent tach ycardia despite the diltiazem but her blood pressure is on the low side at times. I started her on metoprolol succinate in addition to the diltiazem. Due to ongoing, recurrent tachycardia, I will increase the dose of metoprolol. The metoprolol should have less of a tendency to lower her blood pressure as opposed to a higher dose of diltiazem. We will need to watch her heart rates closely to make sure she does not develop bradycardia with dual AV keri blockers. (4) Hypertensive urgency Assessment & Plan: She was having some significant elevation of her blood pressure on the day of admission and required intravenous hydralazine. I started her on diltiazem which has helped with both the hypertension and rate control of the atrial fibrillation. Her blood pressure has improved. (5) Elevated troponin Status: Acute Assessment & Plan: She may have suffered a small, type II non-ST elevation myocardial infarction of undetermined etiology. As above, she is not currently a candidate for any antiplatelet or anticoagulant medications. Given her advanced age, previous stroke with significant residual deficits and her DNR status, she is not a candidate for a cardiac catheterization. I would recommend she continue on high-dose statin medication when she is able to swallow medi cations. I will consider adding carvedilol if she is able to swallow pills at some point. (6) Wide-complex tachycardia Assessment & Plan: She had been having some wide-complex tachycardia that could be aberrantly conducted atrial fibrillation versus ventricular tachycardia. I started her on diltiazem which she had been taking in the past. I have also started metoprolol succinate as noted above. Given her advanced age, recurrent strokes and DNR status, she is not an ideal candidate for additional cardiac testing. (7) Mixed hyperlipidemia Assessment & Plan: Continue high-dose statin medication. (8) Cigarette smoker Assessment & Plan: She needs to quit smoking. JAYE NUNN JR, MD Mar 08, 2022 08:38
--- NOTE | 2022-03-08 09:14 | Progress Note - Hospitalist ---
JUSTA LYONS 03/08/22 0914: Subjective HPI/CC On Admission Date Seen by Provider: Mar 08, 2022 Time Seen by Provider: 08:50 Subjective/Events-last exam Pt. was asleep in bed but able to be awoken. She is oriented x3 but much more fatigued today than yesterday. Her daughter was with her bedside and agrees that she looks worse today compared to yesterday. She is still unable to move her left arm and leg although says she can. She continues to have a productive cough and be dependent upon 2L supplemental O2. She refused all meals yesterday and largely refused fluids as well. She did not have a BM yesterday. She denies headache, dizziness, CP, palpitations, SOB, abd pain, N/V/D. Review of Systems General: No Chills; Fatigue HEENT: No Head Aches, No Visual Changes Pulmonary: No Dyspnea; Cough; No Pleuritic Chest Pain Cardiovascular: No: Chest Pain, Palpitations, Edema Gastrointestinal: No: Nausea, Vomiting, Abdominal Pain, Diarrhea Genitourinary: No Dysuria, No Hematuria Neurological: Weakness Objective Exam Vital Signs Vital Signs Date Time Temp Pulse Resp B/P (MAP) Pulse Ox O2 Delivery O2 Flow Rate FiO2 03/08/22 11:53 36.8 90 18 135/84 (101) 96 Nasal Cannula 1.00 Capillary Refill : Less Than 3 Seconds General Appearance: No Apparent Distress, Thin, Other (patient appears much more fatigued today and was in and out of sleep while I was in her room.) HEENT: PERRL/EOMI; No Moist Mucous Membranes Neck: Non Tender, Supple Respiratory: Chest Non Tender, Lungs Clear, Normal Breath Sounds, No Accessory Muscle Use, No Respiratory Distress Cardiovascular: No Murmur, Normal Peripheral Pulses, Irregularly Irregular, Tachycardia Gastrointestinal: Normal Bowel Sounds, Non Tender, Soft Extremity: Normal Capillary Refill, Normal Range of Motion, Non Tender, No Calf Tenderness Neurologic/Psychiatric: Oriented x3, Motor Weakness, Sensory Deficit Skin: Normal Color, Warm/Dry Lymphatic: No Adenopathy Results/Procedures Lab Laboratory Tests 03/08/22 06:25 Patient resulted labs reviewed. 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 No carotid stenosis noted. Head MRI 03/04/22 showed [id number] infarct of right anterior cerebral artery with hemorrhagic conversion measuring up to 1.6cm in parasagittal superior, anterior right frontal lobe [facility] neurology consulted who advised against surgical intervention. This has been discussed with patient's family who agrees that conservative management is best at this time. Head CT 03/05/22 showed evolving right MCA A2 segment distribution CVA w/ edema and localized sulcal effacement as well as small amount of petechial clood products seen along anterior margin of this segment. Appears stable at this time. Speech therapy working on swallowing with pt. as there were concerns of aspiration on 03/04/22 PT/OT for rehab SW will work on finding placement in rehab/fpc for patient upon discharge. Her recent covid diagnosis will create difficulties with placement. 03/08 patients family expressed concerns about little food intake and brought up idea of PEG tube. Will try ensure milkshakes first, patient is agreeable to try. Elevated Troponin / NSTEMI 03/03/22 1420 Trop 0.155 ; 03/03/22 21:12 Trop 0.184 ; 03/04/22 05:20 Trop 0.136 Patients troponin was elevated on admission and appears to be trending down. Cardiology advised against DAPT due to CVA and recommended high dose statin therapy. currently taking rosuvastatin 10mg QD PO. Paroxysmal atrial fibrillation w/ RVR Diagnosed during hospital stay in 2017 Doesn't take recommended medications at home other than aspirin 81mg PO QD. Likely the underlying cause of CVA on 03/03/22 Patient has [id number] score of at least 6 but DAPT held due to recent CVA Pt. started on diltiazem 120mg PO QD and Metoprolol 50mg PO QD. Monitor closely and management per cardiology Acute Kidney Injury Cr today of 1.09 which is increased from 0.63 yesterday. Will start IV normal saline at 75ml/hr today Hypertension Patient does't take any medications at home other than 81mg aspirin QD. Repo rts not liking the doctor or taking medicine Continue hydralazine 10mg Q4h PRN IV for now for systolic BP >160mmHg per cardiology recommendations Cough COPD vs. Pneumonia vs. HF CXR on 03/03/22 showed cardiomegally and mild interstital edema with no signs of congestion/infiltrate suggestive of infectious process WBC 8.6. Afebrile Found to be COVID (+) 03/04/22 and placed in isolation and monitor respiratory status closely. COVID Tested positive 03/04/22 after being tested due to CVA and recent cough Day 4 of paxlovid. Pt. is requiring 1L supplemental O2 at this time Lungs sound improved today. Continues to require supplemental oxygen. Hypokalemia 03/08/22 K+ 4.6, appears resolved at this time. Continue K+Cl 50ml IV QD & K+Cl 40mEq PO QD. Hyperlipidemia 03/03/22 Tri: 147, Total chol: 261, LDL 176, VLDL 27, HDL 66 Continue Rosuvastatin 10mg QD Microscopic Hematuria 2+ RBC on urinalysis 03/03/22 Nitrite & Leuk (-), no culture ordered Monitor for now DVT PPX SCDs Enoxaparin held due to CVA Smoking history 2ppd x 70 years. Not interested in quitting. 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 No carotid stenosis noted. Head MRI 03/04/22 showed [id number] infarct of right anterior cerebral artery with hemorrhagic conversion measuring up to 1.6cm in parasagittal superior, anterior right frontal lobe [facility] consulted who advised against surgical intervention at this time. This has been discussed with patient's family who agrees that conservative management is best at this time. Will repeat CT tomorrow. Difficult to assess what symptoms patient is having is chronic versus acute Swallow study today to see if patient is aspirating Consult PT/OT for assessment Upon discharge, patient will likely need placement in a rehab or nursing facility. Monitor for now Elevated Troponin / NSTEMI 03/03/22 1420 Trop 0.155 ; 03/03/22 21:12 Trop 0.184 ; 03/04/22 05:20 Trop 0.136 Patients troponin was elevated on admission and appears to be trending down. Cardiology consulted Paroxysmal atrial fibrillation w/ RVR Diagnosed during hospital stay in 2017 Doesn't take recommended medications other than aspirin 81mg PO QD. Likely the underlying cause of CVA on 03/03/22 Patient has [id number] score of at least 6 making her a candidate for DAPT Consult cardiology for management Hypertension Patient does't take any medications at home other than 81mg aspirin QD. Reports not liking the doctor or taking medicine. Hydralazine 10mg Q4h PRN IV for now. BP this morning okay at 158/73 mmHg. Will let cardiology manage at this time Cough COPD vs. Pneumonia vs. HF CXR on 03/03/22 showed cardiomegally and mild interstital edema with no signs of congestion/infiltrate suggestive of infectious process WBC 8.6. Afebrile Found to be COVID (+) 03/04/[address]. [address] in isolation and monitor respiratory status closely. Hyperlipidemia Tri: 147, Total chol: 261, LDL 176, VLDL 27, HDL 66 Started on atorvostatin 80mg QD Microscopic Hematuria 2+ RBC on urinalysis 03/03/22 Nitrite & Leuk (-), no culture ordered Monitor for now DVT PPX Enoxaparin 30mg SC QD Smoking history 1/2ppd x 70 years. Not interested in quitting. nicotine 14mg TD patch QD for nicotine replacement Stroke: Date of last known well: Mar 03, 2022 Symptoms onset unknown: Yes RAZIA AMBRIZ MD 03/08/22 1430: Assessment/Plan Assessment and Plan Assess & Plan/Chief Complaint Patient reports doing okay today. Her daughter is at bedside and does not think she is doing as well though. Patient has been refusing to eat most of her meals. When we discussed her oral intake she is agreeable to attempting milkshakes with Ensure. She otherwise has no complaints. Daughter did bring up the idae of a PEG tube but is hesitant. We are all agreeable to trying oral intake first and supplementing with ensure. Supervisory-Addendum Brief Verification & Attestation Participated in pt care: history Personally performed: exam, history, MDM, supervision of care Care discussed with: Medical Student Procedures: n/a Results interpretation: Verified all documentation Verification and Attestation of Medical Student E/M Service A medical student performed and documented this service in my presence. I reviewed and verified all information documented by the medical student and made modifications to such information, when appropriate. I personally performed the physical exam and medical decision making. Razia Ambriz, Mar 08, 2022,14:23 JUSTA LYONS Mar 08, 2022 09:14 RAZIA AMBRIZ MD Mar 08, 2022 14:30
[2022-03-08] MEDS: meTOproloL SUCCINATE 50 MG (TOPROL XL) TAB PO SCH (09:21)
[2022-03-08] MEDS: DOCUSATE SODIUM 100 MG (COLACE) CAP PO SCH ×2 (09:21→21:11)
[2022-03-08] MEDS: dilTIAZem120 MG (CARDIZEM CD) CAP PO SCH (09:21)
[2022-03-08] MEDS: SENNOSIDES 8.6 MG (SENOKOT) TAB PO SCH ×2 (09:21→21:03)
[2022-03-08] MEDS: NICOTINE 14 MG (NICODERM) PATCH TD SCH (09:21)
--- NOTE | 2022-03-08 09:26 | Occ Therapy Progress Note ---
Therapy Progress Note Pt on hold per nrsg due to decline in medical status. Will check on pt next available time. SAMUEL MORSE Mar 08, 2022 09:26
--- NOTE | 2022-03-08 09:33 | Physical Therapy Progress Note ---
Therapy Progress Note Patient on Hold per RN due to decline in status. PT will continue to monitor patient status. CAMMIE BEDOYA PT Mar 08, 2022 09:32
[2022-03-08] MEDS ORDERED: ENOXAPARIN 60 MG/0.6 ML (LOVENOX) SYR SQ SCH (11:00)
[2022-03-08 11:53] VITALS: BP 135/84
--- NOTE | 2022-03-08 14:04 | Speech Therapy Progress Note ---
Therapy Progress Note Speech pathology attempted dysphagia and cognitive follow up treatment with the patient at 1345. At this time, the patient's RN stated the patient has displayed decreased alertness. ST to HOLD treatment for patient safety. If the patient continues with reduced alertness levels, it would be deemed appropriate to place the patient N.P.O. pending improved alertness and appropriate participation. ST to reattempt on the subsequent treatment date. TONIO KLEIN Mar 08, 2022 14:04
[2022-03-08 16:43] VITALS: BP 148/71
[2022-03-08 20:11] VITALS: BP 157/92
[2022-03-08] MEDS: ROSUVASTATIN 10 MG (CRESTOR) TABLET PO SCH (21:03)
[2022-03-08 23:46] VITALS: BP 107/77
[2022-03-09 04:25] VITALS: BP 133/75
[2022-03-09 06:08] LABS: BASOPHILS % (AUTO) 0 % (0-10); EOSINOPHILS % (AUTO) 0 % (0-10); HEMATOCRIT 40 % (35-52); LYMPHOCYTES # (AUTO) 0.3 10^3/uL (1.0-4.0); LYMPHOCYTES % (AUTO) 3 % (12-44); MEAN CORPUSCULAR HEMOGLOBIN 30 pg (25-34); MEAN CORPUSCULAR HGB CONC 32 g/dL (32-36); MEAN CORPUSCULAR VOLUME 92 fL (80-99); MEAN PLATELET VOLUME 12.1 fL (9.0-12.2); MONOCYTES # (AUTO) 0.6 10^3/uL (0.0-1.0); MONOCYTES % (AUTO) 6 % (0-12); NEUTROPHILS # (AUTO) 9.1 10^3/uL (1.8-7.8); NEUTROPHILS % (AUTO) 90 % (42-75); PLATELET COUNT 151 10^3/uL (130-400)
[2022-03-09] MEDS: NIRMATRELVIR/RITONAVIR (PAXLOVID) TABLET PO SCH ×2 (06:11→17:07)
[2022-03-09 06:17] LABS: POTASSIUM 4.3 MMOL/L (3.6-5.0)
[2022-03-09 06:18] LABS: CALCIUM 8.5 MG/DL (8.5-10.1)
[2022-03-09 06:22] LABS: CREATININE SERUM 0.69 MG/DL (0.60-1.30)
[2022-03-09 06:25] LABS: MAGNESIUM 2.1 MG/DL (1.6-2.4)
[2022-03-09 06:36] LABS: BAND NEUTROPHILS 14 %; LYMPHOCYTES % (MANUAL) 7 %; METAMYELOCYTES % 1 %; MONOCYTES % (MANUAL) 6 %; NEUTROPHILS % (MANUAL) 72 %; SPHEROCYTES SLIGHT
[2022-03-09] MEDS: POTASSIUM CL 10MEQ/50ML IVPB 50 ML IV SCH (06:52)
[2022-03-09] MEDS: MAGNESIUM 1 GM/100 ML IVPB 100 ML IV SCH (06:52)
[2022-03-09] MEDS: KCL 20 MEQ TAB (K-DUR) PO SCH (06:53)
[2022-03-09 07:25] VITALS: BP 101/70
[2022-03-09] MEDS: DOCUSATE SODIUM 100 MG (COLACE) CAP PO SCH ×2 (09:01→20:10)
[2022-03-09] MEDS: NICOTINE 14 MG (NICODERM) PATCH TD SCH (09:01)
[2022-03-09] MEDS: SENNOSIDES 8.6 MG (SENOKOT) TAB PO SCH ×2 (09:01→20:10)
[2022-03-09] MEDS: dilTIAZem120 MG (CARDIZEM CD) CAP PO SCH (09:01)
[2022-03-09] MEDS: meTOproloL SUCCINATE 50 MG (TOPROL XL) TAB PO SCH (09:01)
--- NOTE | 2022-03-09 09:09 | Physical Therapy Progress Note ---
Therapy Progress Note Hold per RN due to declined in status. PT will continue to monitor patient status. CAMMIE BEDOYA PT Mar 09, 2022 09:09
--- NOTE | 2022-03-09 10:21 | Progress Note - Hospitalist ---
JUSTA LYONS 03/09/22 1021: Subjective HPI/CC On Admission Date Seen by Provider: Mar 09, 2022 Time Seen by Provider: 08:30 Subjective/Events-last exam Patient was awake sitting in bed when seen this morning. Her daughter was not with her this morning. Pt. reports being thirsty but the nurse was concerned Pt. was aspirating this morning when she tried. Patient is still having a cough but denies any other symptoms at this time. She did have a BM yesterday. She continues to have decreased urine output. Review of Systems General: No Chills HEENT: No Head Aches, No Visual Changes Pulmonary: No Dyspnea; Cough; No Pleuritic Chest Pain Cardiovascular: No: Chest Pain, Palpitations, Orthopnea Gastrointestinal: No: Nausea, Vomiting, Abdominal Pain, Constipation Genitourinary: No Dysuria, No Frequency Neurological: Weakness (Left arm and leg) Objective Exam Vital Signs Vital Signs Date Time Temp Pulse Resp B/P (MAP) Pulse Ox O2 Delivery O2 Flow Rate FiO2 03/09/22 12:58 123 03/09/22 11:56 36.7 18 113/85 (94) 97 Nasal Cannula 1.00 Capillary Refill : Less Than 3 Seconds General Appearance: No Apparent Distress, Thin HEENT: PERRL/EOMI, Pharynx Normal; No Moist Mucous Membranes Neck: Non Tender, Supple Respiratory: Chest Non Tender, Lungs Clear, No Accessory Muscle Use, No Respiratory Distress Cardiovascular: No Murmur, Normal Peripheral Pulses, Irregularly Irregular, Tachycardia Gastrointestinal: Non Tender, Soft Extremity: Normal Capillary Refill, Non Tender, No Calf Tenderness, No Pedal Edema, Other (0/5 strength in left upper and lower extremities. 3/5 strength right extremities.) Neurologic/Psychiatric: Alert, Oriented x3, Normal Mood/Affect Skin: Normal Color, Warm/Dry Lymphatic: No Adenopathy Results/Procedures Lab Laboratory Tests 03/09/22 05:39 Patient resulted labs reviewed. 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 No carotid stenosis noted. Head MRI 03/04/22 showed [id number] infarct of right anterior cerebral artery with hemorrhagic conversion measuring up to 1.6cm in parasagittal superior, anterior right frontal lobe [facility] consulted who advised against surgical intervention. This has been discussed with patient's family who agrees that conservative management is best at this time. Head CT 03/05/22 showed evolving right MCA A2 segment distribution CVA w/ edema and localized sulcal effacement as well as small amount of petechial clood products seen along anterior margin of this segment. Appears stable at this time. Speech therapy working on swallowing with pt. as there were concerns of aspiration on 03/04/22. Continued concerns at this time (03/09) PT/OT for rehab SW will work on finding placement in rehab/detention for patient upon discharge. Her recent covid diagnosis will create difficulties with placement. 03/08 patients family expressed concerns about little food intake and brought up idea of PEG tube. Will try Ensure milkshakes first. Unclear how successful they were as of 03/09/ Elevated Troponin / NSTEMI 03/03/22 1420 Trop 0.155 ; 03/03/22 21:12 Trop 0.184 ; 03/04/22 05:20 Trop 0.136 Patients troponin was elevated on admission and appears to be trending down. Cardiology advised against DAPT due to CVA and recommended high dose statin therapy. currently taking rosuvastatin 10mg QD PO. Paroxysmal atrial fibrillation w/ RVR Diagnosed during hospital stay in 2017 Doesn't take recommended medications at home other than aspirin 81mg PO QD. Likely the underlying cause of CVA on 03/03/22 Patient has [id number] score of at least 6 but DAPT held due to recent CVA Pt. started pm diltiazem 120mg PO QD and Metoprolol 50mg PO QD per cardiology management. Monitor closely and management per cardiology Acute Kidney Injury Cr today of .69 which has returned to baseline. Cr yesterday of 1.09 may be outlier due to error May need to begin maintenance IV fluids due to poor oral intake Hypertension Patient doesn't take any medications at home other than 81mg aspirin QD. Reports not liking the doctor or taking medicine Continue hydralazine 10mg Q4h PRN IV for now for systolic BP >160mmHg per cardiology recommendations Cough COPD vs. Pneumonia vs. HF CXR on 03/03/22 showed cardiomegally and mild interstital edema with no signs of congestion/infiltrate suggestive of infectious process Found to be COVID (+) 03/04/22 and placed in isolation and monitor respiratory status closely. COVID Tested positive 03/04/22 after being tested due to CVA and recent cough Day 5 of paxlovid. Pt. is requiring 1L supplemental O2 at this time. 03/09 WBC 10. Hypokalemia 03/09/22 K+ 4.3, appears resolved at this time. Continue K+Cl 50ml IV QD & K+Cl 40mEq PO QD. Hyperlipidemia 03/03/22 Tri: 147, Total chol: 261, LDL 176, VLDL 27, HDL 66 Continue Rosuvastatin 10mg QD Microscopic Hematuria 2+ RBC on urinalysis 03/03/22 Nitrite & Leuk (-), no culture ordered Monitor for now DVT PPX SCDs Enoxaparin held due to CVA Smoking history pd x 70 years. Not interested in quitting. 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 No carotid stenosis noted. Head MRI 03/04/22 showed [id number] infarct of right anterior cerebral artery with hemorrhagic conversion measuring up to 1.6cm in parasagittal superior, anterior right frontal lobe [facility] consulted who advised against surgical intervention at this time. This has been discussed with patient's family who agrees that conservative management is best at this time. Will repeat CT tomorrow. Difficult to assess what symptoms patient is having is chronic versus acute Swallow study today to see if patient is aspirating Consult PT/OT for assessment Upon discharge, patient will likely need placement in a rehab or nursing facility. Monitor for now Elevated Troponin / NSTEMI 03/03/22 1420 Trop 0.155 ; 03/03/22 21:12 Trop 0.184 ; 03/04/22 05:20 Trop 0.136 Patients troponin was elevated on admission and appears to be trending down. Cardiology consulted Paroxysmal atrial fibrillation w/ RVR Diagnosed during hospital stay in 2017 Doesn't take recommended medications other than aspirin 81mg PO QD. Likely the underlying cause of CVA on 03/03/22 Patient has [id number] score of at least 6 making her a candidate for DAPT Consult cardiology for management Hypertension Patient does't take any medications at home other than 81mg aspirin QD. Reports not liking the doctor or taking medicine. Hydralazine 10mg Q4h PRN IV for now. BP this morning okay at 158/73 mmHg. Will let cardiology manage at this time Cough COPD vs. Pneumonia vs. HF CXR on 03/03/22 showed cardiomegally and mild interstital edema with no signs of congestion/infiltrate suggestive of infectious process WBC 8.6. Afebrile Found to be COVID (+) 03/04/22. [address] in isolation and monitor respiratory status closely. Hyperlipidemia Tri: 147, Total chol: 261, LDL 176, VLDL 27, HDL 66 Started on atorvostatin 80mg QD Microscopic Hematuria 2+ RBC on urinalysis 03/03/22 Nitrite & Leuk (-), no culture ordered Monitor for now DVT PPX Enoxaparin 30mg SC QD Smoking history 1/2ppd x 70 years. Not interested in quitting. nicotine 14mg TD patch QD for nicotine replacement Stroke: Date of last known well: Mar 03, 2022 Symptoms onset unknown: Yes RAZIA AMBRIZ MD 03/09/221953: Assessment/Plan Assessment and Plan Assess & Plan/Chief Complaint Pt reports doing ok today. No complaints other than being thristy. Not eating or drinking much and we discussed the implications of this. We discussed options for nutrition if she was unable to keep up with oral intake and she stated multiple times she did not want a feeding tube in her stomach. She did agree to try more oral intake and when offered drinks from what was in her room she did take multiple gulps from the straw. Supervisory-Addendum Brief Verification & Attestation Participated in pt care: history, MDM, physical Personally performed: exam, history, MDM, supervision of care Care discussed with: Medical Student Procedures: n/a Results interpretation: Verified all documentation Verification and Attestation of Medical Student E/M Service A medical student performed and documented this service in my presence. I reviewed and verified all information documented by the medical student and made modifications to such information, when appropriate. I personally performed the physical exam and medical decision making. Razia Ambriz, Mar 09, 2022,19:52 JUSTA LYONS Mar 09, 2022 10:21 RAZIA AMBRIZ MD Mar 09, 2022 19:54
[2022-03-09 11:56] VITALS: BP 113/85
--- NOTE | 2022-03-09 15:58 | Progress Note - Cardiology ---
Cardiology SOAP Progress Note Subjective: Gen weakness Does not report cp or palp or syncope R-sided weakness Poor appetite No n/v/d No swelling Objective: I&O/Vital Signs 03/09/22 03/09/22 03/09/22 03/09/22 04:25 07:00 07:25 08:00 Temp 36.3 36.3 Pulse 120 132 128 Resp 20 18 B/P (MAP) 133/75 (94) 101/70 (80) Pulse Ox 93 93 O2 Delivery Nasal Cannula Nasal Cannula Room Air O2 Flow Rate 1.00 1.00 1.00 03/09/22 03/09/22 03/09/22 10:33 11:56 12:58 Temp 36.7 Pulse 93 123 Resp 18 B/P (MAP) 113/85 (94) Pulse Ox 93 97 O2 Delivery Nasal Cannula Nasal Cannula O2 Flow Rate 1.00 1.00 03/09/22 00:00 Intake Total 100 ml Output Total 105 ml Balance -5 ml Weight (Pounds): 120 Weight (Ounces): 8.0 Weight (Calculated Kilograms): [id number] Constitutional: AAO x 3, other (frail, thin/emaciated apperance) Respiratory: No accessory muscle use; chest expansion is symmetric, other (fair, bilat air entry) Cardiovascular: irregularly irregular, S1 and S2, systolic murmur (soft CONNIE at card base) Gastrointestional: No tender; soft; No guarding, No rebound; audible bowel sounds Extremities: No clubbing, No cyanosis, No significant edema Neurologic/Psychiatric: other (L-sided weakness) Results/Procedures: Labs Laboratory Tests 03/09/22 05:39: White Blood Count 10.0, Red Blood Count 4.37, Hemoglobin 13.0, Hematocrit 40, Mean Corpuscular Volume 92, Mean Corpuscular Hemoglobin 30, Mean Corpuscular Hemoglobin Concent 32, Red Cell Distribution Width 14.6H, Platelet Count 151, Mean Platelet Volume 12.1, Immature Granulocyte % (Auto) 0, Neutrophils (%) (Auto) 90H, Lymphocytes (%) (Auto) 3L, Monocytes (%) (Auto) 6, Eosinophils (%) (Auto) 0, Basophils (%) (Auto) 0, Neutrophils # (Auto) 9.1H, Lymphocytes # (Auto) 0.3L, Monocytes # (Auto) 0.6, Eosinophils # (Auto) 0.0, Basophils # (Auto) 0.0, Immature Granulocyte # (Auto) 0.0, Neutrophils % (Manual) 72, Lymphocytes % (Manual) 7, Monocytes % (Manual) 6, Metamyelocytes % 1, Band Neutrophils 14, Spherocytes SLIGHT, Sodium Level 140, Potassium Level 4.3, Chlor alphonso Level 108H, Carbon Dioxide Level 18L, Anion Gap 14, Blood Urea Nitrogen 36H, Creatinine 0.69, Estimat Glomerular Filtration Rate 84, BUN/Creatinine Ratio 52, Glucose Level 132H, Calcium Level 8.5, Magnesium Level 2.1 Laboratory Tests 03/08/22 06:25 03/09/22 05:39 A/P: Assessment: Recent/acute cerebrovascular accident - probable ischemic stroke now with hemorrhagic conversion. Due to the hemorrhagic conversion, all anticoagulant and antiplatelet medications are on hold Paroxysmal atrial fibrillation - at one point is reported to have been on diltiazem and apixaban. Her medication reconciliation for this admission appeared as though she was only taking aspirin. Hypertension - currently controlled Mildly elevated troponin - probably a small, type II non-ST elevation myocardial infarction of undetermined etiology Wide-complex tachycardia - aberrantly-conducted beats in atrial fibrillation versus ventricular tachycardia, treated with beta-stewart and CCB. Given her advanced age, recurrent strokes and DNR status, she is not an ideal candidate for additional cardiac testing. Mixed hyperlipidemia - treated with statins Cigarette smoker - advised to quit Emaciation / failure to thrive - Hosp svce managing Plan: * I interviewed and examined the patient and reviewed her records * We recommend resumption of low dose aspirin when the Hospitalist considers is it safe from a neurologic standpoint * Continue to monitor labs * Prognosis appears guarded, given multiple comorbidities Clinical Quality Measures Stroke: Date of last known well: Mar 03, 2022 Symptoms onset unknown: Yes KAYLA MALAVE MD FACP FAC CCDS Mar 09, 2022 15:58
[2022-03-09 16:12] VITALS: BP 153/86
[2022-03-09 19:47] VITALS: BP 148/91
[2022-03-09] MEDS: ROSUVASTATIN 10 MG (CRESTOR) TABLET PO SCH (20:10)
[2022-03-09] MEDS: D5 NS 1000 ML IV SOLUTION 1,000 ML IV SCH (21:47)
[2022-03-09 23:50] VITALS: BP 129/86
[2022-03-10 03:50] VITALS: BP 141/70
[2022-03-10] MEDS: NIRMATRELVIR/RITONAVIR (PAXLOVID) TABLET PO SCH (05:28)
[2022-03-10 06:16] LABS: BASOPHILS # (AUTO) 0.1 10^3/uL (0.0-0.1); BASOPHILS % (AUTO) 0 % (0-10); EOSINOPHILS % (AUTO) 0 % (0-10); HEMATOCRIT 41 % (35-52); HEMOGLOBIN 13.2 g/dL (11.5-16.0); LYMPHOCYTES # (AUTO) 0.5 10^3/uL (1.0-4.0); LYMPHOCYTES % (AUTO) 3 % (12-44); MEAN CORPUSCULAR HEMOGLOBIN 30 pg (25-34); MEAN CORPUSCULAR HGB CONC 33 g/dL (32-36); MEAN CORPUSCULAR VOLUME 93 fL (80-99); MEAN PLATELET VOLUME 12.2 fL (9.0-12.2); MONOCYTES # (AUTO) 1.2 10^3/uL (0.0-1.0); MONOCYTES % (AUTO) 8 % (0-12); NEUTROPHILS # (AUTO) 13.3 10^3/uL (1.8-7.8); NEUTROPHILS % (AUTO) 88 % (42-75); PLATELET COUNT 152 10^3/uL (130-400); WHITE BLOOD COUNT 15.2 10^3/uL (4.3-11.0)
[2022-03-10 06:42] LABS: CALCIUM 8.9 MG/DL (8.5-10.1); CREATININE SERUM 0.74 MG/DL (0.60-1.30); MAGNESIUM 2.2 MG/DL (1.6-2.4); POTASSIUM 4.4 MMOL/L (3.6-5.0)
[2022-03-10] MEDS: POTASSIUM CL 10MEQ/50ML IVPB 50 ML IV SCH (06:49)
[2022-03-10] MEDS: MAGNESIUM 1 GM/100 ML IVPB 100 ML IV SCH (06:49)
[2022-03-10] MEDS: KCL 20 MEQ TAB (K-DUR) PO SCH (06:50)
[2022-03-10 07:06] LABS: BAND NEUTROPHILS 8 %; BASOPHILS % (MANUAL) 0 %; EOSINOPHILS % (MANUAL) 0 %; LYMPHOCYTES % (MANUAL) 3 %; METAMYELOCYTES % 3 %; MONOCYTES % (MANUAL) 2 %; NEUTROPHILS % (MANUAL) 84 %; RBC MORPH NORMAL
[2022-03-10 07:43] VITALS: BP 141/88
[2022-03-10] MEDS: D5 NS 1000 ML IV SOLUTION 1,000 ML IV SCH ×2 (09:05→16:22)
[2022-03-10] MEDS: NICOTINE 14 MG (NICODERM) PATCH TD SCH (09:05)
[2022-03-10] MEDS: DOCUSATE SODIUM 100 MG (COLACE) CAP PO SCH ×2 (09:05→20:56)
[2022-03-10] MEDS: SENNOSIDES 8.6 MG (SENOKOT) TAB PO SCH ×2 (09:05→20:56)
[2022-03-10] MEDS: meTOproloL SUCCINATE 50 MG (TOPROL XL) TAB PO SCH (09:05)
[2022-03-10] MEDS: dilTIAZem120 MG (CARDIZEM CD) CAP PO SCH (09:05)
[2022-03-10 11:41] VITALS: BP 157/70
[2022-03-10] MEDS: GLYCOPYRROLATE 0.2 MG/ML (ROBINUL) 2 ML VIAL IV PRN (11:57)
--- NOTE | 2022-03-10 12:00 | Diagnostic Imaging Report ---
CLINICAL INDICATIONS: Patient with cough. EXAM: Portable chest x-ray upright view. COMPARISON: Chest x-ray dated 03/03/2022. FINDINGS: There is mild cardiomegaly with no significant pulmonary vascular congestion. There is interval development of a small amount of Modic consolidation involving right lung base. There is suspected right pleural effusion. The remainder of the lungs are stable. Increased lung markings noted. There is no pneumothorax. The remainder of this exam shows no significant interval change compared to the prior study of comparison. IMPRESSION: 1: There is interval development of right lung base infiltrate. Suspected small right pleural effusion. 2: There is cardiomegaly with no significant pulmonary vascular congestion. Dictated by: Dictated on workstation # [id number]
[2022-03-10] MEDS ORDERED: BISACODYL 10 MG SUPP (DULCOLAX) PR PRN (13:15)
[2022-03-10] MEDS ORDERED: PROMETHAZINE INJ 25 MG/ML (PHENERGAN) AMP IVP PRN (13:15)
[2022-03-10] MEDS ORDERED: ARTIFICAL TEARS 0.4 ML UNIT DOSE (REFRESH PLUS) OU PRN (13:15)
[2022-03-10] MEDS ORDERED: RT-ALBUTEROL/IPRATROPIUM 3 ML (DUONEB) VIAL INH PRN (13:15)
[2022-03-10] MEDS ORDERED: LORazepam ORAL CONCENTRATE 2 MG/ML 30 ML (ATIVAN) PO PRN (13:15)
[2022-03-10] MEDS ORDERED: ONDANSETRON 4 MG/2 ML (SDV) Z0FRAN IVP PRN (13:15)
[2022-03-10] MEDS ORDERED: LORazepam 1 MG (ATIVAN) TAB SL PRN (13:15)
[2022-03-10] MEDS ORDERED: ACETAMINOPHEN 650 MG SUPP (TYLENOL) PR PRN (13:15)
[2022-03-10] MEDS ORDERED: SALIVA SUBSTITUTE 60 ML SPRAY(MOUTHKOTE) MM PRN (13:15)
[2022-03-10] MEDS ORDERED: SCOPOLAMINE 1.5 MG (TRANSDERM-SCOP) PATCH TOP SCH (13:15)
[2022-03-10] MEDS ORDERED: ATROPINE 1% OPHTHALMIC SOLN 2 ML SL PRN (13:15)
[2022-03-10] MEDS: cefTRIAXone 1 GM PRE-MIX 50 ML IV SCH (14:07)
[2022-03-10] MEDS: morphine INJ 4 MG/ML 1 ML (VIAL/SYRINGE) IV PRN ×2 (14:13→23:45)
--- NOTE | 2022-03-10 14:39 | Progress Note - Hospitalist ---
JUSTA LYONS 03/10/22 1439: Subjective HPI/CC On Admission Date Seen by Provider: Mar 10, 2022 Time Seen by Provider: 10:15 Subjective/Events-last exam Patient was asleep and difficult to awaken this morning. She could be heard gurgling while breathing and when discussed with the nurse she reports that this was improved versus when she saw her initially today. Patient is requiring 3L o2 at this time which is a new development from 1L she has been requiring. Dextrose/normal saline was initiated yesterday at 100mls/hr due to poor oral intake. Patient reports being tired this morning but would not stay awake enough to answer other questions. Review of Systems General: Fatigue ROS was largely unable to be obtained at this time. Objective Exam Vital Signs Vital Signs Date Time Temp Pulse Resp B/P (MAP) Pulse Ox O2 Delivery O2 Flow Rate FiO2 03/10/22 12:50 97 03/10/22 11:41 35.9 20 157/70 (99) 89 Nasal Cannula 3.00 Capillary Refill : Less Than 3 Seconds General Appearance: Mild Distress, Thin HEENT: No Moist Mucous Membranes Neck: Non Tender, Supple Respiratory: Other (decreased right sided breath sounds with inspiratory/expiratory gurgling heard loudest on left side.) Cardiovascular: No Murmur, Normal Peripheral Pulses, Irregularly Irregular Gastrointestinal: Normal Bowel Sounds, Non Tender, Soft Extremity: Normal Capillary Refill, Normal Range of Motion, Non Tender, No Calf Tenderness Neurologic/Psychiatric: Disoriented, Motor Weakness, Sensory Deficit, Other (Patient was very difficult to be awoken and couldn't answer my questioning during the visit) Skin: Normal Color, Warm/Dry Lymphatic: No Adenopathy Results/Procedures Lab Laboratory Tests 03/10/22 06:02 Patient resulted labs reviewed. 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 Surgical intervention was advised against by neurology Speech therapy working on swallowing with pt. as there were concerns of aspiration on 03/04/22. Continued concerns at this time (03/09) PT/OT and ST 03/08/22: Patients family discussed idea of PEG tube forcontinued food refusal, but patient was assertive that she was not interested in this and would eat when she was hungry. 03/10/22: patient looks significantly worse today. Will order Chest x ray and urinalysis to look for easily treated causes of todays presentation. Comfort care/ hospice was discussed with patients family who is agreeable that this would be best if easily treated infection isn't discovered. SW will work on finding placement in rehab/alf for patient upon discharge. Elevated Troponin / NSTEMI 03/03/22 1420 Trop 0.155 ; 03/03/22 21:12 Trop 0.184 ; 03/04/22 05:20 Trop 0.136 Patients troponin was elevated on admission and appears to be trending down. Cardiology advised against DAPT due to CVA and recommended high dose statin therapy. currently taking rosuvastatin 10mg QD PO. Leukocytosis WBC today of 15.2 is a new development. Chest x ray and urinalysis today to look for underlying infection. May be s econdary to COVID. Paroxysmal atrial fibrillation w/ RVR Diagnosed during hospital stay in 2017 Doesn't take recommended medications at home other than aspirin 81mg PO QD. Likely the underlying cause of CVA on 03/03/22 Patient has [id number] score of at least 6 but DAPT held due to recent CVA Pt. started pm diltiazem 120mg PO QD and Metoprolol 50mg PO QD per cardiology management. Monitor closely and management per cardiology Acute Kidney Injury Cr today of .74 remains near baseline. Cr of 1.09 on 03/08 may be outlier due to error Hypertension Patient doesn't take any medications at home other than 81mg aspirin QD. Reports not liking the doctor or taking medicine Continue hydralazine 10mg Q4h PRN IV for now for systolic BP >160mmHg per cardiology recommendations Cough COPD vs. Pneumonia vs. HF CXR on 03/03/22 showed cardiomegally and mild interstital edema with no signs of congestion/infiltrate suggestive of infectious process Found to be COVID (+) 03/04/22 and placed in isolation and monitor respiratory status closely. COVID Tested positive 03/04/22 after being tested due to CVA and recent cough Day 6 (final day) of paxlovid. Pt. has been requiring up to 3L supplemental O2. 03/10 WBC 15.2. Hypokalemia 03/09/22 K+ 4.3, appears resolved at this time. Continue K+Cl 50ml IV QD & K+Cl 40mEq PO QD. Hyperlipidemia 03/03/22 Tri: 147, Total chol: 261, LDL 176, VLDL 27, HDL 66 Continue Rosuvastatin 10mg QD Microscopic Hematuria 2+ RBC on urinalysis 03/03/22 Nitrite & Leuk (-), no culture ordered Monitor for now DVT PPX SCDs Enoxaparin held due to CVA Smoking history pd x 70 years. Not interested in quitting. 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 No carotid stenosis noted. Head MRI 03/04/22 showed [id number] infarct of right anterior cerebral artery with hemorrhagic conversion measuring up to 1.6cm in parasagittal superior, anterior right frontal lobe [facility] consulted who advised against surgical intervention at this time. This has been discussed with patient's family who agrees that conservative management is best at this time. Will repeat CT tomorrow. Difficult to assess what symptoms patient is having is chronic versus acute Swallow study today to see if patient is aspirating Consult PT/OT for assessment Upon discharge, patient will likely need placement in a rehab or nursing facility. Monitor for now Elevated Troponin / NSTEMI 03/03/22 1420 Trop 0.155 ; 03/03/22 21:12 Trop 0.184 ; 03/04/22 05:20 Trop 0.136 Patients troponin was elevated on admission and appears to be trending down. Cardiology consulted Paroxysmal atrial fibrillation w/ RVR Diagnosed during hospital stay in 2017 Doesn't take recommended medications other than aspirin 81mg PO QD. Likely the underlying cause of CVA on 03/03/22 Patient has [id number] score of at least 6 making her a candidate for DAPT Consult cardiology for management Hypertension Patient does't take any medications at home other than 81mg aspirin QD. Reports not liking the doctor or taking medicine. Hydralazine 10mg Q4h PRN IV for now. BP this morning okay at 158/73 mmHg. Will let cardiology manage at this time Cough COPD vs. Pneumonia vs. HF CXR on 03/03/22 showed cardiomegally and mild interstital edema with no signs of congestion/infiltrate suggestive of infectious process WBC 8.6. Afebrile Found to be COVID (+) 03/04/[address]. [address] in isolation and monitor respiratory status closely. Hyperlipidemia Tri: 147, Total chol: 261, LDL 176, VLDL 27, HDL 66 Started on atorvostatin 80mg QD Microscopic Hematuria 2+ RBC on urinalysis 03/03/22 Nitrite & Leuk (-), no culture ordered Monitor for now DVT PPX Enoxaparin 30mg SC QD Smoking history 1/2ppd x 70 years. Not interested in quitting. nicotine 14mg TD patch QD for nicotine replacement Stroke: Date of last known well: Mar 03, 2022 Symptoms onset unknown: Yes RAZIA AMBRIZ MD 03/10/222120: Assessment/Plan Assessment and Plan Assess & Plan/Chief Complaint Pt much less alert today. Did not awake to answer any questions for me today. Overall clinically not doing well. I called and updated daughter twice today and also returned to talk with patient's brother and sister in law when they visited. Given her previously stated wishes family would not want to pursue any aggressive measures and they do not want a PEG tube. They all reiterate multiple times that they don't want her to suffer. CXR and UA ordered to assess for underlying infection as cause of mental status change. Small pneumonia noted on CXR and may be due to aspiration. RN suctioning multiple times a day. Ultimately plan after conversations with family is trial antibiotics but also add comfort care measures to keep patient comfortable and if she improves will continue IV abx but if she continues to decline will treat solely for comfortable. Steph (daughter), Savannah and Deuce (sister in law and brother) are aware that patient may pass awayin the near future. Savannah expresses comfort in knowing Candis has made her peace with God. All questions answered. . Supervisory-Addendum Brief Verification & Attestation Participated in pt care: history, MDM, physical Personally performed: exam, history, MDM, supervision of care Care discussed with: Medical Student Procedures: n/a Results interpretation: Verified all documentation Verification and Attestation of Medical Student E/M Service A medical student performed and documented this service in my presence. I revie wed and verified all information documented by the medical student and made modifications to such information, when appropriate. I personally performed the physical exam and medical decision making. Razia Ambriz, Mar 10, 2022,21:16 JUSTA LYONS Mar 10, 2022 14:39 RAZIA AMBRIZ MD Mar 10, 2022 21:21
[2022-03-10 16:00] VITALS: BP 97/49
[2022-03-10 19:44] VITALS: BP 125/88
[2022-03-10] MEDS: ROSUVASTATIN 10 MG (CRESTOR) TABLET PO SCH (20:56)
[2022-03-10 23:35] VITALS: BP 119/82
[2022-03-11] MEDS: POTASSIUM CL 10MEQ/50ML IVPB 50 ML IV SCH (05:02)
[2022-03-11] MEDS: KCL 20 MEQ TAB (K-DUR) PO SCH (05:02)
[2022-03-11] MEDS: MAGNESIUM 1 GM/100 ML IVPB 100 ML IV SCH (05:02)
[2022-03-11] MEDS: GLYCOPYRROLATE 0.2 MG/ML (ROBINUL) 2 ML VIAL IV PRN (06:48)
--- NOTE | 2022-03-11 07:26 | Physical Therapy Progress Note ---
Therapy Progress Note PT to dismiss patient from services at this time due to decline in status. CAMMIE BEDOYA PT Mar 11, 2022 07:26
--- NOTE | 2022-03-11 08:33 | Progress Note ---
Standard Progress Note Progress Notes/Assess & Plan Date Seen by a Provider: Mar 11, 2022 Time Seen by a Provider: 08:33 Progress/Assessment & Plan The patient is now on comfort care. As such, cardiology will sign off. Please call if there is any change in clinical status. JAYE NUNN JR, MD Mar 11, 2022 08:33
[2022-03-11] MEDS: dilTIAZem120 MG (CARDIZEM CD) CAP PO SCH (08:55)
[2022-03-11] MEDS: DOCUSATE SODIUM 100 MG (COLACE) CAP PO SCH ×2 (08:56→20:41)
[2022-03-11] MEDS: SENNOSIDES 8.6 MG (SENOKOT) TAB PO SCH ×2 (08:56→20:41)
[2022-03-11] MEDS: NICOTINE 14 MG (NICODERM) PATCH TD SCH (08:56)
[2022-03-11] MEDS: meTOproloL SUCCINATE 50 MG (TOPROL XL) TAB PO SCH (08:56)
--- NOTE | 2022-03-11 10:05 | Speech Therapy Progress Note ---
Therapy Progress Note Per RN, comfort measures have been introduced for the patient due to a decline in status. If the patient does not display appropriate alertness levels, the patient should remain N.P.O. for patient safety. At this time, ST to sign off due to the decline. If ST services are warranted, please re-consult ST. Thank you. TONIO KLEIN Mar 11, 2022 10:05
--- NOTE | 2022-03-11 10:12 | Occ Therapy Progress Note ---
Therapy Progress Note Per RN, comfort measures have been introduced for the patient due to a decline in status. OT to dismiss services at this time due to decline in medical status. SAMUEL MORSE Mar 11, 2022 10:12
[2022-03-11] MEDS: morphine INJ 4 MG/ML 1 ML (VIAL/SYRINGE) IV PRN (10:17)
[2022-03-11] MEDS: cefTRIAXone 1 GM PRE-MIX 50 ML IV SCH (15:18)
--- NOTE | 2022-03-11 17:36 | Progress Note - Hospitalist ---
Subjective HPI/CC On Admission Date Seen by Provider: Mar 11, 2022 Time Seen by Provider: 12:35 Objective Exam Vital Signs Vital Signs Date Time Temp Pulse Resp B/P (MAP) Pulse Ox O2 Delivery O2 Flow Rate FiO2 03/11/22 08:00 Nasal Cannula 3.00 03/11/22 01:00 126 03/10/22 23:35 36.4 18 119/82 (94) 92 Capillary Refill : Less Than 3 Seconds General Appearance: No Apparent Distress, Chronically ill, Thin Respiratory: Lungs Clear, No Respiratory Distress Cardiovascular: Regular Rate, Rhythm, No Murmur Gastrointestinal: Normal Bowel Sounds, Soft Extremity: Normal Inspection, No Pedal Edema Neurologic/Psychiatric: Other (obtunded, unresponsive) Results/Procedures Lab Patient resulted labs reviewed. Assessment/Plan Assessment and Plan Assess & Plan/Chief Complaint Acute ischemic stroke NSTEMI Paroxysmal atrial fibrillation w/ RVR Acute Kidney Injury Hypertension COVID-19 Hypokalemia Hyperlipidemia Non-compliance with medication regimen Poor prognosis Advanced age Comfort measures only status Comfort care order set in place Diagnosis/Problems Diagnosis/Problems (1) Acute ischemic stroke Status: Acute (2) Paroxysmal atrial fibrillation with RVR Status: Acute (3) HTN (hypertension) Status: Acute (4) HLD (hyperlipidemia) Status: Acute (5) Noncompliance with medication regimen Status: Acute (6) Former smoker Status: Acute (7) COVID-19 Status: Acute (8) ELIA (acute kidney injury) Status: Acute (9) NSTEMI (non-ST elevation myocardial infarction) Status: Acute Clinical Quality Measures Stroke: Date of last known well: Mar 03, 2022 Symptoms onset unknown: Yes SHAWNA MATT MD Mar 11, 2022 17:36
[2022-03-11] MEDS: ROSUVASTATIN 10 MG (CRESTOR) TABLET PO SCH (20:41)
[2022-03-12] MEDS: POTASSIUM CL 10MEQ/50ML IVPB 50 ML IV SCH (05:48)
[2022-03-12] MEDS: MAGNESIUM 1 GM/100 ML IVPB 100 ML IV SCH (05:48)
[2022-03-12] MEDS: KCL 20 MEQ TAB (K-DUR) PO SCH (05:49)
[2022-03-12] MEDS: morphine INJ 4 MG/ML 1 ML (VIAL/SYRINGE) IV PRN (06:02)
[2022-03-12] MEDS: dilTIAZem120 MG (CARDIZEM CD) CAP PO SCH (09:00)
[2022-03-12] MEDS: meTOproloL SUCCINATE 50 MG (TOPROL XL) TAB PO SCH (10:08)
[2022-03-12] MEDS: DOCUSATE SODIUM 100 MG (COLACE) CAP PO SCH (10:08)
[2022-03-12] MEDS: SENNOSIDES 8.6 MG (SENOKOT) TAB PO SCH (10:08)
[2022-03-12] MEDS: NICOTINE 14 MG (NICODERM) PATCH TD SCH (10:09)
[2022-03-12] MEDS: cefTRIAXone 1 GM PRE-MIX 50 ML IV SCH (14:38)
--- NOTE | 2022-03-12 15:10 | Progress Note - Hospitalist ---
Subjective HPI/CC On Admission Date Seen by Provider: Mar 12, 2022 Time Seen by Provider: 13:30 Subjective/Events-last exam She is unresponsive. Her family is at the bedside. Objective Exam Vital Signs Vital Signs Date Time Temp Pulse Resp B/P (MAP) Pulse Ox O2 Delivery O2 Flow Rate FiO2 03/12/22 08:00 Nasal Cannula 2.00 03/11/22 01:00 126 03/10/22 23:35 36.4 18 119/82 (94) 92 Capillary Refill : Less Than 3 Seconds General Appearance: No Apparent Distress, Chronically ill, Thin Respiratory: No Respiratory Distress, Decreased Breath Sounds Cardiovascular: No Murmur, Tachycardia Gastrointestinal: Soft, Abnormal Bowel Sounds Extremity: Normal Inspection, No Pedal Edema Neurologic/Psychiatric: Other (unresponsive) Results/Procedures Lab Patient resulted labs reviewed. Assessment/Plan Assessment and Plan Assess & Plan/Chief Complaint Acute ischemic stroke NSTEMI Paroxysmal atrial fibrillation w/ RVR Acute Kidney Injury Hypertension COVID-19 Hypokalemia Hyperlipidemia Non-compliance with medication regimen Poor prognosis Advanced age Comfort measures only status Comfort care order set in place Diagnosis/Problems Diagnosis/Problems (1) Acute ischemic stroke Status: Acute (2) Paroxysmal atrial fibrillation with RVR Status: Acute (3) HTN (hypertension) Status: Acute (4) HLD (hyperlipidemia) Status: Acute (5) Noncompliance with medication regimen Status: Acute (6) Former smoker Status: Acute (7) COVID-19 Status: Acute (8) ELIA (acute kidney injury) Status: Acute (9) NSTEMI (non-ST elevation myocardial infarction) Status: Acute (10) Comfort measures only status Status: Acute Clinical Quality Measures Stroke: Date of last known well: Mar 03, 2022 Symptoms onset unknown: Yes SHAWNA MATT MD Mar 12, 2022 15:10
--- NOTE | 2022-03-12 18:08 | Discharge Summary ---
Discharge Summary Hospital Course Problems/Dx: (1) Acute ischemic stroke Status: Acute (2) Paroxysmal atrial fibrillation with RVR Status: Acute (3) HTN (hypertension) Status: Acute (4) HLD (hyperlipidemia) Status: Acute (5) Noncompliance with medication regimen Status: Acute (6) Former smoker Status: Acute (7) COVID-19 Status: Acute (8) ELIA (acute kidney injury) Status: Acute (9) NSTEMI (non-ST elevation myocardial infarction) Status: Acute (10) Comfort measures only status Status: Acute Hospital Course Date of Admission: Mar 03, 2022 at 17:04 Admission Diagnosis : Acute ischemic stroke Family Physician/Provider: Date of Discharge: 03/12/22 Discharge Diagnosis: Acute ischemic stroke Hospital Course: Juliana Mann (Shirley) was an 86 year old female who was admitted with an acute ischemic stroke. She was not a candidate for tPA. Her imaging was consistent with acute anterior cerebral artery stroke. She had several other locations with acute-subacute and chronic infarcts. She has a history of hypertension and atrial fibrillation but was non-adherent to her medication regimen and had not been following with a physician. She was a current smoker. Her status declined and her family made the decision to transition to comfort measures only status. She subsequently on 03/12/22 at 1600. Labs and Pending Lab Test: Home Meds Active Reported Aspirin 81 Mg Tab.chew 81 Mg PO DAILY Assessment/Pt Instructions Patient Discharge Physical Examination Vital Signs Vital Signs Date Time Temp Pulse Resp B/P (MAP) Pulse Ox O2 Delivery O2 Flow Rate FiO2 03/12/22 08:00 Nasal Cannula 2.00 03/11/22 01:00 126 03/10/22 23:35 36.4 18 119/82 (94) 92 Allergies: Coded Allergies: No Known Drug Allergies (Unverified , 08/15/13) Discharge Summary Date of Admission Mar 03, 2022 at 17:04 Date of Discharge Mar 12, 2022 at 16:00 Discharge Date: Mar 12, 2022 Discharge Time: 16:00 Admission Diagnosis Acute ischemic stroke Comfort Measures/ End of Life Care: Comfort Measures Date of : Mar 12, 2022 Time of : 16:00 Discharge Diagnosis Acute ischemic stroke NSTEMI Paroxysmal atrial fibrillation w/ RVR Acute Kidney Injury Hypertension COVID-19 Hypokalemia Hyperlipidemia Non-compliance with medication regimen Poor prognosis Advanced age Comfort measures only status (1) Acute ischemic stroke Status: Acute (2) Paroxysmal atrial fibrillation with RVR Status: Acute (3) HTN (hypertension) Status: Acute (4) HLD (hyperlipidemia) Status: Acute (5) Noncompliance with medication regimen Status: Acute (6) Former smoker Status: Acute (7) COVID-19 Status: Acute (8) ELIA (acute kidney injury) Status: Acute (9) NSTEMI (non-ST elevation myocardial infarction) Status: Acute (10) Comfort measures only status Status: Acute Clinical Quality Measures Stroke: Date of last known well: Mar 03, 2022 Symptoms onset unknown: Yes SHAWNA MATT MD Mar 12, 2022 17:59
== END 2022-03-12 16:00 | disposition expired | DRG 64 ==
LOC: EDUNIT# 14:11 → ER 14:12 → 4TH 17:04
PROVIDERS: ADMIT Internal Medicine; ATTEND Internal Medicine
PROC: 8E0ZXY6 Isolation (ICD-10-PCS; principal; 2022-03-04)
DX: I63.521 Cerebral infarction due to unspecified occlusion or stenosis of right anterior cerebral artery (principal); I21.A1 Myocardial infarction type 2; I61.9 Nontraumatic intracerebral hemorrhage, unspecified; U07.1 COVID-19; G81.04 Flaccid hemiplegia affecting left nondominant side; R64 Cachexia; N17.9 Acute kidney failure, unspecified; I10 Essential (primary) hypertension; R29.712 NIHSS score 12; Z66 Do not resuscitate; Z51.5 Encounter for palliative care; Z68.20 Body mass index [BMI] 20.0-20.9, adult; R31.9 Hematuria, unspecified; I16.0 Hypertensive urgency; F17.210 Nicotine dependence, cigarettes, uncomplicated; I25.10 Atherosclerotic heart disease of native coronary artery without angina pectoris; E78.2 Mixed hyperlipidemia; K21.9 Gastro-esophageal reflux disease without esophagitis; M19.91 Primary osteoarthritis, unspecified site; F32.A Depression, unspecified; H54.7 Unspecified visual loss; I48.0 Paroxysmal atrial fibrillation; I08.3 Combined rheumatic disorders of mitral, aortic and tricuspid valves; E87.6 Hypokalemia; R00.0 Tachycardia, unspecified; Z91.14 Patient's other noncompliance with medication regimen; Z79.01 Long term (current) use of anticoagulants; Z79.82 Long term (current) use of aspirin
CPT/HCPCS: 36415; 70450; 70496; 70498; 70551; 71045; 80048; 80053; 80061; 81000; 82947; 83735; 84443; 84484; 85007; 85025; 85027; 85379; 85610; 85730; 87636; 93005; 93306; 94664; 94760; 96374